=== PATIENT | female | born 1950 | race Caucasian/White ===

== ENCOUNTER → 2017-09-10 13:01 | Outpatient (CLI) | payer MEDICARE, SELFPAY ==
--- NOTE | 2017-09-10 13:06 | XR_ITS ---
XR knee RT 4V HISTORY: ITS.REASON: Right knee pain ORDERING PHYSICIAN: Manuel Sims MD PATIENT AGE: 67 years COMPARISON: 03/15/2014 FINDINGS: Weightbearing views are performed There are moderate to severe osteoarthritic changes of the medial compartment with mild to moderate osteoarthritic changes of the lateral compartment and patellofemoral joint. Calcific densities once again noted in the popliteal fossa which measures 18 mm not significant change. No fracture or dislocation. IMPRESSION: Moderate to severe osteoarthritis of the right knee not signaling change compared to the previous exam. No change partial calcified loose body in the popliteal fossa
== END ==
PROVIDERS: PCP Family Medicine; Visit Provider Orthopaedic Surgery
DX: M25.561 Pain in right knee (principal)
CPT/HCPCS: 73564

== ENCOUNTER → 2017-09-28 08:39 | Outpatient (CLI) | payer MEDICARE, SELFPAY ==
[2017-09-28 08:57] LABS: Blood Urea Nitrogen 20 mg/dL (7-18); Creatinine,Serum 1.05 mg/dL (0.55-1.02); Estimated Glomerular Filt Rate 53 ml/min (>60); GFR (African American) 64 ML/MIN (>60)
--- NOTE | 2017-09-28 09:03 | CT_ITS ---
CT abdomen wo/w con CLINICAL INDICATION: ITS.REASON: STEATOSIS OF THE LIVER ORDERING PHYSICIAN: Trey Evans MD PATIENT AGE: 67 years COMPARISON: None TECHNIQUE: Axial images obtained with sagittal and coronal reformats. PROCEDURE: Oral Contrast: None IV Contrast: 75 mL's of Isovue-370. FINDINGS: Lung bases are clear aside from a calcified granuloma in the left lower lobe. No focal liver lesion. There is mild diffuse hepatic steatosis. There has been prior cholecystectomy. No ductal dilatation. Spleen, adrenal glands, and pancreas have an unremarkable appearance. There is a 2.8 cm isodensity involving the left kidney anteriorly consistent with a renal cyst. A smaller cyst is present along the lower pole the left kidney at 1.6 cm. No obstructing renal or ureteral calculi. Unremarkable appendix. There are scattered diverticula throughout the colon including the cecum. These are more prominent in the sigmoid colon. There is no evidence of diverticulitis. No pelvic mass, abnormal fluid collection, or focal inflammatory changes evident. No evidence of intestinal obstruction or free air. No acute bony anomalies. IMPRESSION: 1. Mild hepatic steatosis. 2. An colonic diverticulosis without diverticulitis. 3. Left renal cysts
== END ==
PROVIDERS: Family Provider Nurse Practitioner Family; PCP Family Medicine; Visit Provider Family Medicine
DX: K76.0 Fatty (change of) liver, not elsewhere classified (principal)
CPT/HCPCS: 36415; 74170; 82565; 84520; Q9967

== ENCOUNTER → 2018-03-15 09:41 | Outpatient (CLI) | payer MEDICARE, SELFPAY ==
--- NOTE | 2018-03-15 09:43 | MM_ITS ---
MM Dig screening mamm BI w/CAD ORDERING PHYSICIAN : Lam Magallon MD PATIENT AGE: 67 years GENDER: Female COMPARISON: INDICATION: ITS.REASON: Routine Mammogram Screening 67-year-old previous lumpectomy with radiation on right no new complaints. No hormones. Family history. Patient's daughter with breast cancer age 40. Premenopausal as well TECHNIQUE: Standard CC and MLO images were obtained. R2 CAD reviewed. FINDINGS: LEFT BREAST: STABLE. No new findings. Stable asymmetric areas of density in the left breast appear similar to previous studies dated back to at least 2014 RIGHT BREAST: Right breast is smaller than the left due to previous lumpectomy & radiation. A long-standing scar transversely breast inferior to nipple at left breast again evident from previous lumpectomy & radiation. On today's study note interval development of new calcifications likely related to fat necrosis:.... ..First of all Interval development thin rim-like egg shell type calcification of a density at the left breast, medial inferior to the nipple labeled X. This measures 13 mm length x 8 mm APx 6 mm wide. This most likely reflects an area of fat necrosis with calcification about its margin. ... Second is a small row of dense crush stone like calcification some slight irregular. These extend along structure in the medial retroareolar region generally leading towards the above-mentioned area of calcified fat necrosis. These labeled Y. These calcifications are somewhat nonspecific but most likely reflect fat necrosis... I would recommend a follow-up study in 6 months to further characterize this latter grouping calcifications. More likely related to fat necrosis but nonspecific ovoid fat density area labeled Z at the medial right breast is unchanged since 2015) (compatible with an area of fat necrosis or possibly circumscribed lipoma it measures 20 mm X a 12 mm. At this feature and become apparent since 2014 -------IMPRESSION 1. RIGHT BREAST. -- Recommend follow-up right mammogram 6 months ... Previous lumpectomy & radiation results in decreased volume & scarring. ... New ovoid area of fat necrosis. The rim-like,calcification measuring 13 mm x 8 mm at the inferior medial breast near the transverse incision. This area labeled X ... New Row of dense calcifications labeled Y. These calcifications are fairly dense but variable slight irregular more nonspecific, but at this point I would favor that necrosis with overall findings. But would recommend a follow-up right mammogram 6 months to further evaluate 6 month follow-up mammogram on right Follow-up would be important & should be emphasized 2. LEFT BREAST- stable. Follow-up left mammogram 1 year BI-RADS Category: 3 Probably Benign Finding Short Term Follow-up RECOMMENDED FOLLOW-UP: 6M 6 MONTH FOLLOW-UP Right mammogram 6 months (A letter has been sent to the patient regarding results of the study.)
== END ==
PROVIDERS: Family Provider Nurse Practitioner Family; PCP Family Medicine; Visit Provider Nurse Practitioner Obstetrics & Gynecology
DX: Z12.31 Encounter for screening mammogram for malignant neoplasm of breast (principal)
CPT/HCPCS: 77067

== ENCOUNTER → 2018-04-21 08:47 | Outpatient (CLI) | payer MEDICARE, SELFPAY ==
--- NOTE | 2018-04-21 08:50 | XR_ITS ---
XR knee RT 4V HISTORY: ITS.REASON: RIGHT KNEE PAIN/ WEIGHTBEARING VIEWS ORDERING PHYSICIAN: James Anderson MD PATIENT AGE: 67 years COMPARISON: 09/10/2017 FINDINGS: Severe osteoarthritic changes are present involving the medial compartment with loss of joint space also sclerosis and osteophyte formation. There are mild osteoarthritic changes of the patellofemoral joint. Small suprapatellar effusion suspected. A coarse 19 mm calcific density is once again noted in the popliteal fossa and may be due to a synovial osteochondroma. There is a lucent defect involving the proximal tibia at the lateral tibial spine area which could be due to a subarticular cyst not significant change. No fracture or dislocation. There is some subcortical lucency of the medial femoral condyle millimeters small subarticular cyst. IMPRESSION: Severe osteoarthritis synovial osteochondroma and possible small subarticular cyst of the proximal tibia and of the medial femoral condyle. Osteoarthritis may be slightly worse compared to the previous exam. The synovial osteochondromas appears slightly larger however, this could be due to magnification
== END ==
PROVIDERS: PCP Family Medicine; Visit Provider Orthopaedic Surgery
DX: M25.561 Pain in right knee (principal)
CPT/HCPCS: 73564

== ENCOUNTER → 2018-05-20 11:51 | Outpatient (CLI) | payer MEDICARE, SELFPAY ==
[2018-05-20 12:04] LABS: Microscopic, Urine URINE MICROSCOPIC (MICROSCOPIC)
--- NOTE | 2018-05-20 12:26 | XR_ITS ---
XR chest 2V HISTORY: Smoker. Hypertension. Cough. ITS.REASON: HTN, SMOKER ORDERING PHYSICIAN: James Anderson MD PATIENT AGE: 67 years Technique: Tian lateral chest COMPARISON: CT chest June 25, 2017. 2 view CXR: PA & lateral chest Jun 22, 2017 FINDINGS: No significant new or acute findings. I would note minimal linear scarring & atelectasis at the bases bilaterally. This is most evident with posterior sulcus on the lateral view but there is also some minimal linear scarring towards the projected over the right hemidiaphragm and towards left CP angle. With atelectasis cancer minimal linear densities in these regions.. No discrete focal infiltrate. No definitive new nodules identified. Apices the lungs are clear. Heart is normal in siz. With Normal pulmonary vascularity. . Yancy and mediastinal structures satisfactory. Minimal Calcified aortic knob again observed. Stable calcified granuloma at the left midlung IMPRESSION: , 1 Bibasilar atelectasis Linear,/ discoid atelectasis toward both lung bases. . 2. Nothing definitely acute otherwise evident. Mild hyperexpansion mild chronic changes.
[2018-05-20 12:38] LABS: Basophils # 0.1 K/mm3 (0-0.2); Basophils % 0.8 % (0.1-2.0); Eosinophils # 0.5 K/mm3 (0.0-0.4); Eosinophils % 6.8 % (0.1-12.0); Hematocrit 40.3 % (37.0-47.0); Hemoglobin 12.7 g/dL (12.2-16.2); Lymphocytes # 1.7 K/mm3 (0.7-4.5); Lymphocytes % 22.8 K/mm3 (10-50); Mean Corpuscular HGB Conc 31.5 g/dL (31.8-35.4); Mean Corpuscular Hemoglobin 28.2 pg (27.0-31.2); Mean Corpuscular Volume 89.6 fl (81-99); Mean Platelet Volume 6.8 fl (7.4-10.4); Monocytes # 0.5 K/mm3 (0.1-1.0); Neutrophils # 4.8 K/mm3 (1.8-7.8); Neutrophils % 63.6 % (37.0-80.0); Platelet Count 408 K/mm3 (142-424); Red Blood Count 4.49 M/mm3 (4.20-5.40); Red Cell Distribution Width 13.5 % (11.5-17.5); White Blood Count 7.6 K/mm3 (4.8-10.8)
[2018-05-20 13:21] LABS: Appearance,Urine CLEAR (Clear); Bilirubin,Urine Negative (Negative); Blood, Urine Negative (Negative); Color,Urine YELLOW (Yellow); Glucose,Urine (UA) Negative (Negative); Ketones,Urine Negative (Negative); Leukocyte Esterase,Urine 1+ (Negative); Nitrate,Urine Negative (Negative); PH,Urine 6.5 (5.0-8.5); Protein,Urine Negative (Negative); Specific Gravity, Urine 1.025 (1.005-1.030)
[2018-05-20 13:28] LABS: Bacteria,Urine Trace /lpf
[2018-05-20 14:21] LABS: Alanine Aminotransferase 21 U/L (12-78); Albumin/Globulin Ratio 1.4 (1.1-1.8); Alkaline Phosphatase 65 U/L (46-116); Anion Gap 12.3 mEq/L (5-15); Aspartate Amino Transferase 17 U/L (15-37); Bilirubin,Total 0.3 mg/dL (0.2-1.0); Blood Urea Nitrogen 20 mg/dL (7-18); Carbon Dioxide 26 mmol/L (21.0-32.0); Chloride 101 mmol/L (98-107); Creatinine,Serum 0.95 mg/dL (0.55-1.02); Estimated Glomerular Filt Rate 59 ml/min (>60); GFR (African American) 71 ML/MIN (>60); Globulin 2.9 gm/dl (1.3-3.2); Glucose 98 mg/dL (74-106); Potassium 4.3 mmoL/L (3.5-5.1); Sodium 135 mmol/L (136-145); Total Protein,Serum 6.9 gm/dL (6.4-8.2)
== END ==
PROVIDERS: PCP Family Medicine; Visit Provider Orthopaedic Surgery
DX: Z01.818 Encounter for other preprocedural examination (principal); M25.561 Pain in right knee; R82.90 Unspecified abnormal findings in urine
CPT/HCPCS: 36415; 71046; 80053; 81001; 85025; 86850; 87086; 87088; 93005

== ENCOUNTER → 2018-06-05 11:42 | Outpatient (CLI) | payer MEDICARE, SELFPAY ==
[2018-06-05 11:46] LABS: Microscopic, Urine URINE MICROSCOPIC (MICROSCOPIC)
[2018-06-05 11:53] LABS: Appearance,Urine CLEAR (Clear); Bilirubin,Urine Negative (Negative); Blood, Urine Negative (Negative); Color,Urine YELLOW (Yellow); Glucose,Urine (UA) Negative (Negative); Ketones,Urine Negative (Negative); Leukocyte Esterase,Urine 1+ (Negative); Nitrate,Urine Negative (Negative); Protein,Urine Negative (Negative); Urobilinogen,Urine 0.2 EU/dl (0.2)
[2018-06-05 13:24] LABS: Hyaline Casts,Urine Occasional #/lpf (0)
[2018-06-05 13:25] LABS: Bacteria,Urine 1+ /lpf
== END ==
PROVIDERS: Visit Provider Orthopaedic Surgery
DX: Z01.818 Encounter for other preprocedural examination (principal)
CPT/HCPCS: 81001; 87086

== ENCOUNTER 2018-06-07 06:03 | Inpatient (IN) ==
--- NOTE | 2018-06-07 08:26 | Progress Note ---
[facility] Anesthesia Checklist - Structural Data Admitted From: Home Planned Operative Procedure/s: r total knee Consent for Planned Operative Procedure(s) Verified: Yes Verified Documents: Surgical Consent - Airway Assessment C-Spine Mobility Assessed: Yes TMJ Mobility Assessed: Yes Dentition: Dentures-good fit - Neurological Assessment Level of Consciousness: Awake, Alert, Appropriate - Anesthesia Plan Anesthesia Risk discussed: Yes Anesthesia Plan: Verified ASA Class: II Anesthesia Type: General - Preoperative Comments Pre-Operative Comments: exp mfem sciatic block to pt incl risks, pt agrees to proceed w block [facility] History I have reviewed the patient's past medical history: Yes Medical History: Reports:: Cancer (breast), Hypertension Denies:: Diabetes Mellitus Type 1, Diabetes Mellitus Type 2, Internal Pacemaker, MRSA, Seizures Other Medical History: Denies: Blood Transfusion Reaction Laterality Cases: Right: Breast Biopsy, Lumpectomy Other Surgeries: Yes: Cholecystectomy, Other. No: Pacemaker Amputation: No Fractures: No - *Social History Educational Level: Completed College Smoking Status: Current every day smoker Tobacco Type: cigarettes # Packs/Day (cigarettes): 1 Alcohol Intake: never Occupational Status: retired Household Members: none - Psychiatric History Expresses thoughts of harming self/others: None Suicide Plan Description: No Plan *Family Hx:: Hypertension, Coronary Artery Disease
--- NOTE | 2018-06-07 11:11 | Progress Note ---
[facility] Anesthesia Record Part II Discharge Time: 11:35 Destination: floor PACU nurse assessment reviewed?: Yes Patient Condition:: Good Anesthesia Complications:: None
--- NOTE | 2018-06-07 11:11 | Progress Note ---
[facility] Anesthesia Record Part I Intake, IV Amount: 2,500 Estimated blood loss (mL): 50 Urine output (mL): 150 Blood Pressure: 114/65 SaO2: 92 Pulse Rate: 92 Respiratory Rate: 12 Temperature: 98.1 F Patient is:: Drowsy, Stable Stable to PACU at:: 11:05
--- NOTE | 2018-06-07 12:11 | Operative Note ---
Date of procedure: 06/07/18 Pre-op Diagnosis:: Advanced degenerative arthritis, right knee Post-op Diagnosis:: Same Procedure performed:: Cemented primary total knee arthroplasty, right knee Surgeon:: James Anderson MD Spare Hand(s):: Natalie Fenton CUT OFF MACHINE UNLOADER:: Ignacio Graham Anesthesia: GETA, regional Estimated blood loss (mL): 50 Clinical Note:: Patient is a 67-year-old female with end-stage osteoarthritis and [id number] osteoarthritis of the medial compartment with a progressive varus deformity and flexion contracture of her right knee presented with unremitting severe pain not relieved by conservative management. The pain is advanced to the point that it is becoming a hazard for the patient with risk of falling and injuring herself. Total knee arthroplasty is indicated to relieve the pain, improve function, reduce the risk of falls and improve quality of life. Please refer to my office note for full details. Operative findings:: As noted on the preoperative evaluation, the knee joint had a fixed flexion of 5 and fixed varus deformity. As seen on the x-rays, the medial and patellofe moral compartments showed advanced degenerative changes with [id number] appearance. The menisci and cruciate ligaments were significantly degenerated. There was extensive osteophyte formation over all 3 compartments. There were a couple of loose bodies at the back of the knee. Bone quality was satisfactory. Operative note:: On the day of the surgery the patient and her sister were seen in the preoperative area. I reviewed the clinical and x-ray findings with the patient and her sister. I again discussed the diagnosis, natural history and management options in detail including both nonsurgical and surgical. She has end-stage degenerative arthritis of her RIGHT knee and has failed to respond satisfactorily to conservative management so far and has opted for a RIGHT total knee arthroplasty. Her knee joint give out and she is at risk of falls resulting in fractures. We again discussed the details of the procedure, risks and benefits and alternatives in detail. The complications discussed include but are not limited to infection, injury to nerves and blood vessels including injury to popliteal artery, injury to tendons and ligaments, DVT and PE, fat embolism, intraoperative fracture, limb length inequality, patella fracture, patellofemoral instability, patellar clunk syndrome, quadriceps and patellar tendon rupture, implant failure, component loosening, periprosthetic femur and tibia fractures, stiffness(arthrofibrosis), limp, incomplete relief of pain, incomplete functional recovery, likely need for further surgery in future including revision and anesthetic complications including heart attack, stroke and even . We discussed how any of these events can be devastating. We have discussed nonsurgical alternatives as well. Patient understands wishes to proceed with a RIGHT total knee arthroplasty and I believe that she is fully informed as to the risks, benefits, and alternatives including nonsurgical alternatives. We also discussed the postoperative course including the rehab and physical therapy required. She lives with her family and is planning to go back home with home health after surgery. A physical examination was performed and documented. Patient understood the risks, agreed to proceed with surgery, [signed the consent form] and no guarantees or assurances were given or implied. The patient was then brought to the operating room and a general anesthesia was administered by the tire setter. Prior to that patient had femoral and sciatic nerve blocks in the pre-anesthetic area. The patient was then positioned supine on the operating table. All the bony prominences were appropriately padded. A well-padded tourniquet cuff was placed high over the upper thigh. The RIGHT knee was prepped with isopropyl alcohol followed by chlorhexidine and draped in the usual sterile fashion. Prior to this, patient had used Hibiclens for a total of 5 days prior to the surgery and also used topical intranasal Bactroban. The entire operative team wore isolation suits and the Operating Room traffic was controlled. The skin incision was marked for a medial parapatellar approach to the knee joint. The entire operative site was sealed off with Ioban drape. A preprocedure timeout was performed as per hospital protocol. At the start of the procedure administration of 2 g of prophylactic IV Ancef was confirmed with the anesthetic team. Patient also received 1 g of IV tranexamic acid before starting the procedure and one more gram before wound closure to reduce the postoperative blood loss. A preprocedure timeout was performed as per hospital protocol. The limb was exsanguinated with Esmarch bandage, the knee joint flexed beyond 90 and the tourniquet cuff was inflated to 300 mmHg. Please see the nursing records for a total tourniquet time. I then made a midline incision utilizing a #10 scalpel blade. Electrocautery was used to seal off subcutaneous vessels. The extensor mechanism was exposed, marked and a curvilinear incision made for a medial parapatellar approach using the scalpel blade. The patella was everted carefully and the fat pad resected just enough to allow sufficient visualization of the proximal tibia. The anterior cruciate ligament and the anterior aspects of both menisci were resected. An appropriate medial release was performed with the knife and Ania elevator. A step drill was used to open the intramedullary canal and the IM distal femoral cutting jig was placed. The jig was pinned into position and the intramedullary maura removed. The distal cut was made at 5 degrees of valgus and the sizing jig placed. This sized best at a size 4 femur for the [employer] system. We then placed the 4-in-1 cutting block in position in 3 degrees of external rotation. A cross pin was added for stabilizing the block and the bina wing utilized to ensure notching of the femur would not occur. The anterior cut was made followed by the posterior cut then the posterior chamfer and finally the anterior chamfer cuts in that order. Soft tissues were protected throughout this with careful retraction using the Z retractors. We checked for trueness of cuts and then moved on to the tibia. The tibial extra medullary guide was placed and aligned from the central aspect of the plateau between the spines down to the second metatarsal base. We pinned cutting block in position for minimal resection of the tibia from the medial side which was more severely involved with arthritis, checked alignment, protected the soft tissues with appropriate retractors and resected with the Netlist saw. The resected tibial plateau articular surface was removed and sized it at a size 3. We ensured correctness of the cut and correct posterior slope. We then checked the extension and flexion gaps and found them to be equal and well balanced. We trialed the femur and the tibia with trial components and a trial insert and ranged the knee to ensure full flexion and extension and checked for ligamentous stability. We then everted the patella and reamed for a 29 mm central pegged button. We had lateralized the femur and medialized the patella intentionally. We placed trial components and noted that a 11 mm thick polyethylene to fit best. This gave us a ligamentously stable knee and allowed full extension. We allowed this to be free-floating and then checked it and made sure it was in appropriate position in relation to the tibial tubercle. We also used tibial alignment maura to check for satisfactory position of the base plate and markings were made with electrocautery on the proximal tibia. We then elected to proceed with the box cut for a posterior stabilized femoral component. We placed the cutting jig for the box cut in the femur, drilled and then used the box osteotome to create the channel. We then trialed with the posterior stabilized polyethylene and found a size 11 to fit best. This gave us appropriate range of motion with proper ligamentous stability. We then removed the trial components and positioned and pinned the base plate to the top of the tibia and punched the groove for the V shaped stem. We used a small trocar tipped pin drill holes into the subchondral sclerotic bone of the medial tibia to augment cement fixation. We then copiously irrigated with the normal saline pulse lavage, injected the bone with 2 g of Ancef, and then dried the cut surfaces. We then cemented the tibial tray, the femoral component, and placed a 11 mm trial insert and brought the knee into extension. We then cemented the patella button. We allowed the cement to set and then inspected the knee joint and removed excess cement with an osteotome. We then placed the size 11 definitive polyethylene tibial insert ensuring that the dovetails fit appropriately and that the polyethylene was down and seated into the tibial tray properly. The knee joint was put through range of motion and noted the patella to be tracking appropriately with no thumb technique. The knee joint was then soaked with dilute Betadine (0.35 percent) solution for 3 minutes followed by suctioning of the solution and pulsatile lavage with the 1 L of normal saline. The tourniquet was deflated and hemostasis obtained with diathermy cautery. Another 1 gram of tranexamic acid was given intravenously by the tire setter at the time of deflating the tourniquet. The knee joint was again thoroughly irrigated with pulse lavage and good hemostasis was confirmed before proceeding with wound closure. The capsule/extensor mechanism was closed with #1 Vicryl [id number] sutures ensuring a watertight closure. Next, the subcutaneous tissue was closed with 2-0 Vicryl interrupted sutures. The skin was closed with subcuticular 4-0 Monocryl sutures, Dermabond and Steri-Strips. Sterile dressings were applied consisting of Silverlon dressing, ABDs, soft roll and secured in place with Addi wrap. No drains were placed. The patient was then transferred from the operating table onto the bed. The tibialis posterior and dorsalis pedis pulses were noted 2+ with good capillary refill in the foot. The patient was then reversed from the anesthetic and transported to the postoperative recovery area in a stable condition. Patient tolerated the procedure well and there were no immediate complications. The swab, needle and instrument counts were correct according to the scrub team at the end of the procedure. Portable x-rays of the RIGHT knee AP view and lateral view were obtained in the recovery area which showed the components to be well fixed in a satisfactory alignment and position without any complications. The knee was placed in a knee immobilizer which should be continued when standing and walking, until patient regains full quadriceps control. Postoperatively, institute and continue standard precautions and physical therapy and edema management for a standard primary total knee arthroplasty starting on postoperative day 1. Patient can be mobilized full weightbearing as tolerated. Implants: [employer] Katelin II nonporous RIGHT tibial base plate-size 3 [employer] Katelin II Biconvex patellar component-29 mm [employer] posterior stabilized Legion Oxinium femoral component, size 4 RIGHT [employer] Legion PS XLPE high flexion articular insert- size 3-4 x 11 mm [employer] Versabond bone cement with gentamicin. Industry paper sales representative: Franck Tadeo ([employer]ern[employer]hew) Tourniquet time (min): 120 Condition: stable Disposition: floor Specimens:: None Complications:: None
--- NOTE | 2018-06-07 12:14 | Pharmacy Consult Notes ---
[facility] Pharmacy VTE Monitoring - Patient Demographics Admission date: 06/07/18 Report Date: 06/07/18 Time: 12:13 Allergies/Adverse Reactions: Patient Allergies No Known Allergies Allergy (Unverified 09/10/17 13:46) Height: 1.65 m Weight: 89.811 kg - VTE Risk VTE Score: 4 VTE Risk Level: Low Risk - Prophylaxis VTE Prophylaxis Ordered?: Yes Types of VTE Prophylaxis: IPCS Thigh High Location of Applied Device: Bilateral Lower Extremeties - VTE Diagnosis Confirmed Treatment or plan recommended: Continue Current Treatment
--- NOTE | 2018-06-07 18:24 | Consult Report ---
*Admission Date: 06/07/18 *Chief complaint: Status post right knee replacement *History of present illness: FAMILY MEDICINE CONSULT This 67-year-old white female patient is well-known to me. I have been asked to see her in consultation. She underwent right knee replacement this morning by Dr. Anderson. She states She is feeling "great". The patient has a significant past smoking history but discontinued cigarettes 2 weeks ago in preparation for her surgery. She has been on Chantix and it has done very well for her. She has a long-standing history of hypertension and is treated for that. I see that her medications have been ordered and I have reviewed them accordingly. [facility] History Medical History: Reports:: Hyperlipidemia, Hypertension Denies:: Cancer, Diabetes Mellitus Type 1, Diabetes Mellitus Type 2, Internal Pacemaker, MRSA, Seizures Other Medical History: Denies: Blood Transfusion Reaction Laterality Cases: Right: Breast Biopsy, Lumpectomy Other Surgeries: Yes: Cholecystectomy, Other. No: Pacemaker Amputation: No Fractures: No - *Social History Educational Level: Completed College Smoking Status: Former smoker Tobacco Type: cigarettes # Packs/Day (cigarettes): 1 Alcohol Intake: never Occupational Status: retired Housing: house Household Members: none - Psychiatric History Expresses thoughts of harming self/others: None Suicide Plan Description: No Plan *Family Hx:: Hypertension, Coronary Artery Disease Review of Systems - Review of Systems Review of systems:: pertinent systems reviewed and negative unless documented below - *Cardiovascular Denies chest pain - *Respiratory Comments: Her respiratory status has improved since discontinuing cigarettes. Meds Home Medications Medication Instructions Recorded Confirmed Type fenofibrate 160 mg tablet 160 mg PO DAILY 09/10/17 06/07/18 History potassium chloride ER 10 mEq 10 meq PO DAILY 09/10/17 06/07/18 History tablet,extended release bupropion HCl SR 150 mg tablet,12 150 mg PO BID 04/21/18 06/07/18 History hr sustained-release spironolactone 25 mg tablet 25 mg PO DAILY 04/21/18 06/07/18 History umeclidinium 62.5 mcg-vilanterol 1 puff INHALATION DAILY 04/21/18 06/07/18 History 25 mcg/actuation powdr for inhalation varenicline 1 mg tablet 1 mg PO BID 04/21/18 06/07/18 History Acetaminophen [Tylenol] 325 mg PO HS 06/07/18 06/07/18 History Amlodipine/Valsartan [Exforge 1 each PO DAILY 06/07/18 06/07/18 History 5-160 mg Tablet] Levothyroxine Sodium 100 mg PO DAILY 06/07/18 06/07/18 History [Levothyroxine 100mcg (0.1MG) Tab] Pramipexole Di-HCl [Mirapex] 0.125 mg PO HS 06/07/18 06/07/18 History Triamterene/Hydrochlorothiazid 1 each PO DAILY 06/07/18 06/07/18 History [Maxzide 37.5 mg-25 mg Tablet] Allergies Allergy/AdvReac Type Severity Reaction Status Date / Time No Known Allergies Allergy Unverified 09/10/17 13:46 Exam Vital signs and Labs for Last 24 Hours: Temp Pulse Resp BP Pulse Ox 97.8 F 84 20 102/63 L 94 L 06/07/18 17:30 06/07/18 17:30 06/07/18 17:30 06/07/18 17:30 06/07/18 17:30 Laboratory Results - last 24 hr 06/07/18 06:40: Blood Type O Negative, Antibody Screen Negative 06/07/18 08:00: Urine Color Yellow, Urine Appearance Clear, Urine pH 6.0, Ur Specific [place] >= 1.030, Urine Protein Negative, Urine Glucose (UA) Negative, Urine Ketones Negative, Urine Blood Negative, Urine Nitrate Negative, Urine Bilirubin Negative, Urine Urobilinogen 0.2, Ur Leukocyte Esterase Negative, Urine RBC None, Urine WBC None, Ur Squamous Epith Cells 3-5, Urine Bacteria 1+ I & O for Last 24 hours: Intake & Output 06/05/18 06/06/18 06/07/18 06/08/18 11:59 11:59 11:59 11:59 Intake Total 2550 / 2550 600 / 600 Output Total 50 / 50 Balance 2500 / 2500 600 / 600 Weight 198 lb 198 lb - Constitutional no acute distress - *Routine HEENT Exam Head: Present: normocephalic Eye: Present: PERRL ENT: Present: mucous membranes moist - *Routine Neck Exam Present: supple. Absent: lymphadenopathy - *Routine Respiratory Exam Present: CTA bilaterally. Absent: wheezes - *Routine Cardiovascular Exam Present: RRR. Absent: murmur - *Routine Abdominal Exam Present: soft. Absent: tenderness - *Routine Extremities Exam Absent: cyanosis, clubbing, edema Comments: Flowtron device present on the left lower extremity. The right leg is in a brace and with the dressing in place postoperatively. Peripheral pulses are intact bilaterally. - *Routine Neurological Exam Present: alert, oriented X3 Internal Medicine - CN: Reslt - Labs Labs: Urine 06/07/18 Range/Units 08:00 Urine Color Yellow (Yellow) Urine Appearance Clear (Clear) Urine pH 6.0 (5.0-8.5) Ur Specific [place] >= 1.030 (1.005-1.030) Urine Protein Negative (Negative) Urine Glucose (UA) Negative (Negative) Assessment and Plan (1) Arthropathy of knee Current visit: Yes Status: Acute Category: Medical Code(s): M17.10 - Unilateral primary osteoarthritis, unspecified knee (2) Total knee replacement status Current visit: Yes Status: Acute Category: Surgical Code(s): Z96.659 - Presence of unspecified artificial knee joint (3) COPD (chronic obstructive pulmonary disease) Current visit: Yes Status: Acute Category: Medical Code(s): J44.9 - Chronic obstructive pulmonary disease, unspecified (4) Hypertension Current visit: Yes Status: Acute Category: Medical Code(s): I10 - Essential (primary) hypertension (5) Hypothyroidism (acquired) Current visit: Yes Status: Acute Category: Medical Code(s): E03.9 - Hypothyroidism, unspecified - Assessment and plan all Dx Assessment and Plan for all problems:: Medications have been reviewed. Adjustment has been made in the thyroid prescription. I will continue to follow the patient with you. Thank you for this consult.
[2018-06-08 06:23] LABS: Basophils % 0.2 % (0.1-2.0); Eosinophils % 0.3 % (0.1-12.0); Hematocrit 33.1 % (37.0-47.0); Hemoglobin 10.4 g/dL (12.2-16.2); Lymphocytes # 1.3 K/mm3 (0.7-4.5); Lymphocytes % 10.7 K/mm3 (10-50); Mean Corpuscular HGB Conc 31.3 g/dL (31.8-35.4); Mean Corpuscular Hemoglobin 27.9 pg (27.0-31.2); Mean Corpuscular Volume 89.1 fl (81-99); Mean Platelet Volume 7.8 fl (7.4-10.4); Monocytes # 0.8 K/mm3 (0.1-1.0); Monocytes % 6.5 % (1.7-9.3); Neutrophils # 10.1 K/mm3 (1.8-7.8); Neutrophils % 82.4 % (37.0-80.0); Platelet Count 401 K/mm3 (142-424); Red Blood Count 3.72 M/mm3 (4.20-5.40); Red Cell Distribution Width 13.5 % (11.5-17.5); White Blood Count 12.3 K/mm3 (4.8-10.8)
[2018-06-08 06:28] LABS: Anion Gap 12.9 mEq/L (5-15); Calcium 8.1 mg/dL (8.5-10.1); Potassium 3.9 mmoL/L (3.5-5.1)
--- NOTE | 2018-06-08 09:14 | Progress Note ---
Internal Medicine - PN: Subj *Date: 06/08/18 *Time: 09:11 Interval history: FAMILY MEDICINE CONSULT The patient feels well this morning. She is having difficulty with pain and did not sleep well last night. Her vital signs are stable her blood pressure is running low. I tried her to chlorothiazide 12.5 but she has received her combination triamterene Hydrocort thiazide this morning. We need to watch her blood pressure and adjust medications accordingly. Exam Vital signs and Labs for Last 24 Hours: Temp Pulse Resp BP Pulse Ox 98.5 F 80 18 135/66 92 L 06/08/18 08:00 06/08/18 08:00 06/08/18 08:00 06/08/18 08:00 06/08/18 08:00 Laboratory Results - last 24 hr 06/07/18 08:00: Urine Color Yellow, Urine Appearance Clear, Urine pH 6.0, Ur Specific [place] >= 1.030, Urine Protein Negative, Urine Glucose (UA) Negative, Urine Ketones Negative, Urine Blood Negative, Urine Nitrate Negative, Urine Bilirubin Negative, Urine Urobilinogen 0.2, Ur Leukocyte Esterase Negative, Urine RBC None, Urine WBC None, Ur Squamous Epith Cells 3-5, Urine Bacteria 1+ 06/08/18 06:10: WBC 12.3 H, RBC 3.72 L, Hgb 10.4 L, Hct 33.1 L, MCV 89.1, MCH 27.9, MCHC 31.3 L, RDW 13.5, Plt Count 401, MPV 7.8, Neut % (Auto) 82.4 H, Lymph % (Auto) 10.7, [place] % (Auto) 6.5, Eos % (Auto) 0.3, Baso % (Auto) 0.2, Neut # (Auto) 10.1 H, Lymph # (Auto) 1.3, [place] # (Auto) 0.8, Eos # (Auto) 0.0, Baso # (Auto) 0.0 06/08/18 06:10: Sodium 135 L, Potassium 3.9, Chloride 101, Carbon Dioxide 25, Anion Gap 12.9, BUN 19 H, Creatinine 0.90, Estimated Creat Clear 80, Estimated GFR 63, Est GFR ( Amer) 76, Glucose 118 H, Calcium 8.1 L I & O for Last 24 hours: Intake & Output 06/05/18 06/06/18 06/07/18 06/08/18 11:59 11:59 11:59 11:59 Intake Total 2550 / 2550 600 / 600 Output Total 50 / 50 1500 / 1500 Balance 2500 / 2500 -900 / -900 Weight 198 lb 198 lb - Constitutional no acute distress - *Routine HEENT Exam Head: Present: normocephalic Eye: Present: PERRL ENT: Present: mucous membranes moist - *Routine Respiratory Exam Present: CTA bilaterally - *Routine Cardiovascular Exam Present: RRR - *Routine Extremities Exam Comments: Range of motion of the toes and feet and circulation are intact. Assessment and Plan (1) Arthropathy of knee Current visit: Yes Status: Acute Category: Medical Code(s): M17.10 - Unilateral primary osteoarthritis, unspecified knee (2) Total knee replacement status Current visit: Yes Status: Acute Category: Surgical Code(s): Z96.659 - Presence of unspecified artificial knee joint (3) COPD (chronic obstructive pulmonary disease) Current visit: Yes Status: Acute Category: Medical Code(s): J44.9 - Chronic obstructive pulmonary disease, unspecified (4) Hypertension Current visit: Yes Status: Acute Category: Medical Code(s): I10 - Essential (primary) hypertension (5) Hypothyroidism (acquired) Current visit: Yes Status: Acute Category: Medical Code(s): E03.9 - Hypothyroidism, unspecified - Assessment and plan all Dx Assessment and Plan for all problems:: Monitor blood pressure as noted. I will continue to follow the patient with you.
--- NOTE | 2018-06-08 10:45 | Progress Note ---
Subjective Date: 06/08/18 Time: 09:45 Principal diagnosis: Status post total knee arthroplasty, right Interval history: Patient is status post right knee arthroplasty post op day #1. Patient is sitting out in the chair. Patient says she is doing well now but had a rough night because of pain. She says the pain medication is helping control the pain but it only lasts for couple of hours or so. She also says that her foot and ankle are still numb. No history of any nausea or vomiting. No history of any cough, chest pain, shortness of breath or palpitations. Patient says she is eating and drinking well. The indwelling catheter was removed this morning. PN: Obj Ex Vital signs: Temp Pulse Resp BP Pulse Ox 98.5 F 80 16 135/66 92 L 06/08/18 08:00 06/08/18 09:28 06/08/18 09:28 06/08/18 08:00 06/08/18 09:28 Narrative: Laboratory Results - last 24 hr 06/08/18 06:10: WBC 12.3 H, RBC 3.72 L, Hgb 10.4 L, Hct 33.1 L, MCV 89.1, MCH 27.9, MCHC 31.3 L, RDW 13.5, Plt Count 401, MPV 7.8, Neut % (Auto) 82.4 H, Lymph % (Auto) 10.7, [place] % (Auto) 6.5, Eos % (Auto) 0.3, Baso % (Auto) 0.2, Neut # (Auto) 10.1 H, Lymph # (Auto) 1.3, [place] # (Auto) 0.8, Eos # (Auto) 0.0, Baso # (Auto) 0.0 06/08/18 06:10: Sodium 135 L, Potassium 3.9, Chloride 101, Carbon Dioxide 25, Anion Gap 12.9, BUN 19 H, Creatinine 0.90, Estimated Creat Clear 80, Estimated GFR 63, Est GFR ( Amer) 76, Glucose 118 H, Calcium 8.1 L Intake & Output 06/05/18 06/06/18 06/07/18 06/08/18 11:59 11:59 11:59 11:59 Intake Total 2550 / 2550 600 / 600 Output Total 50 / 50 1800 / 1800 Balance 2500 / 2500 -1200 / -1200 Weight 198 lb 198 lb Exam General appearance: alert, active, awake, no acute distress Cardiovascular: regular rate & rhythm, normal peripheral pulses Respiratory: No respiratory distress noted, speaks in full sentences ABD: soft and non tender Neuro: alert,, awake, oriented x 3 Psych: normal mood and affect On examination of the lower extremities the limb lengths are equal. On examination of the right knee the dressings are clean, dry and intact. Soft tissue compartments are soft. Distal pulses are 2+. Capillary refill is brisk. She has numbness over her right foot and ankle. She is actively moving the ankle, foot and the toes. - Urinary Catheter Management Sams Cath placed during this visit: yes Urethral indwelling: Yes Reason for continuing: Surgical procedure Insertion date: 06/07/18 Insertion time: 07:45 Progress Note: A&P (1) Arthropathy of knee Status: Acute Current Visit: Yes (2) Total knee replacement status Status: Acute Current Visit: Yes (3) COPD (chronic obstructive pulmonary disease) Status: Acute Current Visit: Yes (4) Hypertension Status: Acute Current Visit: Yes (5) Hypothyroidism (acquired) Status: Acute Current Visit: Yes Assessment and Plan for All Diagnoses:: I reviewed the clinical and operative findings and procedure performed progress with the patient. I have given her a paper copy of the postoperative x-ray. Patient is seen by physical therapy and recommend continuation of standard postoperative rehab for the total knee replacement. Use knee immobilizer when weightbearing and walking until she regains full quadriceps control and is able to actively straight leg raise. Continue DVT prophylaxis. Discontinue IV fluids. Add Toradol 30 mg p.o. as needed every 6 hourly for pain. Case management consult regarding discharge planning. Medical management as per Dr. Evans.
--- NOTE | 2018-06-09 09:32 | Progress Note ---
Internal Medicine - PN: Subj *Date: 06/09/18 *Time: 09:29 Interval history: FAMILY MEDICINE CONSULT The patient is doing well. I made a subtle change in her blood pressure medicine due to her pressures running a bit low. She has some rhonchi on the right this morning. She is encouraged to use her incentive spirometry Exam Vital signs and Labs for Last 24 Hours: Temp Pulse Resp BP Pulse Ox 98.5 F 95 H 20 116/61 93 L 06/09/18 07:49 06/09/18 07:49 06/09/18 07:49 06/09/18 07:49 06/09/18 07:49 I & O for Last 24 hours: Intake & Output 06/06/18 06/07/18 06/08/18 06/09/18 11:59 11:59 11:59 11:59 Intake Total 2550 / 2550 600 / 600 250 / 250 Output Total 50 / 50 1800 / 1800 300 / 300 Balance 2500 / 2500 -1200 / -1200 -50 / -50 Weight 198 lb 198 lb - Constitutional no acute distress - *Routine HEENT Exam Head: Present: normocephalic Eye: Present: PERRL ENT: Present: mucous membranes moist - *Routine Respiratory Exam Comments: Some rhonchi on the right. The improved with deep inspirations. - *Routine Extremities Exam Comments: 1-2+ edema of the right leg. Trace on the left leg. Color is good. Range of motion of the feet and toes is normal. Circulation seems intact. Assessment and Plan (1) Arthropathy of knee Current visit: Yes Status: Acute Category: Medical Code(s): M17.10 - Unilateral primary osteoarthritis, unspecified knee (2) Total knee replacement status Current visit: Yes Status: Acute Category: Surgical Code(s): Z96.659 - Presence of unspecified artificial knee joint (3) COPD (chronic obstructive pulmonary disease) Current visit: Yes Status: Acute Category: Medical Code(s): J44.9 - Chronic obstructive pulmonary disease, unspecified (4) Hypertension Current visit: Yes Status: Acute Category: Medical Code(s): I10 - Essential (primary) hypertension (5) Hypothyroidism (acquired) Current visit: Yes Status: Acute Category: Medical Code(s): E03.9 - Hypothyroidism, unspecified - Assessment and plan all Dx Assessment and Plan for all problems:: Continue present treatment. Encourage incentive spirometry.
--- NOTE | 2018-06-09 13:38 | Progress Note ---
Subjective Date: 06/09/18 Time: 11:45 Principal diagnosis: Status post total knee arthroplasty, right Interval history: Patient is status post right total knee arthroplasty post op day # 2. Patient is sitting out in the chair. Patient says she is doing well and her pain is well controlled with medication. She reports that the sensation has come back into her right foot and ankle. No history of any nausea or vomiting. No history of any cough, chest pain, shortness of breath or palpitations. Patient says she is eating and drinking well. She says she is having physical therapy and progressing well. PN: Obj Ex Vital signs: Temp Pulse Resp BP Pulse Ox 98.5 F 95 H 18 116/61 93 L 06/09/18 07:49 06/09/18 07:49 06/09/18 11:25 06/09/18 07:49 06/09/18 07:49 Narrative: Intake & Output 06/07/18 06/08/18 06/09/18 06/10/18 11:59 11:59 11:59 11:59 Intake Total 2550 / 2550 600 / 600 250 / 250 360 / 360 Output Total 50 / 50 1800 / 1800 650 / 650 Balance 2500 / 2500 -1200 / -1200 -400 / -400 360 / 360 Weight 198 lb 198 lb Exam General appearance: alert, active, awake, no acute distress Cardiovascular: regular rate & rhythm, normal peripheral pulses Respiratory: No respiratory distress noted, speaks in full sentences ABD: soft and non tender Neuro: alert, awake, oriented x 3 Psych: normal mood and affect On examination of the lower extremities the limb lengths are equal. On examination of the right knee the dressings are clean, dry and intact. I have removed the pressure bandages and left the [place] dressing only. The dressing is dry and intact. No signs of any bleeding, discharge or erythema noted. Soft tissue compartments are soft. Distal pulses are 2+. Capillary refill is brisk. Sensation is intact light touch throughout. She is actively moving the ankle, foot and the the toes. She not able to actively straight leg raise. - Urinary Catheter Management Sams Cath placed during this visit: yes Urethral indwelling: Yes Reason for continuing: Surgical procedure (Removed on first postop day) Insertion date: 06/07/18 Insertion time: 07:45 Progress Note: A&P (1) Arthropathy of knee Status: Acute Current Visit: Yes (2) Total knee replacement status Status: Acute Current Visit: Yes (3) COPD (chronic obstructive pulmonary disease) Status: Acute Current Visit: Yes (4) Hypertension Status: Acute Current Visit: Yes (5) Hypothyroidism (acquired) Status: Acute Current Visit: Yes Assessment and Plan for All Diagnoses:: I reviewed the clinical findings and progress with the patient. Continue mobilization as tolerated and continue standard physical therapy for a total knee arthroplasty. Use knee immobilizer when weightbearing and walking until she regains full quadriceps control and is able to actively straight leg raise. Continue DVT prophylaxis. Case management consult regarding discharge planning. Medical management as per Dr. Evans.
--- NOTE | 2018-06-10 08:41 | Progress Note ---
Internal Medicine - PN: Subj *Date: 06/10/18 *Time: 08:38 Interval history: FAMILY MEDICINE She is feeling well this morning. She anticipates discharge to home. She will have [facility] for physical therapy. Her blood pressure is good this morning. Her lungs are clear this morning. She did use the incentive spirometry faithfully yesterday. I have told her to maintain her regular blood pressure medicines and follow-up with me in the office next week. She is able to check her blood pressures at home. Exam Vital signs and Labs for Last 24 Hours: Temp Pulse Resp BP Pulse Ox 98.4 F 92 H 18 130/71 95 06/10/18 07:59 06/10/18 07:59 06/10/18 07:59 06/10/18 07:59 06/10/18 07:59 I & O for Last 24 hours: Intake & Output 06/07/18 06/08/18 06/09/18 06/10/18 11:59 11:59 11:59 11:59 Intake Total 2550 / 2550 600 / 600 250 / 250 1080 / 1080 Output Total 50 / 50 1800 / 1800 650 / 650 700 / 700 Balance 2500 / 2500 -1200 / -1200 -400 / -400 380 / 380 Weight 198 lb 198 lb - Constitutional no acute distress - *Routine HEENT Exam Head: Present: normocephalic Eye: Present: PERRL ENT: Present: mucous membranes moist - *Routine Respiratory Exam Present: CTA bilaterally - *Routine Cardiovascular Exam Present: RRR - *Routine Abdominal Exam Present: soft - *Routine Extremities Exam Comments: Circulation is good. There is a little more edema in the right leg than the left but no increase total. Assessment and Plan (1) Arthropathy of knee Current visit: Yes Status: Acute Category: Medical Code(s): M17.10 - Unilateral primary osteoarthritis, unspecified knee (2) Total knee replacement status Current visit: Yes Status: Acute Category: Surgical Code(s): Z96.659 - Pre sence of unspecified artificial knee joint (3) COPD (chronic obstructive pulmonary disease) Current visit: Yes Status: Acute Category: Medical Code(s): J44.9 - Chronic obstructive pulmonary disease, unspecified (4) Hypertension Current visit: Yes Status: Acute Category: Medical Code(s): I10 - Essential (primary) hypertension (5) Hypothyroidism (acquired) Current visit: Yes Status: Acute Category: Medical Code(s): E03.9 - Hypoth yroidism, unspecified - Assessment and plan all Dx Assessment and Plan for all problems:: Continue blood pressure medicines. Follow-up in the office of [facility].
[2018-06-10 10:04] LABS: Basophils % 0.3 % (0.1-2.0); Eosinophils # 0.3 K/mm3 (0.0-0.4); Eosinophils % 3.1 % (0.1-12.0); Lymphocytes # 1.1 K/mm3 (0.7-4.5); Mean Corpuscular HGB Conc 32.3 g/dL (31.8-35.4); Mean Corpuscular Hemoglobin 28.4 pg (27.0-31.2); Monocytes # 0.5 K/mm3 (0.1-1.0); Monocytes % 5.4 % (1.7-9.3); Neutrophils # 7.3 K/mm3 (1.8-7.8); Neutrophils % 79.1 % (37.0-80.0); Platelet Count 430 K/mm3 (142-424); Red Blood Count 3.86 M/mm3 (4.20-5.40); Red Cell Distribution Width 13.3 % (11.5-17.5); White Blood Count 9.3 K/mm3 (4.8-10.8)
[2018-06-10 10:10] LABS: Anion Gap 10.7 mEq/L (5-15); Calcium 8.6 mg/dL (8.5-10.1); Potassium 3.7 mmoL/L (3.5-5.1)
--- NOTE | 2018-06-10 12:42 | Discharge Summary ---
General - General Admission date:: 06/07/18 Discharge date: 06/10/18 HPI HPI: Patient is a 67-year-old female with advanced degenerative joint disease of the right knee who is admitted to the hospital electively following an uncomplicated primary total knee arthroplasty on 06/21/2018. She has not responded well to conservative management including NSAID, Tylenol, and intra-articular injections and arthroscopic surgery in the past. She is using assistive walking devices. Total knee arthroplasty is indicated to reduce the risk of falls, improve her pain and mobility and quality of life. The surgical and nonsurgical alternatives were discussed in detail with the patient as well as the risks and benefits of the surgery. The patient has a significant past smoking history but discontinued cigarettes 2 weeks ago in preparation for her surgery. She has been on Chantix and it has done very well for her. She has a long-standing history of hypertension and is treated for that. Hospital Course Hospital Course: Patient underwent an uncomplicated straightforward primary right total knee arthroplasty on 06/07/2018. Following surgery patient progressed well without any complications. Her postoperative check x-ray was satisfactory with good alignment and fixation of the components. She progressed rapidly with physical therapy and was able to mobilize using a walker. At the time of discharge she still has not regained good quadriceps control and was advised to mobilize with the knee immobilizer until she fully regains quadriceps control and is able to actively straight leg raise. Her pain is well controlled with as needed oral Percocet. The dressings were reduced on the second postoperative day and the wound is healthy and healing well. No signs of any erythema, induration or discharge. Patient was started on Xarelto 10 mg daily for DVT prophylaxis after surgery. Her neurovascular status in both lower extremities is intact. Pedal pulses 2+ bilaterally and fully sensate distally. No clinical evidence of DVT noted. Patient was cleared for discharge by physical therapy. On the day of discharge, the patient has been stable. Patient's vital signs have been stable throughout and she is afebrile at the time of discharge. She is being discharged home with home health. During her admission to the hospital she was also seen by Dr. Evans for management of medical problems. On the day of discharge Dr. Evans cleared her for discharge from a medical standpoint. Condition at discharge: improved and stable. Treatments and Procedures: Total knee arthroplasty, RIGHT knee; date of surgery 06/07/2018. Objective Vital signs: Temp Pulse Resp BP Pulse Ox 98.4 F 92 H 18 130/71 95 06/10/18 07:59 06/10/18 07:59 06/10/18 07:59 06/10/18 07:59 06/10/18 07:59 - *Routine Extremities Exam Comments: On examination of the right knee, Silverlon dressing is in place and is clean, dry and intact. There is no erythema or discharge. There is diffuse swelling and some tenderness over the knee as to be expected. Knee range of motion is 5- 70 of flexion. Distal pulses are 2+. Capillary refill is brisk. Sensation is intact to light touch throughout. Thigh and calf are soft and there is mild tenderness over the distal thigh. There is also 1+ edema of the left leg, ankle and foot. She demonstrates good range of foot and ankle movements. The quadriceps tendon is actively shraddha. She is not able to actively straight leg raise. Results Labs on day of discharge: Labs from last 24 hours 06/10/18 06/10/18 09:55 09:55 WBC 9.3 RBC 3.86 L Hgb 11.0 L Hct 34.0 L MCV 88.0 MCH 28.4 MCHC 32.3 RDW 13.3 Plt Count 430 H MPV 8.0 Neut % (Auto) 79.1 Lymph % (Auto) 12.0 Gilmer % (Auto) 5.4 Eos % (Auto) 3.1 Baso % (Auto) 0.3 Neut # (Auto) 7.3 Lymph # (Auto) 1.1 Gilmer # (Auto) 0.5 Eos # (Auto) 0.3 Baso # (Auto) 0.0 Sodium 129 L Potassium 3.7 Chloride 96 L Carbon Dioxide 26 Anion Gap 10.7 BUN 16 Creatinine 0.83 Estimated Creat Clear 80 Estimated GFR 69 Est GFR ( Amer) 83 Glucose 119 H Calcium 8.6 DS: Diagnosis - Discharge Diagnosis (1) Arthropathy of knee Status: Acute (2) Total knee replacement status Status: Acute (3) COPD (chronic obstructive pulmonary disease) Status: Acute (4) Hypertension Status: Acute (5) Hypothyroidism (acquired) Status: Acute Discharge Plan - Patient Discharge Instructions ACTIVITY: Continue current activity, Ambulate as tolerated DIET: regular diet Additional Instructions: Total knee arthroplasty total knee arthroplasty Patient Instructions: Knee Replacement, Surgical Site Infection - Follow up Plan Follow up with: James Anderson MD [Staff Physician] - Disposition: Home Health Service Home Medications: Home Medications Medication Instructions Recorded Confirmed Type fenofibrate 160 mg tablet 160 mg PO DAILY 09/10/17 06/07/18 History potassium chloride ER 10 mEq 10 meq PO DAILY 09/10/17 06/07/18 History tablet,extended release bupropion HCl SR 150 mg tablet,12 150 mg PO BID 04/21/18 06/07/18 History hr sustained-release spironolactone 25 mg tablet 25 mg PO DAILY 04/21/18 06/07/18 History umeclidinium 62.5 mcg-vilanterol 1 puff INHALATION DAILY 04/21/18 06/07/18 History 25 mcg/actuation powdr for inhalation varenicline 1 mg tablet 1 mg PO BID 04/21/18 06/07/18 History Amlodipine/Valsartan [Exforge 1 each PO DAILY 06/07/18 06/07/18 History 5-160 mg Tablet] Levothyroxine Sodium 0.1 mg PO DAILY 06/07/18 06/08/18 History [Levothyroxine 100mcg (0.1MG) Tab] Pramipexole Di-HCl [Mirapex] 0.125 mg PO HS 06/07/18 06/07/18 History Triamterene/Hydrochlorothiazid 1 each PO DAILY 06/07/18 06/07/18 History [Maxzide 37.5 mg-25 mg Tablet] Prescriptions/Medication Reconciliation: New Hydrocod/Acet 5/325 mg [Norton 5/325mg tablet] 1 - 2 tab PO Q4HP PRN #60 tab PRN Reason: Moderate To Severe Pain Continue fenofibrate 160 mg tablet 160 mg PO DAILY potassium chloride ER 10 mEq tablet,extended release 10 meq PO DAILY varenicline 1 mg tablet 1 mg PO BID umeclidinium 62.5 mcg-vilanterol 25 mcg/actuation powdr for inhalation 1 puff INHALATION DAILY spironolactone 25 mg tablet 25 mg PO DAILY bupropion HCl SR 150 mg tablet,12 hr sustained-release 150 mg PO BID Pramipexole Di-HCl [Mirapex] 0.125 mg PO HS Triamterene/Hydrochlorothiazid [Maxzide 37.5 mg-25 mg Tablet] 1 each PO DAILY Levothyroxine Sodium [Levothyroxine 100mcg (0.1MG) Tab] 0.1 mg PO DAILY Amlodipine/Valsartan [Exforge 5-160 mg Tablet] 1 each PO DAILY Discontinued Acetaminophen [Tylenol] 325 mg PO HS - Additional Information Additional Information: Our recommendations on discharge include physical therapy with weightbearing as tolerated and range of motion exercises of the right knee with emphasis on full extension and regaining flexion gradually. Patient will have home health and physical therapy at home. Note is made that the patient easily extends the knee to 0 degrees and flexes to 120 degrees while she was under anesthesia for the total knee arthroplasty with the wound closed. I have strongly advised her not to place any pillow behind the knee. But she can place a pillow under the ankle thus allowing gravity/weight of the leg help the knee into full extension. Patient was also advised to keep the leg elevated and ice the knee/use Polar pack on a regular basis. At this stage it is permissible to take a shower and allow the incision to get wet with shower water. After padding the area dry, the wound can be left open. The Silverlon dressing does not need changing for up to 7 days after surgery unless clinically indicated. Patient will follow up with me in the office in approximately 12-14 days for wound check and to cut the suture ends. Recommend 10 mg of Xarelto p.o. daily for 10 days for DVT prophylaxis. Please feel free to call our office at [phone] or via the hospital ion exchange operator [phone] for any orthopaedic questions or concerns.
== END 2018-06-10 14:00 | disposition home health service (06) ==
LOC: OR 06:03 → 2ND 11:37
PROVIDERS: ADMIT Orthopaedic Surgery; ATTEND Orthopaedic Surgery
CPT/HCPCS: 36415; 73560; 80048; 81001; 85025; 86850; 87086; 94761; 96374; 97110; 97116; 97161; C1765; C1776; J2405

== ENCOUNTER → 2018-07-22 09:03 | Outpatient (CLI) | payer MEDICARE, SELFPAY ==
--- NOTE | 2018-07-22 09:05 | XR_ITS ---
XR knee RT 2V HISTORY: ITS.REASON: sp RT total knee arthroplasty dos 06/07 ORDERING PHYSICIAN: James Anderson MD PATIENT AGE: 68 years COMPARISON: 06/07/2018 FINDINGS: Status post total knee arthroplasty with good alignment. There is a faint longitudinal lucency along the medial aspect of the proximal tibia which may be related to a nondisplaced fracture not significantly changed. IMPRESSION: 1. Status post total arthroplasty with good alignment. 2. Possible nondisplaced longitudinal fracture of the proximal tibia
== END ==
PROVIDERS: PCP Family Medicine; Visit Provider Orthopaedic Surgery
DX: Z96.659 Presence of unspecified artificial knee joint (principal); M25.562 Pain in left knee
CPT/HCPCS: 73560

== ENCOUNTER → 2018-10-18 14:23 | Outpatient (CLI) | payer MEDICARE, SELFPAY ==
--- NOTE | 2018-10-18 14:28 | CT_ITS ---
CT lung screening EXAM: CT LUNG LOW DOSE WO CONTRAST HISTORY: 46 pack year smoking history, asymptomatic for lung cancer ITS.REASON: H/O NICOTINE DEPENDENCE ORDERING PHYSICIAN: Trey Evans MD PATIENT AGE: 68 years COMPARISON: 06/25/2017 TECHNIQUE: The exam was performed on a GE Light Speed [address] scanner using 2.90 mGy CTDI. A low dose helical CT CHEST was performed on a multi-detector scanner. All CT scans at the facility use one or more dose reduction, viz: automated exposure control, ma/kV adjustment per patient size (including targeted exams where dose is matched to indication, i.e. head), or iterative reconstruction technique. The LDCT was performed in a facility that meets the criteria for the screening program. Data regarding this exam was submitted to ACR which is an approved registry. The order for this exam indicates that it came as a result of a lung cancer screening counseling shard decision-making visit that included all the elements required of such a visit including smoking cessation. The radiologist interpreting this exam meets the CMS criteria for the LDCT lung cancer screening program. The exam is reported using the Lung-RADS classification scale and reported to the ACR registry. NOTE: This study was performed for the specific purposes of lung cancer screening and is not an alternative to diagnostic chest CT. RADIATION DOSE: CTDI vol(CT dose Index-volume) = 2.90mG DLP (Dose Length Product) = 104.99 mGcm FINDINGS: Centrilobular is in the with COPD. 4 mm noncalcified nodule right upper lobe centrally unchanged series 4 #39. A 6 mm nodular opacity is present within the lingula. This is not readily apparent on the previous study but could be due to pulmonary fibrotic change. Six-month follow-up suggested. There are scattered pulmonary fibrotic changes and evidence of old granulomatous disease. Coronary artery calcifications are present and there are scattered small nodes in the axilla and mediastinum IMPRESSION: 1. Lung RADS Category: 3, probably benign, new 6 mm nodule within the lingula possibly due to fibrotic change. Recommend 6 month follow-up 2. Other findings: Centrilobular emphysema/COPD, coronary artery calcifications RECOMMENDATIONS: [address] follow-up with contrast
== END ==
PROVIDERS: PCP Family Medicine; Visit Provider Family Medicine
DX: Z12.2 Encounter for screening for malignant neoplasm of respiratory organs (principal); Z87.891 Personal history of nicotine dependence

== ENCOUNTER → 2018-12-13 09:36 | Outpatient (CLI) | payer MEDICARE, SELFPAY ==
--- NOTE | 2018-12-13 09:42 | CI_ITS ---
Cerebrovascular Exam Indications: 785.9 Bruit. 780.4 Vertigo. IMPRESSIONS 1. The bilateral vertebral arteries are patent with normal antegrade flow. 2. Study suggests less than 20% stenosis involving the right internal carotid artery and the left internal carotid artery. 3. Tortuous carotid arteries seen bilaterally. Carotid duplex study. Complete study and Doppler flow study including spectral analysis, color and tam scale imaging. Height: Height: 165.1cm. Height: 65in. Weight: Weight: 90.7kg. Weight: 199.6lb. Body mass index: BMI: 33.3kg/m^2. Body surface area: BSA: 2.07m^2. Location: Vascular laboratory. Patient status: Outpatient. Tables: Arterial flow: + +--------+--------+ Location V sys V ed + +--------+--------+ Right CCA - proximal 91.9cm/s 17.3cm/s + +--------+--------+ Right CCA - distal 58.9cm/s 20.4cm/s + +--------+--------+ Right ECA 67.7cm/s -------- + +--------+--------+ Right ICA - proximal 68.8cm/s 21.1cm/s + +--------+--------+ Right ICA - mid 56cm/s 20.1cm/s + +--------+--------+ Right ICA - distal 62.6cm/s 19.8cm/s + +--------+--------+ Right vertebral 31.4cm/s -------- + +--------+--------+ Left CCA - proximal 79.1cm/s 18.7cm/s + +--------+--------+ Left CCA - distal 61.4cm/s 16.2cm/s + +--------+--------+ Left ECA 70.2cm/s -------- + +--------+--------+ Left ICA - proximal 63.3cm/s 20.1cm/s + +--------+--------+ Left ICA - mid 58.7cm/s 22.3cm/s + +--------+--------+ Left ICA - distal 50.5cm/s 20.1cm/s + +--------+--------+ Left vertebral 29cm/s -------- + +--------+--------+ Velocity ratios: + + + + + + Right, V sys Right, V ed Left, V sys Left, V ed + + + + + + Max ICA/dist CCA 1.17 1.03 1.03 1.38 + + + + + + (Report amended ) Electronically signed by: Terell Rodgers [id number]
== END ==
PROVIDERS: PCP Family Medicine; Visit Provider Nurse Practitioner Family
DX: R42 Dizziness and giddiness (principal)
CPT/HCPCS: 93880

== ENCOUNTER → 2018-12-16 09:26 | Outpatient (CLI) | payer MEDICARE, SELFPAY ==
--- NOTE | 2018-12-16 09:30 | XR_ITS ---
XR DEXA axial skeleton HISTORY: ITS.REASON: OSTEOPENIA ORDERING PHYSICIAN: Trey Evans MD PATIENT AGE: 68 years COMPARISON: None FINDINGS: The BMD measured at the AP Spine L1-L4 is 0.929 g/cm squared with a T score of -2.1. This is considered Osteopenic according to the World Health Organization criteria. Fracture risk is Moderate. Treatment is advised. Left femoral neck density also has a T score -2.1 IMPRESSION: Osteopenia with moderate fracture risk. Treatment is advised. Suggest follow-up exam December 2020
== END ==
PROVIDERS: PCP Family Medicine; Visit Provider Family Medicine
DX: M85.89 Other specified disorders of bone density and structure, multiple sites (principal)
CPT/HCPCS: 77080

== ENCOUNTER → 2019-02-18 09:32 | Outpatient (CLI) | payer MEDICARE, SELFPAY | PROVIDERS: PCP Family Medicine; Visit Provider Family Medicine | DX: R06.02 Shortness of breath (principal) | CPT/HCPCS: 94060; 94726; 94729 ==

== ENCOUNTER → 2019-02-23 13:52 | Outpatient (CLI) | payer MEDICARE, SELFPAY | PROVIDERS: PCP Family Medicine; Visit Provider Family Medicine | DX: G47.30 Sleep apnea, unspecified (principal); I10 Essential (primary) hypertension; J44.9 Chronic obstructive pulmonary disease, unspecified; R06.02 Shortness of breath | CPT/HCPCS: 95806 ==

== ENCOUNTER → 2019-05-04 11:58 | Outpatient (CLI) | payer MEDICARE, SELFPAY ==
--- NOTE | 2019-05-04 12:05 | XR_ITS ---
PROCEDURE: XR KNEE LT 4V CLINICAL INDICATION: 4 views weightbearing Knee pain COMPARISON: [id number] KNEE-4 OR 5 VIEWS-LT from 03/15/2014 FINDINGS: Severe osteoarthritic changes are present involving the medial compartment with loss of joint space osteosclerosis and osteophyte formation. There are mild osteoarthritic changes of the lateral compartment and moderate osteoarthritic change of the patellofemoral joint. The osteoarthritis has progressed compared to the previous exam. Vascular calcifications are also noted. There are some mild dysplastic changes of the medial femoral condyle and medial tibial plateau. IMPRESSION: Severe osteoarthritis of the left knee which has progressed compared to the previous exam Dictated by: Terell Rodgers MD 05/04/2019 12:49 Electronically signed by Terell Rodgers MD in [place] 05/04/2019 12:50
== END ==
PROVIDERS: PCP Family Medicine; Visit Provider Orthopaedic Surgery
DX: M25.562 Pain in left knee (principal)
CPT/HCPCS: 73564

== ENCOUNTER → 2019-05-24 10:11 | Outpatient (CLI) | payer MEDICARE, SELFPAY ==
--- NOTE | 2019-05-24 10:21 | XR_ITS ---
PROCEDURE: XR KNEE RT 2V CLINICAL INDICATION: one year follow up right total knee arthroplasty COMPARISON: [id number] XR knee RT 4V from 04/21/2018 KNEELMRT XR knee RT 2V from 06/07/2018 KNEELMRT XR knee RT 2V from 07/22/2018 XR KNEE LT 4V from 05/04/2019 FINDINGS: No fracture or dislocation. No lytic or blastic change. There is normal mineralization. Status post total knee replacement. Good alignment. No evidence of orthopedic complications Other findings:Previously noted nondisplaced fracture proximal tibia no longer apparent IMPRESSION: Good alignment status post total knee replacement Dictated by: Terell Rodgers MD 05/24/2019 12:20 Electronically signed by Terell Rodgers MD in [place] 05/24/2019 12:20
--- NOTE | 2019-05-24 10:22 | XR_ITS ---
PROCEDURE: XR CHEST 2V CLINICAL HISTORY: HTN,COPD COPD COMPARISON: CXR1 CHEST-PORTABLE from 12/29/2014 CXR CHEST(2 VIEWS-NOT PORTABLE) from 06/22/[address] CHEST W/ CONTRAST from 06/25/2017 CXR2V XR chest 2V from 05/20/2018 FINDINGS: The cardiomediastinal silhouette and pulmonary vascularity are within normal limits. Hyperinflation with attenuation of the peripheral pulmonary vessels consistent with COPD. Increased markings are present in both lung bases and may represent pericardial fat pads but are more prominent than when compared to the previous exam. There is evidence of old granulomatous disease No acute bony abnormalities. IMPRESSION: COPD with old granulomatous disease and probable pericardial fat pads with no acute finding Dictated by: Terell Rodgers MD 05/24/2019 12:22 Electronically signed by Terell Rodgers MD in [place] 05/24/2019 12:22
[2019-05-24 10:57] LABS: Microscopic, Urine URINE MICROSCOPIC (MICROSCOPIC)
[2019-05-24 11:14] LABS: Appearance,Urine CLEAR (Clear); Bilirubin,Urine Negative (Negative); Blood, Urine Negative (Negative); Color,Urine YELLOW (Yellow); Glucose,Urine (UA) Negative (Negative); Ketones,Urine Negative (Negative); Leukocyte Esterase,Urine Negative (Negative); Nitrate,Urine Negative (Negative); PH,Urine 5.5 (5.0-8.5); Protein,Urine Negative (Negative); Urobilinogen,Urine 0.2 EU/dl (0.2)
[2019-05-24 11:15] LABS: Basophils # 0.1 K/mm3 (0-0.2); Basophils % 0.7 % (0.1-2.0); Eosinophils # 0.6 K/mm3 (0.0-0.4); Eosinophils % 6.1 % (0.1-12.0); Hematocrit 39.9 % (37.0-47.0); Hemoglobin 11.9 g/dL (12.2-16.2); Lymphocytes # 1.9 K/mm3 (0.7-4.5); Lymphocytes % 21.4 % (10-50); Mean Corpuscular HGB Conc 29.9 g/dL (31.8-35.4); Mean Corpuscular Hemoglobin 26.7 pg (27.0-31.2); Mean Corpuscular Volume 89.2 fl (81-99); Mean Platelet Volume 7.7 fl (7.4-10.4); Monocytes # 0.5 K/mm3 (0.1-1.0); Monocytes % 5.8 % (1.7-9.3); Platelet Count 452 K/mm3 (142-424); Red Blood Count 4.47 M/mm3 (4.20-5.40); Red Cell Distribution Width 14.7 % (11.5-17.5); White Blood Count 9.1 K/mm3 (4.8-10.8)
[2019-05-24 11:56] LABS: Bacteria,Urine Trace /lpf
[2019-05-24 12:09] LABS: Alanine Aminotransferase 17 U/L (12-78); Albumin Level 3.8 gm/dL (3.4-5.0); Albumin/Globulin Ratio 1.2 (1.1-1.8); Alkaline Phosphatase 90 U/L (46-116); Anion Gap 12.3 mEq/L (5-15); Aspartate Amino Transferase 16 U/L (15-37); Bilirubin,Total 0.2 mg/dL (0.2-1.0); Blood Urea Nitrogen 17 mg/dL (7-18); Calcium 8.9 mg/dL (8.5-10.1); Carbon Dioxide 28 mmol/L (21.0-32.0); Chloride 102 mmol/L (98-107); Creatinine,Serum 1.11 mg/dL (0.55-1.02); Estimated Glomerular Filt Rate 49 ml/min (>60); GFR (African American) 60 ML/MIN (>60); Globulin 3.2 gm/dl (1.3-3.2); Glucose 87 mg/dL (74-106); Potassium 4.3 mmoL/L (3.5-5.1); Sodium 138 mmol/L (136-145)
--- NOTE | 2019-05-24 15:56 | SW/DCPLANNER ---
I received referral for Carie in Dr Anderson office regarding upcoming total knee surgery for this patient. I spoke with patient this afternoon via phone. Patient had a total knee in June of 2018 and discharged home with DME and home health through [facility]. Patient stated that she was very pleased with [facility] services. Patients plan is to discharge home after total knee surgery with [facility] again and she has all DME at home. I will follow up with patient on day of surgery 06/06/19.
== END ==
PROVIDERS: PCP Family Medicine; Visit Provider Orthopaedic Surgery
DX: Z01.818 Encounter for other preprocedural examination; Z96.651 Presence of right artificial knee joint
CPT/HCPCS: 36415; 71046; 73560; 80053; 81001; 85025

== ENCOUNTER → 2019-06-04 09:00 | Outpatient (CLI) | payer MEDICARE, SELFPAY | PROVIDERS: Visit Provider Orthopaedic Surgery | DX: Z01.818 Encounter for other preprocedural examination (principal) | CPT/HCPCS: 36415; 86850 ==

== ENCOUNTER 2019-06-06 08:09 | Observation (INO) ==
--- NOTE | 2019-06-06 13:53 | Progress Note ---
[facility] Anesthesia Checklist - Structural Data Admitted From: Home Planned Operative Procedure/s: l total knee Consent for Planned Operative Procedure(s) Verified: Yes - Additional verifications Anesthesia Reactions: No Hx Blood Transfusions: No Blood Transfusion Reaction: No - Airway Assessment C-Spine Mobility Assessed: Yes TMJ Mobility Assessed: Yes Dentition: Dentures-good fit - Neurological Assessment Level of Consciousness: Awake, Alert, Appropriate - Anesthesia Plan Anesthesia Risk discussed: Yes Anesthesia Plan: Verified ASA Class: II Anesthesia Type: General [facility] History I have reviewed the patient's past medical history: Yes Medical History: Reports:: Chronic Obstructive Pulmonary Disease (COPD), Hyperlipidemia, Hypertension Denies:: Cancer, Diabetes Mellitus Type 1, Diabetes Mellitus Type 2, Internal Pacemaker, MRSA, Seizures *Have you ever received a pneumonia vaccine?: Yes *Have you received a flu vaccine this season?: No Other Medical History: Denies: Blood Transfusion Reaction Anesthesia experience/problems:: none Laterality Cases: Right: Breast Biopsy, Lumpectomy, Total Knee Replacement Other Surgeries: Yes: Cholecystectomy, Other. No: Pacemaker Amputation: No Fractures: No - *Social History Educational Level: Attended College Smoking Status: Former smoker Tobacco Type: cigarettes # Packs/Day (cigarettes): 1 Alcohol Intake: never Substance Use Type: denies use *Occupational Status:: retired Housing: house Household Members: none *Travel in the last 8 weeks: None Family Hx:: Hypertension, Coronary Artery Disease
--- NOTE | 2019-06-06 13:55 | Progress Note ---
[facility] Anesthesia Record Part I Intake, IV Amount: 1,800 Estimated blood loss (mL): 50 Urine output (mL): 100 Blood Pressure: 136/76 SaO2: 90 Pulse Rate: 82 Respiratory Rate: 12 Temperature: 97 F Patient is:: Awake, Stable Stable to PACU at:: 13:50
--- NOTE | 2019-06-06 13:56 | Progress Note ---
[facility] Anesthesia Record Part II Discharge Time: 14:20 Destination: floor PACU nurse assessment reviewed?: Yes Patient Condition:: Good Anesthesia Complications:: None Swallowing reflex intact?: Yes Cyanosis?: No
--- NOTE | 2019-06-06 14:18 | Operative Note ---
Date of procedure: 06/06/19 Pre-op Diagnosis:: Advanced degenerative arthritis, left knee Post-op Diagnosis:: Same Procedure performed:: Cemented primary total knee arthroplasty, left knee Surgeon:: James Anderson MD Pilot Manager(s):: Natalie Fenton PNEUMATIC SYSTEM CONVEYOR OPERATOR:: Ignacio Graham Anesthesia: GETA, regional (Femoral and sciatic nerve blocks) Estimated blood loss (mL): 50 Clinical Note:: Patient is a 68-year-old female with end-stage tricompartmental osteoarthritis and [id number] changes over the medial compartment with a progressive varus deformity and flexion contracture of her left knee presented with unremitting severe pain not relieved by conservative management. The pain is advanced to the point that it is becoming a hazard for the patient with risk of falling and injuring herself. Total knee arthroplasty is indicated to relieve the pain, improve function, reduce the risk of falls and improve quality of life. Patient previously had a successful right total knee arthroplasty about a year ago. Please refer to my office note for full details. Operative findings:: As noted on the preoperative evaluation, the knee joint had a fixed flexion of 15 and 10 degrees of fixed varus deformity. As seen on the x-rays, the medial and patellofemoral compartments showed advanced degenerative changes with [id number] appearance. The menisci and cruciate ligaments were significantly degenerate. There was extensive osteophyte formation over all 3 compartments. Bone quality is satisfactory. Operative note:: On the day of the surgery the patient and her sister were seen in the preoperative area. I have reviewed the clinical and x-ray findings with the patient. I have again discussed the diagnosis, natural history and management options in detail including both nonsurgical and surgical. She has end-stage degenerative arthritis of her LEFT knee and has failed to respond satisfactorily to conservative management so far and has opted for a LEFT total knee arthroplasty. Her knee joint give out and she is at risk of falls resulting in fractures. We again discussed the details of the procedure, risks and benefits and alternatives in detail. The complications discussed include but are not limited to infection, injury to nerves and blood vessels including injury to popliteal artery, injury to tendons and ligaments, DVT and PE, fat embolism, intraoperative fracture, limb length inequality, patella fracture, patellofemoral instability, patellar clunk syndrome, quadriceps and patellar tendon rupture, implant failure, component loosening, periprosthetic femur and tibia fractures, stiffness (arthrofibrosis), limp, incomplete relief of pain, incomplete functional recovery, likely need for further surgery in future including revision and anesthetic complications including heart attack, stroke and even . We discussed how any of these events can be devastating. We have discussed nonsurgical alternatives as well. Patient understands wishes to proceed with a LEFT total knee arthroplasty and I believe that she is fully informed as to the risks, benefits, and alternatives including nonsurgical alternatives. We also discussed the postoperative course including the rehab and physical therapy required. She lives with her family and is planning to go back home with home health after surgery. A physical examination was performed and documented. Patient understood the risks, agreed to proceed with surgery, signed the consent form and no guarantees or assurances were given or implied. The patient was then brought to the operating room and a general anesthesia was administered by the towboat captain. Prior to that patient had femoral and sciatic nerve blocks in the pre-anesthetic area. The patient was then positioned supine on the operating table. All the bony prominences were appropriately padded. A well-padded tourniquet cuff was placed high over the upper thigh. The LEFT knee was prepped with isopropyl alcohol followed by chlorhexidine and draped in the usual sterile fashion. Prior to this, patient had used Hibiclens for a total of 5 days prior to the surgery and also used topical intranasal Bactroban. The entire operative team wore isolation suits and the Operating Room traffic was controlled. The skin incision was marked for a medial parapatellar approach to the knee joint. The entire operative site was sealed off with Ioban drape. A preprocedure timeout was performed as per hospital protocol. At the start of the procedure administration of prophylactic antibiotics (IV Ancef and vancomycin) was confirmed with the towboat captain. Patient also received 1 g of IV tranexamic acid before starting the procedure and one more gram after the procedure to reduce the postoperative blood loss. A preprocedure timeout was performed as per hospital protocol. The limb was exsanguinated with Esmarch bandage, the knee joint flexed beyond 90 and the tourniquet cuff was inflated to 300 mmHg. Please see the nursing records for total tourniquet time. I then made a midline incision utilizing a #10 scalpel blade. Electrocautery was used to seal off subcutaneous vessels. The extensor mechanism was exposed, marked and a curvilinear incision made for a medial parapatellar approach using the scalpel blade. The patella was everted carefully and the fat pad resected just enough to allow sufficient visualization of the proximal tibia. The anterior cruciate ligament and the anterior aspects of both menisci were resected. An appropriate medial release was performed with the knife and Ania elevator. A step drill was used to open the intramedullary canal and the IM distal femoral cutting jig was placed. The jig was pinned into position and the intramedullary maura removed. The distal cut was made at 5 degrees of valgus and the sizing jig placed. This sized best at a size 4 femur for the [employer] system. We then placed the 4-in-1 cutting block in position in 3 degrees of external rotation. A cross pin was added for stabilizing the block and the bina wing utilized to ensure notching of the femur would not occur. The anterior cut was made followed by the posterior cut then the posterior chamfer and finally the anterior chamfer cuts in that order. Soft tissues were protected throughout this with careful retraction using the Z retractors. We checked for trueness of cuts and then moved on to the tibia. The tibial extra medullary guide was placed and aligned from the central aspect of the plateau between the spines down to the second metatarsal base. We pinned cutting block in position for minimal resection of the tibia from the medial side which was more severely involved with arthritis, checked alignment, protected the soft tissues with appropriate retractors and resected with the Willie saw. The resected tibial plateau articular surface was removed and sized it at a size 3. We ensured correctness of the cut and correct posterior slope. We then checked the extension and flexion gaps and found them to be equal and well balanced. We trialed the femur and the tibia with trial components and a trial insert and ranged the knee to ensure full flexion and extension and checked for ligamentous stability. We then everted the patella and reamed for a 29 mm central pegged button. We had lateralized the femur and medialized the patella intentionally. We placed trial components and noted that a 11 mm thick polyethylene to fit best. This gave us a ligamentously stable knee and allowed full extension. We allowed this to be free-floating and then checked it and made sure it was in appropriate position in relation to the tibial tubercle. We also used tibial alignment maura to check for satisfactory position of the base plate and markings were made with electrocautery on the proximal tibia. We then elected to proceed with the box cut for a posterior stabilized femoral component. We placed the cutting jig for the box cut in the femur, drilled and then used the box osteotome to create the channel. We then trialed with the posterior stabilized polyethylene and found a size 11 to fit best. This gave us appropriate range of motion with proper ligamentous stability. We then removed the trial components and positioned and pinned the base plate to the top of the tibia and punched the groove for the V shaped stem. We used a small trocar tipped pin drill holes into the subchondral sclerotic bone of the medial tibia to augment cement fixation. We then copiously irrigated with the normal saline pulse lavage, and dried the cut surfaces. We then cemented the tibial tray, the femoral component, and placed a 11 mm trial insert and brought the knee into extension. We then cemented the patella button. We allowed the cement to set and then inspected the knee joint and removed excess cement with an osteotome. We then placed the size 11 definitive polyethylene tibial insert ensuring that the dovetails fit appropriately and that the polyethylene was down and seated into the tibial tray properly. The knee joint was put through range of motion and noted the patella to be tracking appropriately with no thumb technique. The knee joint was then soaked with dilute Betadine (0.35 percent) solution for 3 minutes followed by suctioning of the solution and pulsatile lavage with the 1 L of normal saline. The tourniquet was deflated and hemostasis obtained with diathermy cautery. The knee joint was again thoroughly irrigated with pulse lavage and good hemostasis was confirmed before proceeding with wound closure. The capsule/extensor mechanism was closed with #1 Stratafix PDS running suture ensuring a watertight closure. Next the subcutaneous tissue was closed with 2-0 Stratafix PDS running suture. The skin was closed with subcuticular 3-0 Monocryl Stratafix suture and Dermabond Prineo Skin Closure System. Sterile dressings were applied consisting of 4 x 4 gauze, ABDs, soft roll and secured in place with Addi wrap. No drains were placed. The patient was then transferred from the operating table onto the bed. The tibialis posterior and dorsalis pedis pulses were noted 2+ with good capillary refill in the foot. The patient was then reversed from the anesthetic and transported to the postoperative recovery area in a stable condition. Patient tolerated the procedure well and there were no immediate complications. The swab, needle and instrument counts were correct according to the scrub team at the end of the procedure. Portable x-rays of the knee were obtained in the recovery area and showed the components to be well fixed in a satisfactory alignment and position without any complications. The knee was placed in a knee immobilizer which should be continued when standing and walking, until patient regains full quadriceps control. Postoperatively, institute and continue standard precautions and physical therapy and edema management for a standard primary total knee arthroplasty starting on postoperative day 1. Patient can be mobilized full weightbearing as tolerated. Implants: [employer] Katelin II nonporous LEFT tibial base plate-size 3 [employer] Katelin II Biconvex patellar component-29 mm [employer] posterior stabilized Legion Oxinium femoral component, size 4 LEFT [employer] Legion PS XLPE high flexion articular insert- size 3-4 x 11 mm Palacos bone cement with gentamicin was used. Industry inside sales account representative: Moshe Sánchez ([employer] [facility]) Condition: stable Disposition: PACU Specimens:: None Complications:: None
--- NOTE | 2019-06-06 14:28 | Pharmacy Consult Notes ---
[facility] Pharmacy VTE Monitoring - Patient Demographics Admission date: 06/06/19 Report Date: 06/06/19 Time: 14:28 Allergies/Adverse Reactions: Patient Allergies No Known Allergies Allergy (Verified 06/06/19 08:30) Height: 1.65 m Weight: 90.718 kg - Prophylaxis VTE Prophylaxis Ordered?: Yes Types of VTE Prophylaxis: IPCS Thigh High, Pharmacological Pharmacologic Type: Other (XARELTO) - VTE Diagnosis Confirmed Treatment or plan recommended: Continue Current Treatment
[2019-06-07 06:20] LABS: Basophils % 0.1 % (0.1-2.0); Eosinophils % 0.1 % (0.1-12.0); Hematocrit 32.4 % (37.0-47.0); Lymphocytes % 5.7 % (10-50); Mean Corpuscular HGB Conc 30.9 g/dL (31.8-35.4); Mean Corpuscular Volume 90.4 fl (81-99); Mean Platelet Volume 7.6 fl (7.4-10.4); Monocytes # 0.7 K/mm3 (0.1-1.0); Monocytes % 4.2 % (1.7-9.3); Neutrophils % 89.8 % (37.0-80.0); Platelet Count 347 K/mm3 (142-424); Red Blood Count 3.58 M/mm3 (4.20-5.40); Red Cell Distribution Width 14.1 % (11.5-17.5); White Blood Count 16.7 K/mm3 (4.8-10.8)
[2019-06-07 06:31] LABS: Anion Gap 11.8 mEq/L (5-15); Calcium 8.1 mg/dL (8.5-10.1)
[2019-06-07 08:00] LABS: Lymphocytes % 4 % (10-50); Monocytes % 5 % (2-9); Neutrophils % 91 % (42-76); Total Cells Counted 100
--- NOTE | 2019-06-07 16:45 | Discharge Summary ---
General - General Admission date:: 06/06/19 Discharge date: 06/07/19 HPI HPI: Patient is a 68-year-old female with advanced degenerative joint disease of the left knee who is admitted to the hospital electively following an uncomplicated primary total knee arthroplasty on 06/06/2019. Prior to surgery patient had long-standing pain, stiffness and disability secondary to advanced degenerative arthritis in her left knee. She has not responded well to conservative management including NSAID, Tylenol, and intra-articular injections in the past. She is using assistive walking devices. Total knee arthroplasty is indicated to reduce the risk of falls, improve her pain and mobility and quality of life. The surgical and nonsurgical alternatives were discussed in detail with the patient as well as the risks and benefits of the surgery. She previously had a successful right total knee arthroplasty about a year ago. She is fairly healthy and has a history of hypertension, COPD, hypothyroidism and osteoarthritis. Hospital Course Hospital Course: Patient underwent an uncomplicated straightforward primary left total knee arthroplasty on 06/06/2019. Following surgery patient was admitted to hospital for observation and progressed well without any complications. Her postoperative check x-ray was satisfactory with good alignment and fixation of the components. She progressed rapidly with physical therapy and was able to mobilize using a walker. After 24 hours of hospital stay for observation, patient was cleared by physical therapy for discharge and she was duly discharged to home with home health on 06/07/19. At the time of discharge she has not yet regained good quadriceps control but is just about able to actively straight leg raise. She has minimal pain and her pain is well controlled with as needed oral medication. The dressings were changed and the the incision is healthy and healing well. No signs of any erythema, induration or discharge noted. Patient was started on Xarelto 10 mg daily for DVT prophylaxis after surgery. Her neurovascular status in both lower extremities is intact. Pedal pulses 2+ bilaterally and fully sensate distally. No clinical evidence of DVT noted. Patient was cleared for discharge by physical therapy. On the day of discharge, the patient has been stable. Patient's vital signs have been stable throughout and she is afebrile at the time of discharge. She is being discharged home with family/home health. Condition at discharge: improved and stable. Treatments and Procedures: Total knee arthroplasty, left knee; date of surgery 06/06/2019. Objective Vital signs: Temp Pulse Resp BP Pulse Ox 97.9 F 82 17 111/65 95 06/07/19 12:00 06/07/19 13:56 06/07/19 12:00 06/07/19 12:00 06/07/19 12:00 no acute distress, obese - *Routine HEENT Exam Head: Present: normocephalic, atraumatic Eye: Present: EOMI ENT: Present: mucous membranes moist - *Routine Neck Exam Present: supple, full ROM, trachea midline. Absent: lymphadenopathy - *Routine Respiratory Exam Present: CTA bilaterally - *Routine Cardiovascular Exam Present: RRR, Normal S1, Normal S2 - *Routine Abdominal Exam Present: soft, normoactive bowel sounds. Absent: tenderness - *Routine Extremities Exam Comments: On examination of the lower extremities the limb lengths are equal. On examination of the left knee the incision is clean, dry and healthy. No signs of infection or other complications are noted. There is minimal swelling and ecchymosis around the knee as to be expected at this stage. Knee range of movements is 5 to 80 degrees of flexion. She has not yet regained full quadriceps activation but is just about able to actively straight leg raise. Calf is soft and nontender. Distal pulses are 2+. Capillary refill is brisk. Sensation is intact to light touch throughout. She is actively moving the ankle, foot and the toes. No signs of DVT noted. - Routine Back/Spine/Pelvis Exam Back/Spine: Absent: paraspinal tenderness, vertebral tenderness - *Routine Skin Exam Present: intact, warm - *Routine Neurological Exam Present: alert, oriented X3, CN II-XII intact, normal tone - Routine Psychiatric Exam Present: normal affect, cooperative Results Labs on day of discharge: Labs from last 24 hours 06/07/19 06/07/19 05:43 05:43 WBC 16.7 H RBC 3.58 L Hgb 10.0 L Hct 32.4 L MCV 90.4 MCH 27.9 MCHC 30.9 L RDW 14.1 Plt Count 347 MPV 7.6 Neut % (Auto) 89.8 H Lymph % (Auto) 5.7 L Wallace % (Auto) 4.2 Eos % (Auto) 0.1 Baso % (Auto) 0.1 Neut # (Auto) 15.0 H Lymph # (Auto) 1.0 Wallace # (Auto) 0.7 Eos # (Auto) 0.0 Baso # (Auto) 0.0 Total Counted 100 Neutrophils % (Manual) 91 H Lymphocytes % (Manual) 4 L Monocytes % (Manual) 5 Platelet Estimate Normal Sodium 135 L Potassium 4.8 Chloride 102 Carbon Dioxide 26 Anion Gap 11.8 BUN 19 H Creatinine 1.16 H Estimated Creat Clear 71 Estimated GFR 47 L Est GFR ( Amer) 57 L Glucose 136 H Calcium 8.1 L DS: Diagnosis - Discharge Diagnosis (1) Arthropathy of knee Status: Acute (2) Total knee replacement status Status: Acute (3) COPD (chronic obstructive pulmonary disease) Status: Acute (4) Hypertension Status: Acute (5) Hypothyroidism (acquired) Status: Acute Discharge Plan - Patient Discharge Instructions ACTIVITY: Continue current activity, Ambulate as tolerated Patient Instructions: DI for Knee Replacement, DI for Surgical Site Infection - Follow up Plan Follow up with: James Anderson MD [Staff Physician] - 06/21/19 10:45 am Disposition: Home Health Service Home Medications: Home Medications Medication Instructions Recorded Confirmed Type fenofibrate 160 mg tablet 160 mg PO DAILY 09/10/17 06/06/19 History potassium chloride ER 10 mEq 10 meq PO DAILY 09/10/17 06/06/19 History tablet,extended release bupropion HCl SR 150 mg tablet,12 150 mg PO BID 04/21/18 06/06/19 History hr sustained-release spironolactone 25 mg tablet 25 mg PO DAILY 04/21/18 06/06/19 History umeclidinium 62.5 mcg-vilanterol 1 puff IH DAILY 04/21/18 06/06/19 History 25 mcg/actuation powdr for inhalation Amlodipine/Valsartan [Exforge 1 each PO DAILY 06/07/18 06/06/19 History 5-160 mg Tablet] Pramipexole Di-HCl [Mirapex] 0.125 mg PO HS 06/07/18 06/06/19 History Triamterene/Hydrochlorothiazid 1 each PO DAILY 06/07/18 06/06/19 History [Maxzide 37.5 mg-25 mg Tablet] Ferrous Sulfate 325 mg PO BID 06/06/19 06/06/19 History Levothyroxine Sodium 112 mcg PO DAILY 06/06/19 06/06/19 History [Levothyroxine 112mcg (0.112mg) Tab] Temazepam [Restoril 15mg capsule] 15 mg PO HSP PRN 06/06/19 06/06/19 History Hydrocod/Acet 5/325 mg [Mineral 1 - 2 tab PO Q4HP PRN #60 tab 06/07/19 Rx 5/325mg tablet] Rivaroxaban [Xarelto 10mg tablet] 10 mg PO QPMWM #14 tab 06/07/19 Rx Sennosides [Senokot 8.6mg tablet] 8.6 mg PO BIDP PRN #20 tab 06/07/19 Rx Prescriptions/Medication Reconciliation: New Sennosides [Senokot 8.6mg tablet] 8.6 mg PO BIDP PRN #20 tab PRN Reason: Constipation Rivaroxaban [Xarelto 10mg tablet] 10 mg PO QPMWM #14 tab Hydrocod/Acet 5/325 mg [Mineral 5/325mg tablet] 1 - 2 tab PO Q4HP PRN #60 tab PRN Reason: Moderate To Severe Pain Continued fenofibrate 160 mg tablet 160 mg PO DAILY potassium chloride ER 10 mEq tablet,extended release 10 meq PO DAILY umeclidinium 62.5 mcg-vilanterol 25 mcg/actuation powdr for inhalation 1 puff IH DAILY spironolactone 25 mg tablet 25 mg PO DAILY bupropion HCl SR 150 mg tablet,12 hr sustained-release 150 mg PO BID Pramipexole Di-HCl [Mirapex] 0.125 mg PO HS Triamterene/Hydrochlorothiazid [Maxzide 37.5 mg-25 mg Tablet] 1 each PO DAILY Amlodipine/Valsartan [Exforge 5-160 mg Tablet] 1 each PO DAILY Ferrous Sulfate 325 mg PO BID Temazepam [Restoril 15mg capsule] 15 mg PO HSP PRN PRN Reason: Sleep Levothyroxine Sodium [Levothyroxine 112mcg (0.112mg) Tab] 112 mcg PO DAILY Discontinued Mupirocin Calcium [Mupirocin 2% Cream 15gm] 1 applic TOPICAL BID Chlorhexidine Gluconate 1 applic TOPICAL Q5M - Problem Reconciliation Problems Reviewed?: Yes - Additional Information Additional Information: Our recommendations on discharge include physical therapy with weightbearing as tolerated and range of motion exercises of the left knee with emphasis on full extension and regaining flexion gradually. Patient will have home health/physical therapy and has appropriate arrangements in place for this. Note is made that the patient easily extends the knee to 0 degrees and flexes to 140 degrees while she was under anesthesia for the total knee arthroplasty with the wound closed. I have strongly advised her not to place any pillow behind the knee. But she can place a pillow under the ankle thus allowing gravity/weight of the leg help the knee into full extension. Patient was also advised to keep the leg elevated and ice the knee/use Polar pack on a regular basis. At this stage it is permissible to take a shower and allow the incision to get wet with shower water. After padding the area dry, the wound can be left open. Routine application of occlusive dressings is not needed unless clinically indicated. Patient has Dermabond Prineo dressing in place. Patient will follow up with me in the office in approximately 2 weeks for wound check and removal of the Dermabond Prineo dressing. Recommend 10 mg of Xarelto p.o. daily for 2 weeks for DVT prophylaxis. Please feel free to call our office at [phone] or via the hospital dielectric embossing machine operator [phone] for any orthopaedic questions or concerns.
--- OUTSIDE RECORDS SUMMARY | 2019-06-08 14:30 | External Medical Summary | Continuity of Care Document ---
:1950 Author Organization [facility] Address [address] [facility] [address] JANET Langston Phone Care Team Providers Name Role Phone Rob Evans Primary Care Provider Luis E Anderson Attending Provider Allergies, Adverse Reactions, Alerts No known allergies. Medications Medication Status Dose Units Route Sig Qty Days Start End Instruct ions Date Date Fenofibrate Active 160 MG Oral Daily September 10, 2017 1:50pm Potassium Active 10 MEQ Oral Daily September 1:51pm Spironolactone Active 25 MG Oral Daily April 21, 2018 9:21am Bupropion Hcl Active 150 MG Oral Twice a April 9:22am Umeclidinium Active 1 PUFF INHALATIO Daily April Brm/Vilanterol N 2017 9:22am Amlodipine/Vals Active 1 EACH Oral Daily May danika 2017 2:42pm Pramipexole Active 0.125 MG Oral At May Di-Hcl bedtime , nightly 2017 2:42pm Triamterene/Hyd Active 1 EACH Oral Daily May rochlorothiazid 2017 2:42pm Ferrous Sulfate Active 325 MG Oral Twice a May 8:32am Levothyroxine Active 112 MCG Oral Daily May Sodium 2018 10:49am Temazepam Active 15 MG Oral At May bedtime , nightly 2018 as 10:49am needed Hydrocod/Acet Active 1 - 2 TAB Oral Every 4 60 May 5/325 Mg hours , 2018 needed 4:26pm Rivaroxaban Active 10 MG Oral Every 14 May evening , 2018 meal 4:26pm Sennosides Active 8.6 MG Oral Twice a May as 2018 4:26pm Problems Active Problems Medical Problem Onset Date Status Hypothyroidism (acquired) Active Total knee replacement status Active Arthropathy of knee Active COPD (chronic obstructive pulmonary disease) Active Knee pain Active Hypertension Active Procedures Procedure Date Performed Status XR knee LT 2V June 06, 2019 completed Total Knee Arthroplasty (Left) June 06, 2019 10:51am co mpleted June 06, 2019 9:30am completed June 06, 2019 9:30am completed XR knee LT 4V May 04, 2019 completed XR knee RT 2V May 24, 2019 completed XR chest 2V May 24, 2019 completed Relevant Diagnostic Tests and/or Laboratory Data Laboratory Results Test Date/Time Result Interpretation Reference Result Perfo rming Range Comment Site White Blood Count May 9.1 K/mm3 4.8-10.[address] 2018 10:55am [place] [address] White Blood Count May 16.7 K/mm3 4.8-10.[address] 2018 5:43am [place] [address] Red Blood Count May 4.47 M/mm3 4.20-5.[address] 2018 10:55am [place] [address] Red Blood Count May 3.58 M/mm3 4.20-5.[address] 2018 5:43am [place] [address] Hemoglobin May 11.9 g/dL 12.2-16.[address] 2018 10:55am [place] [address] Hemoglobin May 10.0 g/dL 12.2-16.[address] 2018 5:43am [place] [address] Hematocrit May 39.9 % 37.0-47.[address] 2018 10:55am [place] [address] Hematocrit May 32.4 % 37.0-47.0 [facility], [address] [place] [address] E 2018 5:43am [place] [address] Mean Corpuscular October 89.2 fl 81-99 [facility], [address] [place] [address] E Volume 2018 10:55am [place] [address] Mean Corpuscular October 90.4 fl 81-99 [facility], [address] [place] [address] E Volume 2018 5:43am [place] [address] Mean Corpuscular October 26.7 pg 27.0-31.2 [facility], [address] [place] [address] E Hemoglobin 2018 10:55am [place] [address] Mean Corpuscular October 27.9 pg 27.0-31.2 [facility], [address] [place] [address] E Hemoglobin 2018 5:43am [place] [address] Mean Corpuscular October 29.9 g/dL 31.8-35.4 [facility], [address] [place] [address] E Hemoglobin Concent 2018 10:55am [place] [address] Mean Corpuscular October 30.9 g/dL 31.8-35.4 [facility], [address] [place] [address] E Hemoglobin Concent 2018 5:43am [place] [address] Red Cell October 14.7 % 11.5-17.5 [facility], [address] [place] [address] E Distribution Width 2018 10:55am [place] [address] Red Cell October 14.1 % 11.5-17.5 [facility], [address] [place] [address] E Distribution Width 2018 5:43am [place] [address] Platelet Count May 452 K/mm3 142-424 [facility], [address] [place] [address] E 2018 10:55am [place] [address] Platelet Count May 347 K/mm3 142-424 [facility], [address] [place] [address] E 2018 5:43am [place] [address] Mean Platelet October 7.7 fl 7.4-10.4 [facility], [address] [place] [address] E Volume 2018 10:55am [place] [address] Mean Platelet May 7.6 fl 7.4-10.4 [facility], [address] [place] [address] E Volume 2018 5:43am [place] [address] Neutrophils (%) May 66.0 % 37.0-80.0 [facility], [address] [place] [address] E (Auto) 2018 10:55am [place] [address] Neutrophils (%) May 89.8 % 37.0-80.0 [facility], [address] [place] [address] E (Auto) 2018 5:43am [place] [address] Lymphocytes (%) May 21.4 % 50 [facility], [address] [place] [address] E (Auto) 2018 10:55am [place] [address] Lymphocytes (%) May 5.7 % 50 [facility], [address] [place] [address] E (Auto) 2018 5:43am [place] [address] Monocytes (%) May 5.8 % 1.7-9.3 [facility], [address] [place] [address] E (Auto) 2018 10:55am [place] [address] Monocytes (%) May 4.2 % 1.7-9.3 [facility], [address] [place] [address] E (Auto) 2018 5:43am [place] [address] Eosinophils (%) May 6.1 % 0.1-12.0 [facility], [address] [place] [address] E (Auto) 2018 10:55am [place] [address] Eosinophils (%) May 0.1 % 0.1-12.0 [facility], [address] [place] [address] E (Auto) 2018 5:43am [place] [address] Basophils (%) May 0.7 % 0.1-2.0 [facility], [address] [place] [address] E (Auto) 2018 10:55am [place] [address] Basophils (%) May 0.1 % 0.1-2.0 [facility], [address] [place] [address] E (Auto) 2018 5:43am [place] [address] Neutrophils # October 6.0 K/mm3 1.8-7.8 [facility], [address] [place] [address] E (Auto) 2018 10:55am [place] [address] Neutrophils # May 15.0 K/mm3 1.8-7.8 [facility], [address] [place] [address] E (Auto) 2018 5:43am [place] [address] Lymphocytes # May 1.9 K/mm3 0.7-4.5 [facility], [address] [place] [address] E (Auto) 2018 10:55am [place] [address] Lymphocytes # May 1.0 K/mm3 0.7-4.5 [facility], [address] [place] [address] E (Auto) 2018 5:43am [place] [address] Monocytes # (Auto) October 0.5 K/mm3 0.1-1.0 [facility], [address] [place] [address] E 2018 10:55am [place] [address] Monocytes # (Auto) October 0.7 K/mm3 0.1-1.0 [facility], [address] [place] [address] E 2018 5:43am [place] [address] Eosinophils # May 0.6 K/mm3 0.0-0.4 [facility], [address] [place] [address] E (Auto) 2018 10:55am [place] [address] Eosinophils # May 0.0 K/mm3 0.0-0.4 [facility], [address] [place] [address] E (Auto) 2018 5:43am [place] [address] Basophils # (Auto) October 0.1 K/mm3 0-0.2 [facility], [address] [place] [address] E 2018 10:55am [place] [address] Basophils # (Auto) October 0.0 K/mm3 0-0.2 [facility], [address] [place] [address] E 2018 5:43am [place] [address] Differential Total May 100 H [facility], [address] [place] [address] Cells Counted 2018 5:43am [place] [address] Neutrophils % May 91 % 42-76 [facility], [address] [place] [address] (Manual) 2018 5:43am [place] [address] Lymphocytes % October 4 % 10-50 [facility], [address] [place] [address] E (Manual) 2018 5:43am [place]ET [address] Monocytes % October 5 % 2-9 [facility], [address] [place] [address] E (Manual) 2018 5:43am [place]ET [address] Platelet Estimate October Normal Blood [facility], [address] [place] [address] 36 E 2018 5:43am [place] [address] Urine Color October Yellow Yellow [facility], [address] [place] [address] 36 E 2018 10:55am [place] [address] Urine Color October Yellow Yellow [facility], [address] [place] [address] E 2018 10:15am [place]ET [address] Urine Appearance October Clear Clear [facility], [address] [place] [address] 36 E 2018 10:55am [place]ET [address] Urine Appearance October Clear Clear [facility], [address] [place] [address] 36 E 2018 10:15am [place] [address] Urine pH October 5.5 5.0-8.5 [facility], [address] [place] [address] 36 E 2018 10:55am [place] J[place]ET [address] Urine pH October 5.5 5.0-8.5 [facility], [address] [place] [address] 36 E 2018 10:15am [place] JANET [address] Urine Specific October 1.020 1.005-1.03 [facility], [address] [place] [address] E [place] 2018 0 10:55am [place] [address] Urine Specific October 1.015 1.005-1.03 [facility], [address] [place] [address] E [place] 2018 0 10:15am [place]ET [address] Urine Protein October Negative Negative [facility], [address] [place] [address] 36 E 2018 10:55am [place] JANET [address] Urine Protein October Negative Negative [facility], [address] [place] [address] 36 E 2018 10:15am [place]ET [address] Urine Glucose (UA) October Negative Negative [facility], [address] [place] [address] 2018 10:55am [place]ET [address] Urine Glucose (UA) October Negative Negative H [facility], [address] [place] [address] 2018 10:15am [place] JANET [address] Urine Ketones October Negative Negative [facility], [address] [place] [address] E 2018 10:55am [place] J[place]ET [address] Urine Ketones October Negative Negative [facility], [address] [place] [address] 2018 10:15am [place]ET [address] Urine Blood October Negative Negative [facility], [address] [place] [address] E 2018 10:55am [place] JANET [address] Urine Blood October Negative Negative [facility], [address] [place] [address] 2018 10:15am [place] J[place]ET [address] Urine Nitrate October Negative Negative [facility], [address] [place] [address] E 2018 10:55am [place] JANET [address]673 Urine Nitrate October Negative Negative [facility], [address] [place] [address] E 2018 10:15am [place] JANET [address] Urine Bilirubin October Negative Negative [facility], [address] [place] [address] 2018 10:55am [place]ET [address] Urine Bilirubin October Negative Negative [facility], [address] [place] [address] 2018 10:15am [place] JANET [address] Urine Urobilinogen October 0.2 EU/dl H [facility], [address] [place] [address] 2018 10:55am [place] J[place]ET [address] Urine Urobilinogen October 0.2 EU/dl H [facility], [address] [place] [address] E 2018 10:15am [place] JANET [address] Urine Leukocyte October Negative Negative [facility], [address] [place] [address] 36 E Esterase 2018 10:55am [place] JANET [address] Urine Leukocyte October Negative Negative [facility], [address] [place] [address] 36 E Esterase 2018 10:15am [place] JANTE [address] Urine RBC October 3-5 #/hpf [facility], [address] [place] [address] E 2018 10:55am [place] JANET [address] Urine RBC October Occasional # [facility], [address] [place] [address] 36 E 2018 /hpf 10:15am [place] [address] Urine WBC October 5-10 #/hpf [facility], [address] [place] [address] E 2018 10:55am [place] [address] Urine WBC October None #/hpf [facility], [address] [place] [address] E 2018 10:15am [place] [address] Urine Squamous October 5-10 #/hpf [facility], [address] [place] [address] E Epithelial Cells 2018 10:55am [place] JANET [address] Urine Squamous October Occasional [facility], [address] [place] [address] E Epithelial Cells 2018 #/hpf 10:15am [place] JANET [address] Urine Bacteria October Trace /lpf NONE [facility], [address] [place] [address] E 2018 10:55am [place] JANET [address] Urine Bacteria October None /lpf None [facility], [address] [place] [address] 36 E 2018 10:15am [place] [address] Sodium Level October 138 mmol/L 136-145 [facility], [address] [place] [address] 36 E 2018 10:55am [place] JANET [address] Sodium Level October 135 mmol/L 136-145 [facility], [address] [place] [address] 36 E 2018 5:43am [place] [address] Potassium Level October 4.3 mmoL/L 3.5-5.1 [facility], [address] [place] [address] 36 E 2018 10:55am [place] JANET [address] Potassium Level May 4.8 mmoL/L 3.5-5.1 [facility], [address] [place] [address] 36 E 2018 5:43am [place] [address] Chloride Level October 102 mmol/L 98-107 [facility], [address] [place] [address] E 2018 10:55am [place] [address] Chloride Level October 102 mmol/L 98-107 [facility], [address] [place] [address] 36 E 2018 5:43am [place] [address] Carbon Dioxide May 28 mmol/L 21.0-32.0 [facility], [address] [place] [address] E Level 2018 10:55am [place] JANET [address] Carbon Dioxide May 26 mmol/L 21.0-32.0 [facility], [address] [place] [address] E Level 2018 5:43am [place] [address] Anion Gap May 12.3 mEq/L 12-22 [facility], [address] [place] [address] E 2018 10:55am [place] [address] Anion Gap May 11.8 mEq/L 12-22 [facility], [address] [place] [address] E 2018 5:43am [place] [address] Blood Urea May 17 mg/dL 02-24 [facility], [address] [place] [address] E Nitrogen 2018 10:55am [place] [address]85[address] Blood Urea May 19 mg/dL 02-24 [facility], [address] [place] [address] E Nitrogen 2018 5:43am [place] [address] Creatinine May 1.11 mg/dL 0.55-1.02 [facility], [address] [place] [address] E 2018 10:55am [place] [address] Creatinine May 1.16 mg/dL 0.55-1.02 [facility], [address] [place] [address] E 2018 5:43am [place] [address] Estimated October 71 mL/min 0-300 [facility], [address] [place] [address] E Creatinine 2018 Clearance 5:43am [place] [address] Estimated GFR May 60 ML/MIN >59 [facility], [address] [place] [address] E () 2018 10:55am [place] [address] Estimated GFR May 57 ML/MIN >59 [facility], [address] [place] [address] E () 2018 5:43am [place] [address] Estimat Glomerular October 49 ml/min >59 H [facility], [address] [place] [address] E Filtration Rate 2018 10:55am [place] JANET [address] Estimat Glomerular May 47 ml/min >59 [facility], [address] [place] [address] E Filtration Rate 2018 5:43am [place] 10510 Glucose Level May 87 mg/dL 74-106 [facility], [address] [place] [address] E 2018 10:55am [place] [address] Glucose Level May 136 mg/dL 74-106 [facility], [address] [place] [address] 36 E 2018 5:43am [place] [address] Calcium Level May 8.9 mg/dL 8.5-10.1 [facility], [address] [place] [address] 36 E 2018 10:55am [place] [address] Calcium Level May 8.1 mg/dL 8.5-10.1 [facility], [address] [place] [address] 36 E 2018 5:43am [place] [address] Total Bilirubin May 0.2 mg/dL 0.2-1.0 [facility], [address] [place] [address] E 2018 10:55am [place] [address] Aspartate Amino October 16 U/L 15-37 [facility], [address] [place] [address] 36 E Transf (AST/SGOT) 2018 10:55am [place] [address] Alanine May 17 U/L 12-78 [facility], [address] [place] [address] E Aminotransferase 2018 (ALT/SGPT) 10:55am [place] [address] Total Protein May 7.0 gm/dL 6.4-8.2 [facility], [address] [place] [address] 36 E 2018 10:55am [place] [address] Albumin May 3.8 gm/dL 3.4-5.0 [facility], [address] [place] [address] 36 E 2018 10:55am [place] [address] Globulin May 3.2 gm/dl 1.3-3.2 [facility], [address] [place] [address] 36 E 2018 10:55am [place] [address] Albumin/Globulin May 1.2 1.1-1.8 [facility], [address] [place] [address] 36 E Ratio 2018 10:55am [place] [address] Alkaline May 90 U/L 46-116 [facility], [address] [place] [address] 36 E Phosphatase 2018 10:55am [place] [address] Diagnostic Imaging Reports Report Dictated Date/Time Dictated By Status Radiology Report May 04, 2019 12:17pm Terell Rodgers MD co mpleted [place] [address] [place] [facility] [address] [place] [address] XRay R eport Sig usha Patient: Gabriella Grider MR#: [id number] : 1950 Acct:[id number] Age/Sex: 68 / F ADM Date: 9 Loc: RAD Attending Dr: James Anderson MD Ordering Physician: James Anderson MD Date of Service: 05/04/19 Procedure(s): XR knee LT 4V Accession Number(s): [id number] cc: Terell Rodgers MD; Trey Evans MD~ PROCEDURE: XR KNEE LT 4V CLINICAL INDICATION: 4 views weightbea ring Knee pain COMPARISON: [id number] KNEE-4 OR 5 VIEWS- LT from 03/15/2014 FINDINGS: Severe osteoarthritic changes are prese nt involving the medial compartment with loss of joint space os teosclerosis and osteophyte formation. There are mild osteoarthrit ic changes of the lateral compartment and moderate osteoarthritic change of the patellofemoral joint. The osteoarthritis has progress ed compared to the previous exam. Vascular calcifications are also noted. There are some mild dysplastic changes of the medial femora l condyle and medial tibial plateau. IMPRESSION: Severe osteoarthritis of the left knee which has progressed compared to the previous exam Dictated by: Terell Rodgers MD 05/04/2019 12:49 Electronically signed by Terell Rodgers in OV 05/04/2019 12:50 Radiology Report May 24, 2019 10:40am Terell Rodgers MD comp leted [place] [address] [place] [facility] [address] [address] XRay R eport Sig usha Patient: Gabriella Grider MR#: [id number] : 1950 Acct:[id number] Age/Sex: 68 / F ADM Date: 9 Loc: RAD Attending Dr: James Anderson MD Ordering Physician: James Anderson MD Date of Service: 05/24/19 Procedure(s): XR knee RT 2V Accession Number(s): [id number] cc: Terell Rodgers MD; Trey Evans MD~ PROCEDURE: XR KNEE RT 2V CLINICAL INDICATION: one year follow u p right total knee arthroplasty COMPARISON: [id number] XR knee RT 4V fro m 04/21/2018 KNEELMRT XR knee RT 2V from 06/07/2018 KNEELMRT XR knee RT 2V from 07/22/2018 XR KNEE LT 4V from 05/04/2019 FINDINGS: No fracture or dislocation. No lytic or blastic change. There is normal mineralization. Status post total knee replacement. Go od alignment. No evidence of orthopedic complications Other findings:Previously noted nondisp laced fracture proximal tibia no longer apparent IMPRESSION: Good alignment status post total knee r eplacement Dictated by: Terell Rodgers MD 05/24/2019 12:20 Electronically signed by Terell Rodgers in OV 05/24/2019 12:20 Radiology Report May 24, 2019 10:40am Terell Rodgers MD comp leted [facility] [address] [place] [facility] [address] [place] [address] XRay R eport Sig usha Patient: Gabriella Grider MR#: [id number] : 1950 Acct:[id number] Age/Sex: 68 / F ADM Date: 9 Loc: RAD Attending Dr: James Anderson MD Ordering Physician: James Anderson MD Date of Service: 05/24/19 Procedure(s): XR chest 2V Accession Number(s): [id number] cc: Terell Rodgers MD; Trey Evans MD~ PROCEDURE: XR CHEST 2V CLINICAL HISTORY: HTN,COPD COPD COMPARISON: CXR1 CHEST-PORTABLE from 12/29/2014 CXR CHEST(2 VIEWS-NOT PORTABLE) from 06/22/[address] CHEST W/ CONTRAST from 7 CXR2V XR chest 2V from 05/20/2018 FINDINGS: The cardiomediastinal silhouette and pu lmonary vascularity are within normal limits. Hyperinflation with attenuation of the peripheral pulmonary vessels consistent with COPD. Increased markin gs are present in both lung bases and may represent pericardial fat pads but are more prominent than when compared to the previous exam . There is evidence of old granulomatous disease No acute bony abnormalities. IMPRESSION: COPD with old granulomatous disease and probable pericardial fat pads with no acute finding Dictated by: Terell Rodgers MD 05/24/2019 12:22 Electronically signed by Terell Rodgers in OV 05/24/2019 12:22 Radiology Report June 06, 2019 1:57pm Terell Rodgers MD compl eted [place] [address] [place] [facility] [address] [place] [address] XRay R eport Sig usha Patient: Gabriella Grider MR#: [id number] : 1950 Acct:[id number] Age/Sex: 68 / F ADM Date: 9 Loc: [address] [place] [address].2A-[address]: James Anderson MD Ordering Physician: James Anderson MD Date of Service: 06/06/19 Procedure(s): XR knee LT 2V Accession Number(s): [id number] cc: Terell Rodgers MD; Trey Evans MD~ PROCEDURE: XR KNEE LT 2V CLINICAL INDICATION: post left total k nee arthroplasty Follow-up knee replacement COMPARISON: KNEELMRT XR knee RT 2V fro m 06/07/2018 KNEELMRT XR knee RT 2V from 07/22/2018 XR KNEE LT 4V from 05/04/2019 XR KNEE RT 2V from 05/24/2019 FINDINGS: Status post total knee replacement with good alignment. No or the peak complications. Postsurgical gas n oted. Other findings:None. IMPRESSION: Good alignment status post total knee r eplacement Dictated by: Terell Rodgers MD 06/06/2019 14:13 Electronically signed by Terell Rodgers in OV 06/06/2019 14:13 Health Concerns Concerns knee repair Advance Directives Advance Directive Response Recorded Date/Time Living Will Yes June 06, 2019 2 :40pm Chief Complaint and Reason for Visit Chief Complaint left knee xray, no accident Lt knee pain XR RIGHT KNEE AND PRE OP CXR ; LAB WORK LAB WORK OR Encounters Encounter Location(s) Arrival/Admit Date Discharge/Depart Date Provider(s) Registered [facility] Physician May 04, [facility] 2018 11:58am MD Departed [facility] Physician May 24, 2019 May 24, 2019 Britton Anderson Physician/[facility]-Surgical 8:58am 10:04am MD abelino Office Suite Visit Registered [facility] Physician May 24, 2019 [facility] 10:11am , Registered [facility] Physician June 04, 2019 James [facility]Laboratory 9:00am , Discharged [facility] Physician June 06, 2019 June 07, 2019 Britton Anderson [facility]patient Group-Second 8:11am 6:19pm , Floor Registered [facility] Physician June 08, 2019 James Anderson Inpatient Group- 2:25pm , Assessments See care plan goals Functional Status Observation Response Date Recorded Oral Care Ability Independent June 06, 2019 2 :40pm Bathing Ability Standby Assistance June 07, 2019 7 :54am Eating (Feeding) Ability Independent June 06 019 2:40pm Toileting Ability Independent June 06, 2019 2 :40pm Ambulation Ability Standby Assistance June 07, 2019 6 :11pm Functional status ambulatory May 27, 2019 2 :49pm Goals Acute Goals Nursing Diagnosis: Knowledge Deficit D isease/Condition Goal(s): Education of di sease process Instruction(s): Follow provider p dez/instructions (See attached discharge education) Follow/up with primary care provider as instructed in discharge packet Immunizations Immunization Event Date Not Given 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 Lot Number Va ccine Reason Number Informatio n Statement (VIS) Deta il Fluzone June VIS not gi sanjay High-Dose 65YR+ 2016 Fluzone July VIS not gi sanjay High-Dose 65YR+ 2017 Hepatitis B January 09 not given Vaccine, adult 1996 dosage Hepatitis B July VIS not given Vaccine, adult 1996 dosage Hep B, February 07 VIS not gi sanjay adolescent/high 1997 risk Pneumococcal September VIS not given Conjugate 2018 Vaccine, 13 valent Tetanus, December 18 VIS not gi sanjay Diphtheria, 2006 Pertussis (Tdap) Tetanus, June VIS not gi sanjay Diphtheria, 2016 Pertussis (Tdap) Mental Status Observation Response Date Recorded Comprehension Ability No Impairment June 07, 2019 5:00pm Able to Read Yes June 06, 2019 2 :40pm Able to Write Yes June 06, 2019 2 :40pm Ability to Follow Directions Excellent May 2:40pm Eye Contact Direct Eye Contact June 06, 2019 2 :40pm Oral Expression Ability No Impairment June 06 2:40pm Medical Equipment Implanted Devices Device Date Implanted BRENDAN Number GNS II BICONVEX PAT 29MM June 07, 2018 GNS II CMT TIB SZ 3 RT June 07, 2018 LEGION PS OXIN FEM SZ 4 RIGHT June 07, 2018 LGN PS HIGH FLEX 3-4 SZ 11MM June 07, 2018 VERSABOND AB 40 GRAMS F2 June 07, 2018 VERSABOND AB 40 GRAMS F2 June 07, 2018 Unicondylar knee prosthesis June 06, 2019 ()[id number] Uncoated knee tibia prosthesis, June 06, 2019 ()[id number] polyethylene [id number] Uncoated knee tibia prosthesis, June 06, 2019 ()[id number] metallic [id number] Polyethylene patella prosthesis June 06, 2019 ()[id number] Insurance Providers Guarantor Gabriella Grider Address [address] [place], [place] [id number] Contact Info. Home Phone: Payer Policy Id Coverage Id Subscriber's Subscriber Id Effective E xpiration Name Date Date [employer] Life [id number] Gabriella Thompson [id number] June Insurance Co Cheo 2016 [facility] Self Pay Self N/A Plan of Treatment Follow up as ordered by primary care provider Future Tests Future scheduled test information is unavailable Pending Tests Pending diagnostic test information is unavailable Future Visits Future appointment information is unavailable Referrals to Other Providers Reason for Referral Start Provider Provider Contact Provider Address Referral Date Information Admission to [facility] June [address] Future Procedures Future procedure information is unavailable Future Medications Future medication information is unavailable Patient Instructions Osteoarthritis DI for Knee Replacement DI for Surgical Site Infection Social History Assigned Sex Female Vital Signs Vital Reading Result Reference Range Collection Date/ Time Height 165.1 cm May 24 9:06am Weight 90.71 kg May 24 9:06am Body Temperature 97 [degF] 97.6-99.6 May 24, 2 019 9:06am Heart Rate 88 /min 60-May 24 9:06am BP Systolic 146 mm[Hg] 110-140 May 24, 9:06am BP Diastolic 82 mm[Hg] 60-90 May 24, 9:06am BMI (Body Mass Index) 33.3 kg/m2 May 242018 9:06am Height 165.1 cm June 07 5:48am Weight 94.03 kg June 07 5:48am Body Temperature 98.2 [degF] 97.6-99.6 June 07, 2 019 4:00pm Heart Rate 78 /min -June 07 4:00pm Respiratory rate 18 /min -June 07, 2 019 4:00pm Oxygen saturation by Pulse 95 % 95-100 Octob er 2018 4:00pm oximetry BP Systolic 112 mm[Hg] 110-140 June 07 4:00pm BP Diastolic 68 mm[Hg] 60-90 June 07 4:00pm BMI (Body Mass Index) 34.4 kg/m2 June 072018 5:48am Inhaled oxygen concentration 28 % Oct tam 2018 11:00pm
== END 2019-06-07 18:19 | disposition home health service (06) ==
LOC: 2ND 08:09 → OR 08:09 → 2ND 14:17
PROVIDERS: ADMIT Orthopaedic Surgery; ATTEND Orthopaedic Surgery
CPT/HCPCS: 36415; 73560; 80048; 81001; 85007; 85025; 94640; 94761; 96374; 97110; 97116; 97161; 97166; C1776; G0378; J2405; J3370

== ENCOUNTER → 2019-08-30 12:58 | Outpatient (CLI) | payer MEDICARE, SELFPAY ==
--- NOTE | 2019-08-30 13:06 | XR_ITS ---
PROCEDURE: XR KNEE LT 2V CLINICAL INDICATION: LEFT TOTAL KNEE, dos 06/06/19 COMPARISON: KNEELMRT XR knee RT 2V from 07/22/2018 XR KNEE LT 4V from 05/04/2019 XR KNEE RT 2V from 05/24/2019 XR KNEE LT 2V from 06/06/2019 FINDINGS: There has been total knee arthroplasty. Prostheses appear appropriately seated. No acute fracture or dislocation is apparent. Other findings:None. IMPRESSION: No acute findings. Dictated by: Sean Gómez 08/30/2019 15:58 Electronically signed by Sean Gómez in [facility] 08/30/2019 15:58
== END ==
PROVIDERS: PCP Family Medicine; Visit Provider Orthopaedic Surgery
DX: M25.562 Pain in left knee (principal); Z96.652 Presence of left artificial knee joint
CPT/HCPCS: 73560

== ENCOUNTER → 2020-03-16 14:54 | Outpatient (CLI) | payer MEDICARE, SELFPAY ==
--- NOTE | 2020-03-16 14:57 | CT_ITS ---
PROCEDURE: CT CHEST W CON CLINCAL INDICATION: LUNG NODULE Cough, shortness of air, follow-up lung nodule, emphysema, COPD COMPARISON: CT CHW CT CHEST W/ CONTRAST from 06/25/[address] lung screening from 10/18/2018 TECHNIQUE: IV Contrast: 75ml Optiray 350 Axial images obtained with sagittal and coronal reformats. All CT scans at the facility use one or more dose reduction, viz: automated exposure control, ma/kV adjustment per patient size (including targeted exams where dose is matched to indication, i.e. head), or iterative reconstruction technique. FINDINGS: No mediastinal or hilar mass or adenopathy. COPD with mild interstitial prominence. There are scattered small nodular opacities once again noted. This includes a 4 mm nodule in the right upper lobe in a 4 mm nodule in the right lower lobe. 6 mm nodules present in the lingula. The size of the nodule is not significantly changed. The nodule is slightly more dense than when compared to the previous exam possibly related to the technique or slice orientation. Continued follow-up is suggested. There is mild diffuse bronchial thickening. No new nodules are identified. There is a low-dense nodule in the right breast medially with an average density of -99 Hounsfield units and may represent a lipoma or oil cyst measuring 1.5 cm IMPRESSION: Overall stable CT appearance of the chest. There is COPD with bronchial thickening and prominence of the interstitium. 6 mm nodule in the lingula once again noted not significantly changed in size but slightly more dense possibly related to the technique. Suggest continued six-month follow-up. Dictated b Terell Rodgers MD 03/17/2020 09:11 Terell Rodgers MD in [facility] 03/17/2020 09:11
--- NOTE | 2020-03-16 14:58 | MM_ITS ---
PROCEDURE: MM DIG SCREENING MAMM BI W/CAD Digital Breast Tomosynthesis Included CLINICAL INDICATION: FIBROCYSTIC BREAST DISEASE There is a history of breast cancer in the patient's daughter diagnosed at age 42. There has been a previous lumpectomy right breast for malignancy with follow-up radiation therapy. COMPARISON: MG DMSB DIG MAMM-SCREEN BE from 01/31/2016 MG DMDXUAVR DIG MAMM-DX UNI ADD VIEWS-RT from 02/14/2016 MG SCBI MM Dig screening mamm BI w/CAD from 03/15/2018 TECHNIQUE: Standard CC and MLO images and 3D Tomosynthesis was obtained. R2 CAD reviewed. FINDINGS: Again noted is the fact that the right breast is smaller than the left secondary to the previous lumpectomy. There is stable large coarse macrocalcifications at the lumpectomy site likely due to fat necrosis from previous surgery. There also is a stable oval-shaped lesion with peripheral calcification at the lumpectomy site and again likely representing fat necrosis. There are few additional microcalcifications at the lumpectomy site. Scattered fibroglandular densities are seen in both breasts primarily in the subareolar region. There is a mole marker left breast. There is a stable tiny benign-appearing nodular density central portion left breast. There is a probable new density upper-outer quadrant left breast with slightly irregular borders. Recommend the patient return for spot compression views and ultrasound for additional evaluation particularly in view of the family and personal history of breast cancer. IMPRESSION: Fibrofatty parenchyma with stable postlumpectomy changes right breast and possible new developing lesion left breast versus asymmetric normal glandular elements BI-RAD Category: 0 Need Additional Imaging Evaluation FOLLOW-UP: IMM Immediate Follow-up Recommended (A letter has been sent to the patient regarding results of the study.) Dictated Dr. Tian Dial MD 03/20/2020 08:42 Dr. Tian Acosta MD in [facility] 03/20/2020 08:42
== END ==
PROVIDERS: PCP Family Medicine; Visit Provider Family Medicine
DX: Z12.31 Encounter for screening mammogram for malignant neoplasm of breast (principal); R91.1 Solitary pulmonary nodule
CPT/HCPCS: 71260; 77063; 77067; Q9967

== ENCOUNTER → 2020-03-30 14:31 | Outpatient (CLI) | payer MEDICARE, SELFPAY ==
--- NOTE | 2020-03-30 14:35 | MM_ITS ---
PROCEDURE: MM DIG MAMM DX UNILAT LT CAD Digital Breast Tomosynthesis Included CLINICAL INDICATION: ABN MAMM COMPARISON: MG DMSB DIG MAMM-SCREEN BE from 01/31/2016 MG DMDXUAVR DIG MAMM-DX UNI ADD VIEWS-RT from 02/14/2016 MG SCBI MM Dig screening mamm BI w/CAD from 03/15/2018 MG MM DIG SCREENING MAMM BI W/CAD from 03/16/2020 US US BREAST LT COMPLETE from 03/30/2020 US US BREAST RT COMPLETE from 03/30/2020 TECHNIQUE: Spot-compression views performed of the left breast along with bilateral breast ultrasound FINDINGS: There is some asymmetry in the superior aspect of the left breast which mostly appears to compress out as fibroglandular tissue. With a small nodule in this region on the spot compression view which measures approximately 3 mm.. There is however a 6 mm somewhat irregular nodular opacity in the outer aspect of the left breast as seen on the spot compression view. This is anterior to the original area of concern on the screening exam. This appears to be in the mid aspect of the breast on the MLO view 6 cm posterior to the nipple. Left breast ultrasound: There is a 4 x 2 mm cyst at 1 o'clock. At 2 o'clock there is an irregular hypoechoic nodule with suggestion of some posterior shadowing. This measures approximately 7 x 5 mm and is suspicious. Behind the nipple there is a 5 mm cyst. There are some small nodes in the axilla on the left. Right breast ultrasound: At 3 o'clock there is an 18 x 10 mm cystic lesion. There is some posterior acoustical shadowing but may be due to an oil cyst as seen on the mammogram. Additionally at 3 o'clock there is a hypoechoic nodule at 5 by 5 mm also which may represent an oil cyst with posterior acoustical shadowing and some hyperechoic merino which are thin. IMPRESSION: There is a suspicious 5 mm nodule in the 2-3 o'clock region of the left breast seen on mammogram and ultrasound. Ultrasound-guided mammotome biopsy is suggested. BI-RAD Category: 4 Suspicious Abnormality - Biopsy Considered FOLLOW-UP: BIO Biopsy Recommended (A letter has been sent to the patient regarding results of the study.) Dictated by: Terell Rodgers MD 04/09/2020 10:00 Terell Rodgers MD in [facility] 04/09/2020 10:00
== END ==
PROVIDERS: PCP Family Medicine; Visit Provider Family Medicine
DX: R92.8 Other abnormal and inconclusive findings on diagnostic imaging of breast (principal)
CPT/HCPCS: 76641; 77061; 77065; G0279

== ENCOUNTER → 2020-04-24 12:32 | Outpatient (CLI) | payer MEDICARE, SELFPAY ==
--- NOTE | 2020-04-24 12:40 | US_ITS ---
PROCEDURE: US MAMMOTOME BX LT CLINICAL INDICATION: ABN MAMM Abnormal mammogram and ultrasound. COMPARISON: MG MM DIG SCREENING MAMM BI W/CAD from 03/16/2020 US US BREAST LT COMPLETE from 03/30/2020 MG MM CLIP PLACEMENT LT from 04/24/2020 FINDINGS: Following obtaining informed consent and time-out procedure and using sonographic guidance under aseptic conditions and local anesthesia with 1 percent buffered lidocaine and deeper anesthesia with lidocaine mixed with epinephrine, mammotome needle was inserted using sonographic guidance and multiple mammotome biopsies were obtained. A non ferromagnetic clip was then placed. The patient tolerated the procedure well without evidence of immediate complication. An FNA was performed with sonographic guidance before the mammotome biopsy. The patient tolerated the procedure well without evidence of immediate complication Post biopsy mammogram: Post biopsy changes are present in the outer aspect of the left breast near 3 o'clock at the junction of the anterior and mid 3rd of the breast. A clip is present at this region. Pathology: Invasive ductal carcinoma, triple negative FNA also demonstrated atypical cells. IMPRESSION: 1. Uneventful and successful ultrasound-guided mammotome biopsy of the left breast demonstrated invasive ductal carcinoma 2. Surgical consult suggested. Dictated by: Terell Rodgers MD 05/02/2020 09:02 Terell Rodgers MD in [facility] 05/02/2020 09:02
== END ==
PROVIDERS: PCP Family Medicine; Visit Provider Physician Assistant
DX: R92.8 Other abnormal and inconclusive findings on diagnostic imaging of breast (principal); C50.812 Malignant neoplasm of overlapping sites of left female breast; Z17.1 Estrogen receptor negative status [ER-]
CPT/HCPCS: 19083; 76942; 77065; 88173; 88305; 88342; 88360; C2618

== ENCOUNTER → 2020-06-18 10:32 | Outpatient (CLI) | payer MEDICARE, SELFPAY ==
[2020-06-18 10:50] LABS: Basophils # 0.1 K/mm3 (0-0.2); Basophils % 0.5 % (0.1-2.0); Eosinophils # 0.4 K/mm3 (0.0-0.4); Eosinophils % 3.3 % (0.1-12.0); Hematocrit 47.7 % (37.0-47.0); Hemoglobin 14.7 g/dL (12.2-16.2); Lymphocytes # 1.9 K/mm3 (0.7-4.5); Lymphocytes % 16.6 % (10-50); Mean Corpuscular HGB Conc 30.9 g/dL (31.8-35.4); Mean Corpuscular Hemoglobin 26.4 pg (27.0-31.2); Mean Corpuscular Volume 85.6 fl (81-99); Mean Platelet Volume 8.3 fl (7.4-10.4); Monocytes # 0.6 K/mm3 (0.1-1.0); Monocytes % 5.2 % (1.7-9.3); Neutrophils # 8.6 K/mm3 (1.8-7.8); Neutrophils % 74.4 % (37.0-80.0); Platelet Count 398 K/mm3 (142-424); Red Blood Count 5.58 M/mm3 (4.20-5.40); White Blood Count 11.6 K/mm3 (4.8-10.8)
[2020-06-18 11:20] LABS: Chloride 94 mmol/L (98-107)
[2020-06-18 11:21] LABS: Potassium 4.1 mmoL/L (3.5-5.1); Sodium 138 mmol/L (136-145)
[2020-06-18 11:23] LABS: Blood Urea Nitrogen 19 mg/dl (7-17); Estimated Glomerular Filt Rate 55 ml/min (>60); GFR (African American) 67 ML/MIN (>60)
[2020-06-18 11:24] LABS: Anion Gap 13.1 mEq/L (5-15); Calcium 9.6 mg/dl (8.4-10.2); Carbon Dioxide 35 mmol/L (22.0-30.0); Glucose 119 mg/dl (74-100)
[2020-06-18 12:08] LABS: Coronavirus 19 IgG Antibody Negative (Negative); Coronavirus 19 IgM Antibody Negative (Negative)
== END ==
PROVIDERS: Visit Provider Surgery
DX: C50.912 Malignant neoplasm of unspecified site of left female breast (principal); Z01.818 Encounter for other preprocedural examination
CPT/HCPCS: 36415; 80048; 85025; 86328

== ENCOUNTER 2020-06-20 07:41 | Day surgery (SDC) | payer MEDICARE, SELFPAY ==
[2020-06-18 09:57] VITALS: BMI 33.3
[2020-06-20] VITALS (10 sets, daily range): BP systolic 103–140; BP diastolic 67–81; PULSE 70–102; RESP 12–18; TEMP 36.3–36.8; O2SAT 90–96
--- NOTE | 2020-06-20 08:37 | P.PN_ITS ---
[facility] Anesthesia Checklist - Patient Identification Patient Identification: Arm Band - Structural Data Admitted From: Home Planned Operative Procedure/s: Left Breast Lumpectomy with Sentinal Node Biopsy Consent for Planned Operative Procedure(s) Verified: Yes Verified Documents: Surgical Consent, History and Physical - NPO Status Verified Time NPO: 00:00 - Additional verifications Anesthesia Reactions: No Hx Blood Transfusions: No Blood Transfusion Reaction: No - Airway Assessment C-Spine Mobility Assessed: Yes (mp2) TMJ Mobility Assessed: Yes Dentition: Edentulous - Neurological Assessment Level of Consciousness: Awake, Alert - Anesthesia Plan Anesthesia Risk discussed: Yes Anesthesia Plan: Verified ASA Class: III Anesthesia Type: General [facility] History I have reviewed the patient's past medical history: Yes Medical History: Reports:: Cancer (breast), Chronic Obstructive Pulmonary Disease (COPD), Hyperlipidemia, Hypertension Denies:: Diabetes Mellitus Type 1, Diabetes Mellitus Type 2, Internal Pacemaker, MRSA, Seizures *Have you ever received a pneumonia vaccine?: Yes *Have you received a flu vaccine this season?: No Other Medical History: Reports: Arthritis, Thyroid Disease. Denies: Blood Transfusion Reaction Anesthesia experience/problems:: nac Laterality Cases: Right: Breast Biopsy, Lumpectomy, Bilateral: Total Knee Replacement Other Surgeries: Yes: Cholecystectomy, Other. No: Pacemaker Amputation: No Fractures: No - *Social History Last grade of school completed: Some college Smoking Status: Current every day smoker Tobacco Type: cigarettes # Packs/Day (cigarettes): 1 Alcohol Intake: never Substance Use Type: denies use *Occupational Status:: retired Housing: house Household Members: none *Travel in the last 8 weeks: None Family Hx:: Cancer, Heart Attack, Hyperlipidemia, Hypertension
--- NOTE | 2020-06-20 09:14 | NM_ITS ---
PROCEDURE: NM SENTINEL NODE INJECT ONLY CLINICAL INDICATION: breast cancer COMPARISON: No exams were available for comparison FINDINGS: Dose: 1.5 mCi technetium sulfur colloid Following obtaining informed consent and time-out under aseptic conditions and local anesthesia with 1 percent buffered lidocaine, 6 intradermal injections were performed in the periareolar region at 12, 2, 4, 6, 8, and 10 o'clock the position for total of 1.5 mCi technetium sulfur colloid. The patient tolerated the procedure well without evidence of immediate complication and was taken to surgery after the procedure IMPRESSION: [place] node injection as described Dictated by: Terell Rodgers MD 06/20/2020 19:13 Terell Rodgers MD in [facility] 06/20/2020 19:13
--- NOTE | 2020-06-20 11:16 | MM_ITS ---
PROCEDURE: MM NEEDLE LOC LT Digital Breast Tomosynthesis Included CLINICAL INDICATION: RT BX COMPARISON: MG MM CLIP PLACEMENT LT from 04/24/2020 TECHNIQUE: Following obtaining informed consent under aseptic conditions and local anesthesia with 1 percent buffered lidocaine, a 7 cm Kopan's needle was inserted into the left breast and placed adjacent to the previously placed mammotome clip within the outer aspect of the left breast. The hookwire was then deployed and deemed to be in satisfactory position. The patient tolerated the procedure well without evidence of immediate complication. FINDINGS: Specimen radiograph demonstrates the hookwire in place in satisfactory position with the mammotome E clip noted. IMPRESSION: Uneventful hookwire localization performed of the left breast as described above. Dictated by: Terell Rodgers MD 06/29/2020 14:14 Terell Rodgers MD in [facility] 06/29/2020 14:14
--- NOTE | 2020-06-20 15:14 | HMH.OPNOTE ---
Date of procedure: 06/20/20 Pre-op Diagnosis:: Left breast cancer Post-op Diagnosis:: Same Procedure performed:: Left breast lumpectomy/partial mastectomy after wire localization Left axillary sentinel lymph node biopsies after mapping Surgeon:: Sukhdev Riley MD FINISH MENDER:: Ignacio Graham Anesthesia: GETA Estimated blood loss (mL): 50 Clinical Note:: 69-year-old female originally referred by Dr. Evans for left breast cancer. She has a history of right breast cancer diagnosed and treated by Dr. Monique surgically in 2008 with right lumpectomy and radiation. Exact details of this are unknown. Of note, patient has a daughter who had been diagnosed with breast cancer the age of 42. She does not recall any genetic testing. She recently had been undergoing routine screening mammogram and there was a focal asymmetry in the left upper outer quadrant. She underwent additional views and ultrasound was found to have a 5 x 7 mm area which she underwent ultrasound-guided mammotome. Pathology returned as invasive triple negative ductal breast adenocarcinoma. After my initial consultation I felt that seeing oncology and radiation oncology would be warranted prior to proceeding with surgery. She has seen Dr. Mckeon. She has seen radiation oncology in [place]. Dr. Mckeon and radiation oncology recommended surgery followed by radiation. Initially patient was somewhat hesitant to proceed with this but ultimately was very comfortable and ready to proceed with surgery. Operative findings:: She has significant fatty infiltration of the breast tissue. No obvious axillary adenopathy. Operative note:: Patient was initially taken to radiology where she underwent wire localization of the lesion in question where there was a clip placed and injection of tracer for sentinel lymph node mapping. She was then taken to the operating room. She was given preoperative intravenous antibiotics. In the operating room she was placed in a supine position. General anesthesia was induced. She was given preoperative intravenous antibiotics. Attention was first turned to the left axilla. Gamma neoprobe detection system was brought onto the field. There is diffuse signal within the axilla. Skin was marked with a skin marker. Curvilinear incision was made. Dissection was carried down through subcutaneous tissues and superficial fascia using electrocautery. Axillary fascia was entered. With repeated use of the neoprobe ultimately with some prolonged dissection the first sentinel lymph node was encountered. It was dissected free using blunt dissection with limited Metzenbaum dissection with clips placed on the lymphatic vessels. [place] lymph node #1 had a count of greater than 50,000. There is seem to be significant residual signal in the axilla. Therefore additional prolonged dissection was carried out ultimately identifying additional sentinel lymph nodes with proportionally minimal tracer uptake. Ultimately background count was performed and was found to be 80. Next attention was turned to the partial mastectomy. Based on the imaging this area appeared to be in the left upper outer quadrant but somewhat posterior to the areola. Curvilinear incision was made in the left upper quadrant. Dissection was carried down through superficial subcutaneous tissues. The wire was delivered into the wound. Dissection was carried out around the wire. The breast tissue was rather fatty and very friable. Centrally there was some thickened ductal tissue consistent with fibrocystic type change. The tip of the wire was exposed. This appeared to be in the inferior medial region of the lumpectomy bed. Nonetheless, wide excision was made around the wire at the site of the specimen. Specimen radiograph was performed which revealed lesion centrally within the specimen with good radiographic margins. Wound was thoroughly irrigated. There was good hemostasis. At the mastectomy site subder
--- NOTE | 2020-06-20 15:19 | HMH.ANESI ---
[facility] Anesthesia Record Part I Intake, IV Amount: 2,500 Estimated blood loss (mL): 100 Urine output (mL): 0 Blood Pressure: 139/74 SaO2: 95 Pulse Rate: 94 Respiratory Rate: 12 Temperature: 97.3 F Patient is:: Awake, Stable Stable to PACU at:: 15:15
[2020-06-22 09:20] VITALS: BP 121/69; PULSE 84; TEMP 36.8
--- NOTE | 2020-06-22 09:20 | HMH.ANESII ---
[facility] Anesthesia Record Part II Discharge Time: 15:45 [facility] nurse assessment reviewed?: Yes Patient Condition:: Good Anesthesia Complications:: None Swallowing reflex intact?: Yes Cyanosis?: No Blood Pressure: 121/69 Pulse Rate: 84 Temperature: 98.3 F Mental Status: Alert & Oriented Pain level:: 0 Nausea and/or vomitting:: None Intake, IV Amount: 1,500
== END 2020-06-20 16:31 | disposition home or self-care (01) ==
LOC: OR 07:42
PROVIDERS: PCP Family Medicine; Visit Provider Surgery
PROC: (CPT 19301; principal; 2020-06-20 10:00)
DX: C50.912 Malignant neoplasm of unspecified site of left female breast (principal); Z85.3 Personal history of malignant neoplasm of breast; Z80.3 Family history of malignant neoplasm of breast; J44.9 Chronic obstructive pulmonary disease, unspecified; E78.5 Hyperlipidemia, unspecified; I10 Essential (primary) hypertension; M19.90 Unspecified osteoarthritis, unspecified site; E07.9 Disorder of thyroid, unspecified; Z96.659 Presence of unspecified artificial knee joint
CPT/HCPCS: 19301; 38525; 19281; 38792; 96374; A9541; J2405

== ENCOUNTER → 2020-12-17 12:35 | Outpatient (CLI) | payer MEDICARE, SELFPAY ==
--- NOTE | 2020-12-17 12:39 | XR_ITS ---
PROCEDURE: XR CHEST 2V CLINICAL HISTORY: LUNG NODULE COMPARISON: CR CXR CHEST(2 VIEWS-NOT PORTABLE) from 06/22/2017 CR CXR2V XR chest 2V from 05/20/2018 CR XR CHEST 2V from 05/24/[address] CHEST W CON from 03/16/2020 FINDINGS: Background of minor chronic interstitial changes are noted. No lobar consolidation, pleural effusions or pneumothorax. Calcified granuloma in the left mid zone. The heart size and central pulmonary vasculature within normal limits. Vascular calcification is noted. Postsurgical changes in the left axilla are noted. Degenerative changes of the visualized thoracic spine. IMPRESSION: Minor chronic interstitial changes. No lobar consolidation or pleural effusions. The lung nodules noted on the prior CT scan are not visualized on the current radiograph. Noncontrast CT scan of the thorax is recommended to evaluate for lung nodules. Dictated by: Jenny Anderson 12/17/2020 13:17 Jenny Anderson in [facility] 12/17/2020 13:17
== END ==
PROVIDERS: PCP Family Medicine; Visit Provider Family Medicine
DX: R91.1 Solitary pulmonary nodule (principal)
CPT/HCPCS: 71046

== ENCOUNTER → 2020-12-25 14:46 | Outpatient (CLI) | payer MEDICARE, SELFPAY ==
--- NOTE | 2020-12-25 14:48 | CT_ITS ---
PROCEDURE: CT CHEST WO CON CLINICAL INDICATION: PULMONARY NODULE Hx of breast cancer in 1998 and in June 2020. Follow up to chest x-ray COMPARISON: CT CT CHEST W CON from 03/16/2020 TECHNIQUE: Axial images obtained with sagittal and coronal reformats. All CT scans at the facility use one or more dose reduction, viz: automated exposure control, ma/kV adjustment per patient size (including targeted exams where dose is matched to indication, i.e. head), or iterative reconstruction technique. FINDINGS: There is diffuse subcutaneous edema along the left chest wall and left breast. The patient has had recent left-sided breast surgery. No mediastinal or hilar mass. There are coronary artery calcifications. Centrilobular emphysematous changes are noted. There is a new right upper lobe nodule image 19 series 3. This measures 6 mm. There is a stable right upper lobe nodule medially at 4 mm image 36 calcified granulomas present in the left lower lobe. There are mild atelectatic or fibrotic changes in the lingula. Previously noted 5 mm lingular nodule is somewhat less apparent the. No effusions or infiltrates. There is a 4 cm left renal cyst. No acute bony finding. IMPRESSION: 1. There is a new 6 mm nodule in the right upper lobe. This could be inflammatory or neoplastic. This is probably too small to be detected by PET CT and too small for tissue sampling. Close surveillance therefore recommended in 3 months. Previously noted right upper lobe nodule is stable and there is a small nodule in the lingula which is somewhat less apparent. 2. Postsurgical changes with diffuse subcutaneous soft tissue swelling along the left anterior and lateral hemithorax. Dictated by: Terell Rodgers MD 12/26/2020 09:57 Terell Rodgers MD in [facility] 12/26/2020 09:57
== END ==
PROVIDERS: PCP Family Medicine; Visit Provider Family Medicine
DX: R91.1 Solitary pulmonary nodule (principal)
CPT/HCPCS: 71250

== ENCOUNTER → 2021-01-03 09:02 | Outpatient (CLI) | payer MEDICARE, SELFPAY ==
[2021-01-03 09:59] LABS: Basophils # 0.1 K/mm3 (0-0.2); Basophils % 0.6 % (0.1-2.0); Eosinophils # 0.4 K/mm3 (0.0-0.4); Eosinophils % 4.1 % (0.1-12.0); Hemoglobin 14.2 g/dL (12.2-16.2); Lymphocytes # 1.8 K/mm3 (0.7-4.5); Lymphocytes % 18.2 % (10-50); Mean Corpuscular HGB Conc 31.6 g/dL (31.8-35.4); Mean Corpuscular Hemoglobin 26.5 pg (27.0-31.2); Mean Corpuscular Volume 83.9 fl (81-99); Mean Platelet Volume 7.2 fl (7.4-10.4); Monocytes # 0.5 K/mm3 (0.1-1.0); Monocytes % 5.1 % (1.7-9.3); Neutrophils # 7.2 K/mm3 (1.8-7.8); Platelet Count 387 K/mm3 (142-424); Red Blood Count 5.36 M/mm3 (4.20-5.40); White Blood Count 9.9 K/mm3 (4.8-10.8)
[2021-01-03 10:03] LABS: Alanine Aminotransferase 18 U/L (12-78); Albumin Level 4.3 g/dl (3.5-5.0); Albumin/Globulin Ratio 1.8 (1.1-1.8); Alkaline Phosphatase 97 U/L (38-126); Anion Gap 9.5 mEq/L (5-15); Aspartate Amino Transferase 29 U/L (14-36); Bilirubin,Total 0.5 mg/dl (0.2-1.3); Blood Urea Nitrogen 14 mg/dl (7-17); Calcium 8.9 mg/dl (8.4-10.2); Carbon Dioxide 30 mmol/L (22.0-30.0); Chloride 102 mmol/L (98-107); Estimated Glomerular Filt Rate 71 ml/min (>60); GFR (African American) 86 ML/MIN (>60); Globulin 2.4 g/dL (1.3-3.2); Glucose 106 mg/dl (74-100); Potassium 4.5 mmoL/L (3.5-5.1); Sodium 137 mmol/L (136-145); Total Protein,Serum 6.7 g/dl (6.3-8.2)
== END ==
PROVIDERS: Visit Provider Internal Medicine Medical Oncology
DX: C50.912 Malignant neoplasm of unspecified site of left female breast (principal)
CPT/HCPCS: 36415; 80053; 85025

== ENCOUNTER → 2021-03-17 18:59 | Outpatient (CLI) | payer MEDICARE, SELFPAY | PROVIDERS: PCP Family Medicine; Visit Provider Family Medicine | DX: Z20.822 Contact with and (suspected) exposure to COVID-19 (principal) | CPT/HCPCS: U0003 ==

== ENCOUNTER → 2021-03-22 10:03 | Outpatient (CLI) | payer MEDICARE, SELFPAY ==
[2021-03-22 11:52] LABS: Blood Urea Nitrogen 21 mg/dl (7-17); Estimated Glomerular Filt Rate 55 ml/min (>60); GFR (African American) 67 ML/MIN (>60)
== END ==
PROVIDERS: Visit Provider Family Medicine
DX: Z01.812 Encounter for preprocedural laboratory examination (principal)
CPT/HCPCS: 36415; 82565; 84520

== ENCOUNTER → 2021-03-28 12:37 | Outpatient (CLI) | payer MEDICARE, SELFPAY ==
--- NOTE | 2021-03-28 12:41 | CT_ITS ---
PROCEDURE: CT CHEST W CON CLINCAL INDICATION: F/U PULMONARY NODULES History of breast cancer, follow-up pulmonary nodule COMPARISON: CT CT CHEST W CON from 03/16/[address] CHEST WO CON from 12/25/2020 TECHNIQUE: IV Contrast: 75ml Isovue 370 Axial images obtained with sagittal and coronal reformats. All CT scans at the facility use one or more dose reduction, viz: automated exposure control, ma/kV adjustment per patient size (including targeted exams where dose is matched to indication, i.e. head), or iterative reconstruction technique. FINDINGS: No mediastinal or hilar mass or adenopathy. Diffuse edematous changes are present in the left breast as before with surgical clips in the upper outer left breast. Previously noted new nodule in the right upper lobe anteriorly is once again noted 10/27 measuring approximately 6 mm not significantly changed. Additional right upper lobe nodule at 4 mm 36 unchanged. There does appear to be a new nodular density at 4 mm in the right middle lobe is 54. Stable 3 mm nodule right lower lobe 58. Calcified granuloma is present in the left lower lobe. No pleural effusions. No acute bony anomalies. IMPRESSION: Persistent right upper lobe pulmonary nodules not significantly changed with a new 4 mm nodule in the right lower lobe. Cannot exclude the possibility of metastatic disease. Continued follow-up suggested. Postsurgical changes with edema of the left breast. Dictated by: Terell Rodgers MD 03/29/2021 11:08 Terell Rodgers MD in [facility] 03/29/2021 11:08
== END ==
PROVIDERS: PCP Family Medicine; Visit Provider Family Medicine
DX: R91.1 Solitary pulmonary nodule (principal)
CPT/HCPCS: 71260; Q9967

== ENCOUNTER → 2021-07-19 10:09 | Outpatient (CLI) | payer MEDICARE, SELFPAY ==
--- NOTE | 2021-07-19 10:13 | MM_ITS ---
PROCEDURE INFORMATION: Exam: MG Bilateral Screening 3D Mammography Exam date and time: 07/19/2021 10:13 AM Age: 71 years old Clinical indication: Encounter for screening mammogram for malignant neoplasm of breast . History of bilateral breast cancer TECHNIQUE: Imaging protocol: Bilateral screening tomosynthesis and 2D mammography including computer-aided detection (CAD) when performed. COMPARISON: 1. MG MM NEEDLE LOC LT 06/20/2020 11:15 AM 2. MG MM CLIP PLACEMENT LT 04/24/2020 2:40 PM FINDINGS: MAMMOGRAPHY: Breast composition: The breast tissue is composed of scattered areas of fibroglandular density. Mass: None. Architectural distortion: Stable post operative architectural distortion in the right lower inner quadrant due to prior lumpectomy for carcinoma. Post operative architectural distortion in the left upper outer quadrant due to interval lumpectomy for carcinoma. Calcifications: No suspicious calcifications. Asymmetric density: None. Skin thickening: Diffuse skin thickening and increased stromal markings on the left are compatible with radiation change Axillary adenopathy: None. IMPRESSION: No mammographic evidence of malignancy. Annual screening is recommended unless otherwise clinically indicated. ASSESSMENT: BI-RADS Category 2: Benign
== END ==
PROVIDERS: PCP Family Medicine; Visit Provider Family Medicine
DX: Z12.31 Encounter for screening mammogram for malignant neoplasm of breast (principal)
CPT/HCPCS: 77063; 77067

== ENCOUNTER → 2022-01-22 13:22 | Outpatient (CLI) | payer MEDICARE, SELFPAY ==
--- NOTE | 2022-01-22 13:22 | CT_ITS ---
FINAL REPORT TECHNIQUE: Axial CT images were performed from the lung apices through the upper abdomen. Coronal reformats were submitted. This study was performed with techniques to keep radiation doses as low as reasonably achievable (ALARA). Individualized dose reduction techniques using automated exposure control or adjustment of mA and/or kV according to the patient's size were employed. CLINICAL HISTORY: Nodule follow-up COMPARISON: 03/28/2021 FINDINGS: There is moderate coronary artery calcification. Postoperative change is seen in the left breast and left axilla. There is left breast skin thickening which appears stable. There is no axillary adenopathy. There is no hilar or mediastinal mass or adenopathy. Heart size is normal. There is no pericardial or pleural effusion. Note is made of mild emphysema. The anterior right upper lobe nodule has resolved. There is a 2nd, 4 mm nodule in the medial right upper lobe which is stable. This is well seen on image number 31 there is a 4 mm nodule in the medial right lower lobe, stable. This is well seen on image 53. There is a calcified granuloma in the left lower lobe. There is left lower lobe atelectasis or scar. The patient is status post cholecystectomy. IMPRESSION: Resolved anterior right upper lobe nodule. Other stable nodules in the right lung. Recommend additional follow-up in 12 months. Postoperative and post treatment changes in left breast. Reviewed, Interpreted and Dictated by Sukhdev Quintana III, MD Transcribed by Stefani Fisher Authenticated and [facility]
== END ==
PROVIDERS: PCP Family Medicine; Visit Provider Internal Medicine Pulmonary Disease
DX: R91.8 Other nonspecific abnormal finding of lung field (principal)
CPT/HCPCS: 71250; 94060; 94618; 94726; 94729

== ENCOUNTER → 2022-07-24 08:31 | Outpatient (CLI) | payer MEDICARE, SELFPAY ==
[2022-07-24 10:11] LABS: Alanine Aminotransferase 15 U/L (12-78); Albumin/Globulin Ratio 1.7 (1.1-1.8); Alkaline Phosphatase 115 U/L (38-126); Anion Gap 11.8 mEq/L (5-15); Aspartate Amino Transferase 22 U/L (14-36); Bilirubin,Total 0.2 mg/dl (0.2-1.3); Blood Urea Nitrogen 18 mg/dl (7-17); Calcium 9.3 mg/dl (8.4-10.2); Carbon Dioxide 25 mmol/L (22.0-30.0); Chloride 105 mmol/L (98-107); Chol/HDL Ratio 3.5 (1-3.5); Cholesterol 147 mg/dl (140-200); Estimated Glomerular Filt Rate 55 ml/min (>60); GFR (African American) 66 ML/MIN (>60); Globulin 2.4 g/dL (1.3-3.2); Glucose 102 mg/dl (74-100); HDL Cholesterol 42 mg/dl (40-60); Potassium 3.8 mmoL/L (3.5-5.1); Sodium 138 mmol/L (136-145); Total Protein,Serum 6.4 g/dl (6.3-8.2); Triglycerides 161 mg/dl (30-150); VLDL Cholesterol 32 mg/dL (0-40)
[2022-07-24 10:22] LABS: Direct LDL Cholesterol 62.41 mg/dL (100-129)
== END ==
PROVIDERS: PCP Family Medicine; Visit Provider Family Medicine
DX: I10 Essential (primary) hypertension (principal); E03.9 Hypothyroidism, unspecified; E78.5 Hyperlipidemia, unspecified
CPT/HCPCS: 36415; 80053; 80061; 84443

== ENCOUNTER → 2022-10-13 09:46 | Outpatient (CLI) | payer MEDICARE, SELFPAY ==
--- NOTE | 2022-10-13 09:55 | MM_ITS ---
PROCEDURE INFORMATION: Exam: MG Bilateral Screening 3D Mammography Exam date and time: 10/13/2022 9:50 AM Age: 72 years old Clinical indication: Screening examination . History of bilateral breast cancer.Positive family history of breast cancer TECHNIQUE: Imaging protocol: Bilateral Screening tomosynthesis and 2D mammography including computer-aided detection (CAD) when performed. COMPARISON: 1. MG MM DIG SCREENING MAMM BI W/CAD 07/19/2021 10:13 AM 2. MG MM NEEDLE LOC LT 06/20/2020 11:15 AM FINDINGS: MAMMOGRAPHY: Breast composition: There are scattered areas of fibroglandular density. Mass: None. Architectural distortion: Stable post operative architectural distortion in the left upper outer quadrant and right lower inner quadrant due to prior bilateral lumpectomies for carcinoma. Calcifications: No suspicious calcifications. Asymmetric density: None. Skin thickening: Diffuse skin thickening and increased stromal markings on the left due to radiation change Axillary adenopathy: None. IMPRESSION: No mammographic evidence of malignancy. Annual screening is recommended unless otherwise clinically indicated. ASSESSMENT: BI-RADS Category 2: Benign
== END ==
PROVIDERS: PCP Family Medicine; Referring Provider Family Medicine; Visit Provider Family Medicine
DX: Z12.31 Encounter for screening mammogram for malignant neoplasm of breast (principal)
CPT/HCPCS: 77063; 77067

== ENCOUNTER → 2023-01-13 14:35 | Outpatient (CLI) | payer MEDICARE, SELFPAY ==
--- NOTE | 2023-01-13 14:35 | CT_ITS ---
FINAL REPORT CLINICAL HISTORY: lung cancer screening CURRENT SMOKER 1PPD X40 YEARS COMPARISON: January 2022 FINDINGS: Low-Dose Chest CT CTDI vol (mGy): 2.90 DLP (mGy-cm): 100.03 Axial images were obtained from the lung apex to the mid abdomen by computed tomography. Low-dose protocol was utilized. FINDINGS: CHEST: There is no axillary adenopathy. There is no hilar or mediastinal adenopathy. The heart is proper size. There is no pericardial or pleural effusion. Limited images of the upper abdomen are unremarkable. Lung window images demonstrate a stable right upper lobe nodule near the minor fissure on image 35. A 3 mm right lower lobe nodule on image 56 medially is unchanged. There is left lower lobe scar. There is no new mass or pulmonary nodule. There is marked skin thickening of the left breast with changes from left axillary nela dissection. IMPRESSION: Stable right lung nodules. Lung RADS category 2. Recommend 12 month follow-up low-dose chest CT. Reviewed, Interpreted and Dictated by Trey Davidson MD Transcribed by Miguel Verdugo Authenticated and . [facility]
== END ==
PROVIDERS: PCP Family Medicine; Visit Provider Internal Medicine Pulmonary Disease
DX: Z87.891 Personal history of nicotine dependence (principal); Z12.2 Encounter for screening for malignant neoplasm of respiratory organs
CPT/HCPCS: 71271

== ENCOUNTER → 2023-03-09 11:19 | Outpatient (CLI) | payer MEDICARE, SELFPAY ==
[2023-03-09 16:02] LABS: Ferritin 90.1 ng/ml (11.1-264)
== END ==
PROVIDERS: PCP Family Medicine; Visit Provider Specialist
DX: G89.29 Other chronic pain (principal); M25.561 Pain in right knee; M25.562 Pain in left knee
CPT/HCPCS: 36415; 82728

== ENCOUNTER → 2023-06-19 08:43 | Outpatient (CLI) | payer MEDICARE, SELFPAY ==
--- NOTE | 2023-06-19 08:48 | XR_ITS ---
FINAL REPORT TECHNIQUE: Bone densitometry calculations of the lumbar spine and left hip were obtained. CLINICAL HISTORY: OSTEOPENIA COMPARISON: None FINDINGS: Using L1-4, the bone mineral density of the spine is 0.856 g/cm2, corresponding to T-score of -1.7 and a Z score of 0.4. This is within the range of osteopenia. Using the left hip, the bone mineral density of the femoral neck is 0.621 g/cm2, corresponding to a T-score of -2.1 and a Z-score of -0.2. This is within the range of osteopenia. FRAX 10 year fracture risk is 3.8% for a hip fracture and 12% for a major osteoporotic fracture. NOTE: T-score: Standard deviation compared with peak bone mass of young adult mean. *Following the recommendations of the International Society of Bone densitometry, classification of hip BMD is based on the lower of two T-scores; total hip or femoral neck. IMPRESSION: 1. Bone mineral density of the lumbar spine within the range of osteopenia. 2. Bone mineral density of the left femoral neck within the range of osteopenia. Reviewed, Interpreted and Dictated by Nuris Fournier MD Transcribed by Candelaria Hodges Authenticated and [facility]
== END ==
PROVIDERS: PCP Family Medicine; Visit Provider Family Medicine
DX: M85.89 Other specified disorders of bone density and structure, multiple sites (principal)
CPT/HCPCS: 77080

== ENCOUNTER 2024-01-13 13:48 | Outpatient (CLI) | payer MEDICARE, SELFPAY ==
--- NOTE | 2024-01-13 13:53 | MM_ITS ---
PROCEDURE INFORMATION: Exam: MG Bilateral Screening 3D Mammography Exam date and time: 01/13/2024 1:46 PM Age: 73 years old Clinical indication: Screening mammogram. Left lumpectomy for breast cancer 06/20/2020. History of radiation therapy TECHNIQUE: Imaging protocol: Bilateral Screening tomosynthesis and 2D mammography including computer-aided detection (CAD) when performed. COMPARISON: 1. MG MM DIG SCREENING MAMM BI W/CAD 10/13/2022 9:50 AM 2. MG MM DIG SCREENING MAMM BI W/CAD 07/19/2021 10:13 AM 3. MG MM NEEDLE LOC LT 06/20/2020 11:15 AM 4. MG MM CLIP PLACEMENT LT 04/24/2020 2:40 PM FINDINGS: MAMMOGRAPHY: Breast composition: There are scattered areas of fibroglandular density. Mass: None. Architectural distortion: No new or suspicious architectural distortion. Calcifications: No new or suspicious calcifications are present Asymmetric density: No new or suspicious asymmetric density is present Skin thickening: Post radiotherapeutic skin thickening is present on the left. Axillary adenopathy: None. Other findings: There are postoperative findings on the left. IMPRESSION: No mammographic evidence of malignancy. Recommend annual screening mammography unless otherwise clinically indicated. ASSESSMENT: BI-RADS category 2: Benign.
== END 2024-01-13 23:59 | disposition home or self-care (01) ==
LOC: RAD 13:49
PROVIDERS: PCP Family Medicine; Visit Provider Family Medicine
DX: Z12.31 Encounter for screening mammogram for malignant neoplasm of breast (principal); Z85.3 Personal history of malignant neoplasm of breast
CPT/HCPCS: 77063; 77067

== ENCOUNTER 2024-01-19 13:44 | Outpatient (CLI) | payer MEDICARE, SELFPAY ==
--- NOTE | 2024-01-19 13:48 | CT_ITS ---
FINAL REPORT TECHNIQUE: Thin section axial images were obtained from the lung apices to the upper abdomen by computed tomography. Reformatted images were obtained and reviewed. This study was performed with techniques to keep radiation doses al low as reasonably achievable (ALARA). Individualized dose reduction techniques using automated exposure control or adjustment of mA and/or kV according to the patient's size were employed. CLINICAL HISTORY: H/O TOBACCO USE smoker, 1 ppd x 40 years COMPARISON: 01/13/2023 FINDINGS: CHEST CT LOW DOSE 74-year-old female, current smoker, [id number] history. CTDI vol (mGy): 2.9 DLP (mGy-cm): 105.77 There is no axillary adenopathy. There is no mediastinal or hilar mass or adenopathy. The heart is normal in size. Moderate coronary artery calcifications are present. There is no pericardial or pleural effusion. There is mild emphysema and mild pulmonary scarring. Lung window images demonstrate there is a 4 mm right upper lobe nodule seen on image #36, stable. There is another 3 mm right lower lobe nodule best seen on image #59, also stable. There are several other less than 5 mm in size nodules seen bilaterally, all of which are stable. Calcified granuloma is present in the left lower lobe. There are postoperative changes present in the left anterior chest wall, with soft tissue thickening identified. Limited images of the upper abdomen reveal surgical resection of the gallbladder. IMPRESSION: Lung-RADS category 1. Recommend 12 month follow up low dose chest CT. Reviewed, Interpreted and Dictated by Sukhdev Quintana III, MD Transcribed by Ana Sequeira Authenticated and [facility]
== END 2024-01-19 23:59 | disposition home or self-care (01) ==
LOC: RAD 13:44
PROVIDERS: PCP Family Medicine; Visit Provider Family Medicine
DX: R91.1 Solitary pulmonary nodule (principal); F17.210 Nicotine dependence, cigarettes, uncomplicated
CPT/HCPCS: 71271

== ENCOUNTER 2024-05-19 09:49 | Outpatient (CLI) | payer MEDICARE, SELFPAY ==
[2024-05-19] MEDS: ALBUTEROL 0.083% 2.5 MG/3 ML NEB IH (10:31)
== END 2024-05-19 23:59 | disposition home or self-care (01) ==
LOC: RT 09:50
PROVIDERS: PCP Family Medicine; Visit Provider Internal Medicine Pulmonary Disease
DX: R06.09 Other forms of dyspnea (principal)
CPT/HCPCS: 94060; 94618; J7613

== ENCOUNTER 2024-06-27 13:39 | Outpatient (CLI) | payer MEDICARE, SELFPAY ==
--- NOTE | 2024-06-27 13:43 | XR_ITS ---
FINAL REPORT CLINICAL HISTORY: cough, smoker, copd FINDINGS: 2 views of the chest were obtained . The heart is normal in size. The mediastinum is within normal limits. There are chronic changes seen bilaterally with hyperinflation. There is no pneumothorax. Osseous structures are unremarkable. Surgical clips are noted in the left axilla. IMPRESSION: Pulmonary hyperinflation consistent with obstructive airways disease. Reviewed, Interpreted and Dictated by Jimi Martinez MD Transcribed by Madisyn Bauer Authenticated and [facility]
== END 2024-06-27 23:59 | disposition home or self-care (01) ==
LOC: RAD 13:41
PROVIDERS: PCP Family Medicine; Visit Provider Internal Medicine Pulmonary Disease
DX: R05.9 Cough, unspecified (principal)
CPT/HCPCS: 71046

== ENCOUNTER 2024-06-27 15:22 | Emergency (ER) | payer MEDICARE, SELFPAY ==
[2024-06-27] VITALS (9 sets, daily range): BP systolic 120–140; BP diastolic 70–95; PULSE 77–95; RESP 16–22; TEMP 36.6; O2SAT 92–97; BMI 30.9
--- NOTE | 2024-06-27 15:32 | ECG_ITS ---
APPROVED REPORT Exam: Resting ECG HR:77 bpm ECG Measurements Heart Rate 77 AXES ID 161 P 70 QRSd 77 QRS 87 QT 377 T 64 QTc 409 Conclusion SINUS RHYTHM LOW QRS VOLTAGE IN PRECORDIAL LEADS [QRS DEFLECTION < 1.0 mV IN CHEST LEADS] BORDERLINE ECG Electronically signed by : DANNI WAGNER, 06/30/2024 07:41:48
--- NOTE | 2024-06-27 15:55 | ED_ITS ---
Discharge Plan Disposition Chief Complaint: PAIN Prescriptions Prescriptions: No Action nicotine (polacrilex) 4 mg mini lozenge 4 mg buccal Q6H PRN (Reason: nicotine cravings) Qty: 72 0RF potassium chloride 10 mEq tablet extended release 10 meq PO DAILY amlodipine-valsartan 5-160 mg tablet 1 tab PO DAILY melatonin 10 mg capsule 10 mg PO HS PRN (Reason: Sleep) albuterol sulfate 90 mcg/actuation HFA aerosol inhaler 2 inh INHALATION QID PRN (Reason: shortness of breath or wheezing) 90 Days Qty: 8.5 3RF doxycycline monohydrate 100 mg capsule 100 mg PO BID Qty: 60 0RF Anoro Ellipta 62.5-25 mcg/actuation blister with device See Rx Instructions .ROUTE .COMPLEX Qty: 180 3RF Dose Instruction: INHALE 1 PUFF BY MOUTH EVERY DAY Rx Instructions: INHALE 1 PUFF BY MOUTH EVERY DAY ipratropium-albuterol 0.5 mg-3 mg(2.5 mg base)/3 mL solution for nebulization 3 ml inhalation QID PRN (Reason: shortness of breath or wheezing) 90 Days Qty: 270 3RF triamterene-hydrochlorothiazid 1 EACH tablet 1 each PO DAILY levothyroxine 112 mcg tablet 112 mcg PO DAILY Patient Comments: TAKE ONE TABLET BY MOUTH EVERY DAY Referrals Follow up/Referrals: Trey Evans MD [Primary Care Provider] - See instructions Activity Restrictions/Add. Instructions Additional Instructions/Restrictions: Call your family doctor to establish care for this visit to the emergency department and schedule follow-up within 48 hours to ensure improvement. If you have any worsening of your condition or any other concerning signs or symptoms, return to the emergency department or your primary care doctor for further evaluation. Talk to pulmonology about left lung mass. Clinical Impressions Clinical Impression: Chest wall pain, Mass of left lung Print Language Print Language: Latvian Discharge ED Provider: Shahab Murillo HPI General Chief Complaint: PAIN Stated Complaint: sent by Yanet PATTON Time Seen by Provider: 06/27/24 15:42 History of Present Illness HPI narrative: Please note that above description of symptoms, in this electronic medical record under categorization of recalled from ER triage doctor by RN are reflective of an initial nursing assessment, however, is not reflective of my full history and physical exam that was personally taken and clarified. Consequentially, this preceding description of symptoms, which may include the patient's categorized chief complaint in the EMR, do not reflect my personal clinical impression, and the ultimate description of history of present illness and patient stated complaints should be deferred to this section of the note. Unless stated otherwise or congruent with this section of the note, additional signs, symptoms, or incongruence should be interpreted as inaccurate with my clinical impression. Related Data Home Medications ?Medication ?Instructions ?Recorded ?Confirmed potassium chloride 10 mEq 10 meq PO DAILY Supplement 09/10/17 06/27/24 tablet,extended release triamterene 37.5 1 each PO DAILY Hypertension 06/07/18 06/27/24 mg-hydrochlorothiazide 25 mg tablet amlodipine 5 mg-valsartan 160 mg 1 tab PO DAILY High blood pressure 05/17/20 06/27/24 tablet melatonin 10 mg capsule 10 mg PO HS PRN Sleep 05/17/20 06/27/24 levothyroxine 112 mcg tablet 112 mcg PO DAILY THYROID 03/05/23 06/27/24 Previous Rx's ?Medication ?Instructions ?Recorded umeclidinium 62.5 mcg-vilanterol See Rx Instructions .Route 08/06/23 25 mcg/actuation powdr for .COMPLEX #180 blisters inhalation (Anoro Ellipta) albuterol sulfate 90 mcg/actuation 2 inh inhalation QID PRN shortness 02/17/24 aerosol inhaler of breath or wheezing 90 days #8.5 grams nicotine (polacrilex) 4 mg buccal 4 mg buccal Q6H PRN nicotine 05/23/24 mini lozenge cravings #72 ea ipratropium 0.5 mg-albuterol 3 mg 3 ml inhalation QID PRN shortness 06/20/24 (2.5 mg base)/3 mL nebulization of breath or wheezing 90 days #270 soln mL doxycycline monohydrate 100 mg 100 mg PO BID #60 caps 06/27/24 capsule Allergies Allergy/AdvReac Type Severity Reaction Status Date / Time No Known Allergies Allergy Verified 06/27/24 15:01 [facility] Disclaimer: The information contained in this section may have been updated after the patient was seen, as this information can be updated by other users. Medical History Tobacco abuse disorder Advised to consider smoking cessation Tobacco abuse counseling Screening for lung cancer Pulmonary emphysema Multiple pulmonary nodules Smoking greater than 30 pack years Dyspnea on exertion History of breast cancer COPD (chronic obstructive pulmonary disease) Surgical History History of lumpectomy History of breast biopsy Family History Other Cancer Heart attack Hyperlipidemia Hypertension Social History Smoking Status: Current every day smoker tobacco type: cigarettes packs per day: 1 second hand exposure: No alcohol intake: never substance use type: denies use current occupational status: retired Travel in the last 8 weeks: None household members: none housing: house marital status: current occupational exposures/hazards: No caffeine: Yes Other Medical History Have you received the Flu Vaccine for this season: No Have you received the Pneumonia Vaccine: Yes ROS Obtained: Yes All systems reviewed & no additional complaints except as documented Physical Exam General General appearance: alert Neck Neck exam: Present trachea midline Chest Chest inspection: Present normal inspection and symmetric chest wall rise Respiratory Respiratory exam: Present wheezes; Absent respiratory distress, stridor, accessory muscle use or prolonged expiratory phase Cardiovascular Cardiovascular exam: Present regular rate, normal rhythm and other (Pulses equal and symmetric in upper and lower extremities) Extremities Exam Extremities exam: Absent edema Neurological Exam Neurological exam: Present alert, oriented X3 and CN II-XII intact Skin Skin exam: Present warm and dry; Absent cyanosis, diaphoresis or pallor HEART Score HEART Score HEART Score assessment performed?: Yes History (anamnesis): Slightly suspicious ECG: Normal Age: >65 years Risk factors: 1-2 risk factors Troponin: </= normal limit HEART Score: 3 Critical Care Critical Care Time Critical Care Time: No Medical Decision Making Medical Records Medical records reviewed: Yes I reviewed the patient's medical records. Simon Inquiry Pt receiving controlled substance: No Simon was queried for this patient: No Vital Signs Vital Signs: 06/27/24 15:37 06/27/24 15:45 06/27/24 16:30 Temperature 97.8 F Temperature Source Oral Pulse Rate 87 89 Pulse Rate [Left] 80 Respiratory Rate 22 Blood Pressure 126/79 140/87 Blood Pressure [Right Arm] 126/79 Blood Pressure Mean [Right Arm] 94 Blood Pressure Source [Right Arm] Automatic Cuff Blood Pressure Position [Right Arm] Sitting 02 Sat by Pulse Oximetry 96 95 95 Oxygen Delivery Method Nasal Cannula Oxygen Flow Rate (LPM) 2.5 06/27/24 17:00 Temperature Temperature Source Pulse Rate 77 Pulse Rate [Left] Respiratory Rate Blood Pressure 120/76 Blood Pressure [Right Arm] Blood Pressure Mean [Right Arm] Blood Pressure Source [Right Arm] Blood Pressure Position [Right Arm] 02 Sat by Pulse Oximetry 97 Oxygen Delivery Method Oxygen Flow Rate (LPM) Lab Data Labs: Lab Results 06/27/24 15:42: WBC 10.4, RBC 5.23, Hgb 14.1, Hct 42.8, MCV 81.8, MCH 27.0, MCHC 33.0, RDW 15.0, Plt Count 362, MPV 7.1 L, Neut % (Auto) 73.7, Lymph % (Auto) 15.9, Bowman % (Auto) 4.4, Eos % (Auto) 5.2, Baso % (Auto) 0.8, Neut # (Auto) 7.7, Lymph # (Auto) 1.7, Bowman # (Auto) 0.5, Eos # (Auto) 0.5 H, Baso # (Auto) 0.1, PT 9.8 L, INR 0.86 L, APTT 29.3, D-Dimer 1.08 H, Sodium 134 L, Potassium 3.8, C hloride 96 L, Carbon Dioxide 30, Anion Gap 11.8, BUN 21 H, Creatinine 1.00, Estimated Creat Clear 66, Estimated GFR 55 L, Est GFR ( Amer) 66, Glucose 109 H, Calcium 9.2, Total Bilirubin 0.5, AST 22, ALT 13, Alkaline Phosphatase 101, Troponin I < 0.01, NT-Pro-B Natriuret Pep 161 H, Total Protein 7.2, Albumin 4.4, Globulin 2.8, Albumin/Globulin Ratio 1.6, Lipase 57 06/27/24 15:53: VBG pH 7.35, VBG pCO2 55.1 H, VBG pO2 54.5 H, VBG HCO3 29.6, VBG Total CO2 31.3 H, VBG O2 Saturation 87.9 H, VBG Base Excess 4.0 H, VBG Lactic Acid 1.1 06/27/24 15:42 06/27/24 15:42 Response Orders (Tests/Meds): ED MEDICATIONS Discontinued Medications Generic Name Dose Route Start Last Admin Trade Name Mekhiq PRN Reason Stop Dose Admin Albuterol/Ipratropium 9 ml 06/27/24 15:57 06/27/24 16:11 Ipratropium/Albuterol 3 Ml Neb IH 06/27/24 15:58 9 ml ONCE ONE Administration Iopamidol 70 ml 06/27/24 17:36 06/27/24 17:43 Iopamidol-370 (76%);100ml Bottle IV 06/27/24 17:37 70 ml ONCE ONE Administration Ketorolac Tromethamine 15 mg 06/27/24 15:51 06/27/24 16:11 Ketorolac 30mg/Ml Vial IV 06/27/24 15:52 15 mg ONCE ONE Administration Methylprednisolone Sodium Succinate 125 mg 06/27/24 15:57 06/27/24 16:11 Methylprednisolone Sod Succ 125mg Vial IV 06/27/24 15:58 125 mg ONCE ONE Administration Sodium Chloride 10 ml 06/27/24 17:36 06/27/24 17:43 Sodium Chloride 0.9% 10ml Syr (Rad Only) IV 06/27/24 17:37 10 ml ONCE ONE Administration Sodium Chloride 50 ml 06/27/24 17:36 06/27/24 17:43 0.9 % Sodium Chloride 50 Ml Vial IV 06/27/24 17:37 50 ml ONCE ONE Administration ORDERS Category Date Time Status CTA Chest [CT angio chest PE protocol] Stat Cat Scan 06/27/24 16:58 Completed Complete Blood Count Auto Diff Stat Lab 06/27/24 15:42 Completed Comprehensive Metabolic Panel Stat Lab 06/27/24 15:42 Completed D-Dimer Stat Lab 06/27/24 15:42 Completed HIV (1&2) Antibody Rapid Stat Lab 06/27/24 15:42 Received Hep C Ab with Reflex to RNA Stat Lab 06/27/24 15:42 Received Lipase Stat Lab 06/27/24 15:42 Completed NT Pro Brain Natriuretic Pep. Stat Lab 06/27/24 15:42 Completed PT INR [Prothrombin Time INR] Stat Lab 06/27/24 15:42 Completed PTT [Activated Partial Thrombo Time] Stat Lab 06/27/24 15:42 Completed Troponin I Q3H Lab 06/27/24 19:00 Ordered Troponin I Q3H Lab 06/27/24 22:00 Ordered Troponin I Stat Lab 06/27/24 15:42 Completed Urinalysis and Microscopic Stat Lab 06/27/24 18:09 Received Venous Blood Gas Stat RT 06/27/24 15:53 Completed MDM Narrative Medical Decision Narrative: 74-year-old tension, hyperlipidemia, COPD 2 1/2 L nasal, CAD presenting with left-sided rib pain. Patient states that she woke up without a couple of days ago. Saw Dr. Sheth today who took an x-ray, was reportedly negative, told to come to the emergency department for further evaluation for blood clot. Patient denies respirophasic chest pain, further shortness of breath, cough, nausea, vomiting, syncope, or any other complaints. Has not taken anything for the pain. She states that it feels better when she lays on it, made worse by nothing in particular other than coughing. History was obtained via conversation with patient. On arrival, patient hemodynamically stable, alert, oriented x4, appropriate, GCS 15, moving all extremities spontaneously, pupils equal and reactive to light. Full physical exam performed and significant for well- appearing female no acute distress. Diffuse bilateral wheezes. Isolated inspiratory wheezes right lower and left lower lung aguilar including over area where patient has having tenderness. Tenderness made worse with deep pressure over ribs. No abdominal tenderness. Abdomen soft, nontender, nondistended. No flank tenderness. Cardiac exam within normal limits. Differential includes intercostal muscle strain, bronchitis, pneumonia, PE, ACS, MD, among others. Patient was given Toradol for symptomatic management and correction of underlying abnormalities. Patient placed on continuous cardiac monitoring and continuous pulse ox with initial blood pressure 126/79, heart rate 80, 96% on 2.50L nasal cannula. Independent interpretation of EKG shows sinus rhythm 77 beats a minute no ST or T wave changes concerning for acute ischemia. AK 161, QRS 77, QTc 4 9. Normal axis. Workup independently interpreted and significant for nonactionable CBC or chemistry. Patient's kidney function normal. BNP within normal limits, troponin negative. Lipase negative.. On independent interpretation of imaging, no acute pulmonary embolus on CT PE. She does have left apical mass. See radiology read for full review of final results. On reevaluation, patient resting comfortably. Given patient presentation, workup, history, this most likely represents pleuritic chest wall pain versus musculoskeletal strain. Because patient at baseline without signs or symptoms of clinical decompensation, deemed appropriate for discharge. Results were relayed to patient who voiced understanding and were agreeable to outpatient management and follow up. I discussed my clinical impression with patient and answered all questions. At this time, the evidence for any other entities in the differential is insufficient to warrant any further testing or ED observation. This was explained as well. Advisory was given that persistent or worsening symptoms require further evaluation. I confirmed the understanding of this discussion. Inventory Control Specialist disclaimer Much of this encounter note is an electronic bead forming machine operator spoken language to printed text. Electronic bead forming machine operator of the spoken language may permit errors. Although I have reviewed the note, some errors may still exist.
--- NOTE | 2024-06-27 15:59 | PC.NURSE ---
I notified resp that there is a VBG in lab for them
[2024-06-27 16:05] LABS: Lactate Venous 1.1 mmol/L (0.4-2.0); VBG HCO3 29.6 mmol/L (23-30); VBG Oxygen Saturation 87.9 % (50-70); VBG PH 7.35 mmol/L (7.31-7.41); VBG PO2 54.5 mmol/L (28-40); VBG Total CO2 31.3 mmol/L (23-27)
[2024-06-27 16:06] LABS: Basophils # 0.1 K/mm3 (0-0.2); Basophils % 0.8 % (0.1-2.0); Eosinophils # 0.5 K/mm3 (0.0-0.4); Eosinophils % 5.2 % (0.1-12.0); Hematocrit 42.8 % (37.0-47.0); Hemoglobin 14.1 g/dL (12.2-16.2); Lymphocytes # 1.7 K/mm3 (0.7-4.5); Lymphocytes % 15.9 % (10-50); Mean Corpuscular Volume 81.8 fl (81-99); Mean Platelet Volume 7.1 fl (7.4-10.4); Monocytes # 0.5 K/mm3 (0.1-1.0); Monocytes % 4.4 % (1.7-9.3); Neutrophils # 7.7 K/mm3 (1.8-7.8); Neutrophils % 73.7 % (37.0-80.0); Platelet Count 362 K/mm3 (142-424); Red Blood Count 5.23 M/mm3 (4.20-5.40); White Blood Count 10.4 K/mm3 (4.8-10.8)
[2024-06-27] MEDS: IPRATROPIUM/ALBUTEROL 3 ML NEB 9 ML IH (16:11)
[2024-06-27] MEDS: METHYLPREDNISOLONE SOD SUCC 125MG VIAL 125 MG IV (16:11)
[2024-06-27] MEDS: KETOROLAC 30MG/ML VIAL 15 MG IV (16:11)
[2024-06-27 16:13] LABS: INR 0.86 (0.9-1.1); Prothrombin Time 9.8 seconds (10.1-12.5)
[2024-06-27 16:15] LABS: Activated Partial Thrombo Time 29.3 seconds (22.8-30.6)
[2024-06-27 16:21] LABS: Albumin Level 4.4 g/dl (3.5-5.0); Chloride 96 mmol/L (98-107); Sodium 134 mmol/L (136-145)
[2024-06-27 16:22] LABS: Potassium 3.8 mmoL/L (3.5-5.1)
[2024-06-27 16:23] LABS: VBG PCO2 55.1 mmol/L (35-51)
[2024-06-27 16:24] LABS: Alanine Aminotransferase 13 U/L (12-78); Alkaline Phosphatase 101 U/L (38-126); Anion Gap 11.8 mEq/L (5-15); Aspartate Amino Transferase 22 U/L (14-36); Bilirubin,Total 0.5 mg/dl (0.2-1.3); Blood Urea Nitrogen 21 mg/dl (7-17); Carbon Dioxide 30 mmol/L (22.0-30.0); Creatinine Clearance Estimated 66 mL/min (50-200); Estimated Glomerular Filt Rate 55 ml/min (>60); GFR (African American) 66 ML/MIN (>60)
--- NOTE | 2024-06-27 16:24 | PC.NURSE ---
VBG RESULTS PH 7.34, CO2 55, PO2 54, BICARB 29 DR RUTLEDGE NOTIFIED
[2024-06-27 16:25] LABS: Albumin/Globulin Ratio 1.6 (1.1-1.8); Calcium 9.2 mg/dl (8.4-10.2); Globulin 2.8 g/dL (1.3-3.2); Glucose 109 mg/dl (74-100); Lipase 57 U/L (23-300); Total Protein,Serum 7.2 g/dl (6.3-8.2)
[2024-06-27 16:33] LABS: NT Pro Brain Natriuretic Pep. 161 pg/mL (0-125)
[2024-06-27 16:38] LABS: D-Dimer 1.08 ug/mL (0.0-0.5)
[2024-06-27 16:42] LABS: Troponin I < 0.01 ng/ml (0.00-0.034)
--- NOTE | 2024-06-27 16:58 | CT_ITS ---
PROCEDURE INFORMATION: Exam: CTA Chest With Contrast Exam date and time: 06/27/2024 5:32 PM Age: 74 years old Clinical indication: Pain; Left-sided; Additional info: L sided lateral wall pain hypoxemia TECHNIQUE: Imaging protocol: Computed tomographic angiography of the chest with contrast. Exam focused on the arteries. 3D rendering (Not supervised by radiologist): MIP and/or 3D reconstructed images were created by the technologist. Radiation optimization: All CT scans at this facility use at least one of these dose optimization techniques: automated exposure control; mA and/or kV adjustment per patient size (includes targeted exams where dose is matched to clinical indication); or iterative reconstruction. Contrast material: ISO 370; Contrast volume: 80 ml; Contrast route: INTRAVENOUS (IV); COMPARISON: CT LUNG SCREENING 01/19/2024 2:01 PM FINDINGS: Pulmonary arteries: Normal. No pulmonary emboli. Aorta: Unremarkable. No aortic aneurysm. No aortic dissection. Lungs: There has been interval increase in size of a lobulated 14 mm noncalcified left apical pulmonary nodule. The appearance is highly suspicious for malignancy. Other scattered subcentimeter nodules in both lungs appear stable and benign. No acute infiltrate. Mild lingular atelectasis/scarring appears stable. Pleural spaces: Unremarkable. No pneumothorax. No pleural effusion. Heart: Unremarkable. No cardiomegaly. No pericardial effusion. Lymph nodes: Unremarkable. No enlarged lymph nodes. Kidneys: Partially visualized simple appearing left renal cyst. Bones/joints: Pgky-zx-cihysjil multilevel degenerative disc changes throughout the thoracic spine. No vertebral body compression. No acute fracture. Soft tissues: Posttherapy changes of the left breast again noted. Soft tissues otherwise unremarkable. IMPRESSION: Highly suspicious 14 mm left apical pulmonary nodule has increased in size from previous. Consider non-emergent PET/CT or tissue sampling.(Reference: Fahad) References: Fahad Hutchison, et al. Guidelines for Management of Incidental Pulmonary Nodules Detected on CT Images: From the Fleischner Society 2017. Radiology. 2017;284(1):228-243. COMMENTS: Consistent with the [place] [employer]'s Incidental Findings Committee white paper (J Am Atiya Radiol 2018): Any incidental renal lesion less than 1 cm or classified as too small to characterize, or any incidental cystic renal lesion characterized as simple-appearing, is likely benign. No follow-up imaging is recommended for these lesions per consensus recommendations based on imaging criteria.
[2024-06-27] MEDS: SODIUM CHLORIDE 0.9% 10ML SYR (RAD ONLY) 10 ML IV (17:43)
[2024-06-27] MEDS: IOPAMIDOL-370 (76%);100ML BOTTLE 70 ML IV (17:43)
[2024-06-27] MEDS: 0.9 % SODIUM CHLORIDE 50 ML VIAL IV (17:43)
[2024-06-27 18:20] LABS: Microscopic, Urine URINE MICROSCOPIC (MICROSCOPIC)
[2024-06-27 19:18] LABS: Appearance,Urine CLEAR (Clear); Bilirubin,Urine Negative (Negative); Blood, Urine Negative (Negative); Color,Urine YELLOW (Yellow); Glucose,Urine (UA) Negative (Negative); Ketones,Urine Negative (Negative); Leukocyte Esterase,Urine Negative (Negative); Nitrate,Urine Negative (Negative); Protein,Urine Negative (Negative); Specific Gravity, Urine 1.015 (1.005-1.030); Urobilinogen,Urine 0.2 EU/dl (0.2)
[2024-06-27 20:14] LABS: Bacteria,Urine 2+ /lpf
[2024-06-27 23:32] LABS: HIV (1&2) Antibody Rapid NONREACTIVE (NONREACTIVE)
[2024-06-28 08:21] LABS: HCV Ab Non Reactive (Non Reactive)
== END 2024-06-27 19:19 | disposition home or self-care (01) ==
PROVIDERS: Emergency Provider Emergency Medicine; PCP Family Medicine
DX: R06.02 Shortness of breath (principal); F17.210 Nicotine dependence, cigarettes, uncomplicated; Z79.899 Other long term (current) drug therapy; J44.9 Chronic obstructive pulmonary disease, unspecified
CPT/HCPCS: 71046; 71275; 80053; 81001; 82803; 83690; 83880; 84484; 85025; 85378; 85610; 85730; 86803; 87086; 87389; 93005; 99284; J1885; J2919; J7620; Q9967

== ENCOUNTER 2024-07-25 09:24 | Outpatient (CLI) | payer MEDICARE, SELFPAY ==
--- NOTE | 2024-07-25 09:26 | CT_ITS ---
FINAL REPORT CLINICAL HISTORY: RADICULAR PAIN WORSE ON RIGHT SIDE COMPARISON: LDCT dated 01/19/2024 FINDINGS: CT THORACIC SPINE TECHNIQUE: Thin section axial CT with sagittal and coronal reconstructions This study was performed with techniques to keep radiation doses as low as reasonably achievable, (ALARA). Individualized dose reduction techniques using automated exposure control or adjustment of mA and/or kV according to the patient's size were employed. FINDINGS: No fracture is present. Mild dextroscoliosis is present. No subluxation is noted. No bony canal stenosis is seen. Mild degenerative joint disease is present. There is a 16 mm left upper lobe nodule noted, also seen on the prior LDCT. IMPRESSION: Negative CT evaluation of the thoracic spine for acute bony injury. 16 mm left upper lobe nodule, please refer to prior CT evaluation of the chest for further evaluation. Reviewed, Interpreted and Dictated by Trey Davidson MD Transcribed by Ana Sequeira Authenticated and [facility]
== END 2024-07-25 23:59 | disposition home or self-care (01) ==
LOC: RAD 09:24
PROVIDERS: PCP Family Medicine; Visit Provider Family Medicine
DX: M54.10 Radiculopathy, site unspecified (principal)
CPT/HCPCS: 72128

== ENCOUNTER 2024-08-26 11:51 | Outpatient (CLI) | payer MEDICARE, SELFPAY | END 2024-08-26 23:59 | disposition home or self-care (01) | LOC: RT 11:53 | PROVIDERS: PCP Family Medicine; Visit Provider Internal Medicine Pulmonary Disease | DX: J44.9 Chronic obstructive pulmonary disease, unspecified (principal) | CPT/HCPCS: 94762 ==

== ENCOUNTER 2024-09-06 15:51 | Outpatient (CLI) | payer MEDICARE, SELFPAY ==
--- NOTE | 2024-09-06 16:04 | MR_ITS ---
PROCEDURE INFORMATION: Exam: MR Head Without and With Contrast Exam date and time: 09/06/2024 4:53 PM Age: 74 years old Clinical indication: Condition or disease; PT has lung cancer , checking for mets TECHNIQUE: Imaging protocol: Magnetic resonance imaging of the head without and with contrast. Contrast material: PROHANCE; Contrast volume: 16 ml; Contrast route: IV; COMPARISON: PT P.E.T./CT SKULL BASE TO MID-THIGH 07/04/2024 12:09 PM FINDINGS: Major vascular flow voids at the skull base are preserved. No extra-axial fluid collection. No obstructive hydrocephalus. Age-related volume loss. Mild nonspecific white matter gliosis, probable chronic microvascular ischemia. No midline shift or significant intracranial mass effect. No cerebral edema. No diffusion restriction. No pathologic intracranial enhancement. Jvkv-hq-bloelcbs paranasal sinus disease. No significant mastoid effusion. IMPRESSION: No acute intracranial abnormality.
[2024-09-06 16:11] LABS: Blood Urea Nitrogen 19 mg/dl (7-17); Estimated Glomerular Filt Rate 55 ml/min (>60); GFR (African American) 66 ML/MIN (>60)
[2024-09-06] MEDS: GADOTERIDOL INJ 20ML SYRINGE 16 ML IV (17:30)
[2024-09-06] MEDS: SODIUM CHLORIDE 0.9% 10ML SYR (RAD ONLY) 10 ML IV (17:30)
== END 2024-09-06 23:59 | disposition home or self-care (01) ==
LOC: RAD 15:52
PROVIDERS: PCP Family Medicine; Visit Provider Internal Medicine Medical Oncology
DX: C34.12 Malignant neoplasm of upper lobe, left bronchus or lung (principal); R91.8 Other nonspecific abnormal finding of lung field
CPT/HCPCS: 36415; 70553; 82565; 84520; A9576

== ENCOUNTER 2024-10-20 14:17 | Outpatient (CLI) | payer MEDICARE, SELFPAY ==
[2024-10-20 14:53] LABS: Basophils # 0.1 K/mm3 (0-0.2); Basophils % 0.6 % (0.1-2.0); Eosinophils # 0.4 K/mm3 (0.0-0.4); Eosinophils % 4.4 % (0.1-12.0); Hematocrit 38.8 % (37.0-47.0); Hemoglobin 12.3 g/dL (12.2-16.2); Lymphocytes % 12.4 % (10-50); Mean Corpuscular HGB Conc 31.7 g/dL (31.8-35.4); Mean Corpuscular Hemoglobin 27.4 pg (27.0-31.2); Mean Corpuscular Volume 86.4 fl (81-99); Mean Platelet Volume 9.2 fl (7.4-10.4); Monocytes # 0.6 K/mm3 (0.1-1.0); Monocytes % 7.6 % (1.7-9.3); Neutrophils # 6.2 K/mm3 (1.8-7.8); Neutrophils % 74.8 % (37.0-80.0); Platelet Count 382 K/mm3 (142-424); Red Blood Count 4.49 M/mm3 (4.20-5.40); Red Cell Distribution Width 13.6 % (11.5-17.5); White Blood Count 8.3 K/mm3 (4.8-10.8)
[2024-10-20 15:22] LABS: Alanine Aminotransferase 16 U/L (12-78); Albumin Level 4.3 g/dl (3.5-5.0); Alkaline Phosphatase 89 U/L (38-126); Anion Gap 10.4 mEq/L (5-15); Aspartate Amino Transferase 22 U/L (14-36); Bilirubin,Total 0.2 mg/dl (0.2-1.3); Blood Urea Nitrogen 22 mg/dl (7-17); Calcium 9.9 mg/dl (8.4-10.2); Carbon Dioxide 35 mmol/L (22.0-30.0); Chloride 91 mmol/L (98-107); Estimated Glomerular Filt Rate 71 ml/min (>60); GFR (African American) 85 ML/MIN (>60); Globulin 2.2 g/dL (1.3-3.2); Glucose 80 mg/dl (74-100); Potassium 4.4 mmoL/L (3.5-5.1); Sodium 132 mmol/L (136-145); Total Protein,Serum 6.5 g/dl (6.3-8.2)
[2024-10-20 15:40] LABS: T4 (Thyroxine) 13.8 ug/dl (5.53-11.0)
[2024-10-20 15:54] LABS: Thyroid Stimulating Hormone 0.16 uIU/mL (0.465-4.68)
== END 2024-10-20 23:59 | disposition home or self-care (01) ==
LOC: LAB 14:17
PROVIDERS: PCP Family Medicine; Visit Provider Internal Medicine Medical Oncology
DX: C34.12 Malignant neoplasm of upper lobe, left bronchus or lung (principal); Z79.890 Hormone replacement therapy
CPT/HCPCS: 36415; 80053; 84436; 84443; 85025

== ENCOUNTER 2024-12-06 14:27 | Outpatient (CLI) | payer MEDICARE, SELFPAY ==
--- NOTE | 2024-12-06 14:29 | CT_ITS ---
FINAL REPORT TECHNIQUE: Routine axial images were obtained from the lung apices to below the diaphragm following IV contrast administration. Individualized dose reduction techniques using automated exposure control or adjustment of the mA and/or kV according to the patient size were employed. CLINICAL HISTORY: SOLITARY PULMONARY NODULE COMPARISON: 06/27/2024 FINDINGS: The mediastinal vasculature is well-opacified. There is no significant mediastinal mass or adenopathy. There are multiple surgical clips in the left axilla. There is marked skin thickening and stranding in the left breast. Findings are all likely related to a combination of prior surgery and radiation. The previously noted lobular mass in the left upper lobe is smaller than previous. Mass now measures 11 mm in greatest dimension best seen on image 17 of series 2. The liver is homogeneous. The gallbladder is surgically absent. There is a benign-appearing cyst in the left kidney measuring up to 5.3 x 4.7 cm. There is an old healed or healing posterior left rib fracture. This is best seen on image 42. IMPRESSION: Interval decrease in size in previously noted lobular mass in the left upper lobe, may be due to interval response of therapy. Postsurgical/postradiation changes in the left breast. Recommend continued follow-up.. Reviewed, Interpreted and Dictated by Jimi Martinez MD Transcribed by Stefani Fisher Authenticated and [facility]
--- OUTSIDE RECORDS SUMMARY | 2024-12-06 14:29 | XMS_ITS | Continuity of Care Document ---
Author Organization [facility] Phone Care Team Providers Care Manager Oracle Database Name Role Phone ELSY KEYS Primary Care FARNAZ CAIN Primary Attending FARNAZ CAIN Admitting SABRINA CALDERON Unavailable MEDICATIONS HOME MEDICATIONS Status RXNORM NDC Medication Dose Route Frequency Dates Comments Reported By Updated By Drug Treatment Unknown DISCHARGE MEDICATIONS Status RXNORM NDC Medication Dose Route Frequency Dates Comments Physician Updated By No Discharge Medication Info rmation Available INPATIENT MEDICATIONS Status RXNORM NDC Medication Dose Route Frequency Rat e Quantity Dates Comments Physician Updated By No Inpatient Medication Info rmation Available SOCIAL HISTORY SOCIAL HISTORY SNOMED-CT Social History Element Description Effective Dates Offered Cessation Comment UpdatedBy [id number] Smoking Status Unknown If Ever Smoked SOCIAL HISTORY - Gender Sex: Female SOCIAL HISTORY - Status : status i nformation is not available Intention in Next Year: intention information is not available SOCIAL HISTORY - Sexual Behavior Sexual Orientation Gender Identity SNOMED-CT Description SNO MED -CT Description Activity Level No of Partners Partner Type UpdatedBy Information is not available HEALTH CONCERNS Problems Concern Status Health Concern problem infor mation not available. Smoking Status Status Years Used Consumed packs p er day Health Concern smoking histo ry information not available. Family History Concern Status Health Concern family histor y information not available. ENCOUNTERS ENCOUNTER INFORMATION Reason for Visit RADIATION Admission September 14, 2024 1:00:00 PM [facility] [address] [facility] [id number] Discharge October 08, 2024 4:59:00 AM [facility] DIS CHARGED TO HOME OR SELF CARE ENCOUNTER DIAGNOSES Notes information is not isaiah ilable. Code System Diagnosis Onset Date Diagnosis information is not available. ABSTRACT DIAGNOSES Code System Diagnosis Updated By Z51.0 ICD10 ENCOUNTER FOR AN TINEOPLASTIC RADIATION THERAPY [id number] on October 10, 2024 3:52:44 PM [facility] C34.12 ICD10 MALIGNANT NEOPLA SM OF UPPER LOBE, LEFT BRONCHUS OR LUNG [id number] on October 10, 2024 3:52:45 PM [facility] Z51.0 ICD10 ENCOUNTER FOR AN TINEOPLASTIC RADIATION THERAPY [id number] on October 10, 2024 3:52:45 PM [facility] C34.12 ICD10 MALIGNANT NEOPLA SM OF UPPER LOBE, LEFT BRONCHUS OR LUNG [id number] on October 10, 2024 3:52:45 PM [facility] CARE TEAM Care Manager Oracle Database Role ELSY KEYS Primary Care FARNAZ CAIN Primary Attending FANRAZ CAIN Admitting SABRINA CALDERON Referring CARE TEAM CARE conservation specialist Role on Team Status Start Date End Date Update d By LUDMILA JONES PCP normal August 29, 2024 1:41:27 PM [facility] October 08, 2024 4:59:00 AM [facility] [id number] on August 29, 2024 1:41:27 PM [facility] KVNG SABRINA Maryana Referring normal August 29 1:41:27 PM [facility] October 08, 2024 4:59:00 AM [facility] [id number] on August 29, 2024 1:41:27 PM [facility] ANT JONES Attending normal August 29, 2024 1:41:27 PM [facility] October 08, 2024 4:59:00 AM [facility] [id number] on August 29, 2024 1:41:27 PM [facility] ANT JONES Admitting normal August 29, 2024 1:41:27 PM [facility] October 08, 2024 4:59:00 AM [facility] [id number] on August 29, 2024 1:41:27 PM [facility]
[2024-12-06 14:56] LABS: Blood Urea Nitrogen 19 mg/dl (7-17); Estimated Glomerular Filt Rate 71 ml/min (>60); GFR (African American) 85 ML/MIN (>60)
[2024-12-06] MEDS: IOPAMIDOL-370 (76%);100ML BOTTLE 75 ML IV (15:31)
[2024-12-06] MEDS: SODIUM CHLORIDE 0.9% 10ML SYR (RAD ONLY) 10 ML IV (15:31)
== END 2024-12-06 23:59 | disposition home or self-care (01) ==
LOC: RAD 14:28
PROVIDERS: PCP Family Medicine; Visit Provider Internal Medicine
DX: R91.1 Solitary pulmonary nodule (principal)
CPT/HCPCS: 36415; 71260; 82565; 84520; Q9967

== ENCOUNTER 2025-01-12 14:11 | Outpatient (CLI) | payer MEDICARE, SELFPAY ==
[2025-01-12 15:35] LABS: Blood Urea Nitrogen 19 mg/dl (7-17); Estimated Glomerular Filt Rate 62 ml/min (>60); GFR (African American) 74 ML/MIN (>60)
== END 2025-01-12 23:59 | disposition home or self-care (01) ==
LOC: RAD 14:11
PROVIDERS: PCP Internal Medicine; Visit Provider Internal Medicine
DX: F40.240 Claustrophobia (principal); R91.1 Solitary pulmonary nodule
CPT/HCPCS: 36415; 82565; 84520

== ENCOUNTER → 2025-03-31 10:31 | Outpatient (CLI) | payer MEDICARE, SELFPAY ==
--- OUTSIDE RECORDS SUMMARY | 2024-09-08 11:45 | XMS_ITS ---
Author Organization [facility] Address [address] [facility] [address] [place] [id number] Care Team Providers Care Martial Arts Instructor Name Role Phone Jasen Evans Primary Care Provider Allergies No Known Allergies Results Component Value Reference Range Notes P-Basic Metabolic Panel (BMP ) Reviewed date:09/14/2024 01:09:49 PM Interpretation:satisfactory Performing Lab: Notes/Report: Test performed by [facility] [address] [place] [address] , [address], [place] [address] Mohsen Puckett MD, Electronic System Engineer CLIA: [id number] Sodium 138 135-145 mmol/L Potassium 4.5 3.5-5.3 mmol/L Chloride 96 97-108 mmol/L CO2 29 22-32 mmol/L Glucose 88 65-99 mg/dL BUN 15 8-23 mg/dL Creatinine 1.00 0.50-1.00 mg/dL Calcium 9.6 8.6-10.4 mg/dL eGFR by Creatinine 60 >59 mL/min/1.73m2 REASON FOR VISIT feet are swollen Medications Medication SIG (Take, Route, Frequency, Duration) Notes Start Date End Date Status Potassium Chloride ER 10 MEQ 1 tablet Orally Once a day; Duration: 90 days Active traMADol HCl 50 MG 1 tablet as needed Orally three times a day as needed 07/11/2024 Not-Taking Pramipexole Dihydrochloride 0.5 MG 1 tablet Orally Once a day; Duration: 30 day(s) 07/11/2024 Active clonazePAM 0.5 MG 1 tablet Orally At Bed Time 07/11/2024 Active Furosemide 20 MG 1 tablet Orally Once a day; Duration: 30 day(s) 09/08/2024 Active Anoro Ellipta 62.5-25 MCG/ACT 1 puff(s) inhaled once a day; Duration: 30 day(s) Active Synthroid 125 MCG TAKE 1 TABLET ONCE DAILY; Duration: 90 Active amLODIPine Besylate-Valsartan 5-160 MG TAKE 1 TABLET ONCE DAILY; Duration: 90 Active Triamterene-HCTZ 75-50 MG TAKE 1 TABLET ONCE DAILY; Duration: 90 Active Problems Problem Type SNOMED Code ICD Code Onset Dates Problem Status W/U Status Risk Notes Problem Localized edema (9023406) Localized edema (R60.0) Active confirmed Problem Malignant neoplasm of upper lobe, bronchus or lung (195181443) 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) Active confirmed Vital Signs Blood pressure systolic 130 mm Hg 09/08/19 25 Blood pressure diastolic 84 mm Hg 025 Heart Rate 111 /min 09/08/2024 Height 65 in 09/08/2024 Weight 171 lbs 09/08/2024 BMI 28.45 kg/m2 09/08/2024 Encounters Encounter Location Date Provider Diagnosis [facility] [address] [facility] [address] [place] [address], [place] [phone] 09/08/2024 Jasen Evans Localized edema R60. 0 ; Pulmonary emphysema, unspecified emphysema type J43.9 ; Essential hypertension I10 and 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 C34.12 Assessments Encounter Date Diagnosis (ICD Code) Assessment Notes Treatment Notes Treatment Clinical Notes Section Notes 09/08/2024 Localized edema (ICD-10 - R60.0) 09/08/2024 Pulmonary emphysema, unspecified emphysema type (ICD-10 - J43.9) 09/08/2024 Essential hypertension (ICD-10 - I10) 09/08/2024 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 (ICD-10 - C34.12) Plan Of Treatment Medication Medication Name Sig Start Date Stop Date Notes Furosemide 20 MG 1 tablet Orally Once a day; Duration: 30 day(s) 09/08/2024 Next Appt Details Follow Up: 1 Week, Reason: Provider Name:Jasen Foster er, 04/21/2025 10:30:00 AM, [address], [address], [place], [id number], Progress Notes * MAILE NOVAOB:1950 (74 yo F)Acc No.[id number]:09/08/2024 Progress Notes Patient: JAMMIE REEDER Provider: Jasen Evans M.D. :1950 A ge:74 Y S ex:Female Date:09/08/2024 Address:[address] [place] [address] [place], [id number] Subjective: * Chief Complaints: * 1 . Feet are swollen. * HPI: C ardiology: 74 year old female presents with c/o Leg Edema P t complains of bilateral feet swelling for about 6 weeks. Pt states she does not have any pain but does find it hard to put her shoes on. * ROS: D ERMATOLOGY: no R tootie. n o H carmelita. G ASTROENTEROLOGY: no N ausea. n o V omiting. U ROLOGY: no D ifficulty urinating. n o B lood in urine. * Medical History: H ypertension, Arthritis, 03/2013 biopsy suggestive of Lupus Erythematosis, 2014 Cardiolyte GXT neg, 62% EF, Shingix #1, 09/15/2018. 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 Riley 06/15/2020. * Hospitalization/Major Diagno stic Procedure: H MH -Pneumonia 12/29-, H ER SOA 2017, see above 06/07-06/10/2018. * Family History: F ather: , heart disease. M other: , CHF. P aternal Grand Father: HTN.?Paternal Grand Mother: HTN. M aternal Grand Father: HTN. M aternal Grand Mother: HTN.?1 brother(s) , 1 sister(s) . 1 daughter(s) - healthy. . brother-[place]. Daughter of recurrent breast Ca 2016. * [...] tablet Orally Once a day , Taking Pramipexole Dihydrochloride 0.5 MG Tablet 1 tablet Orally Once a day , Taking clonazePAM 0.5 MG Tablet 1 tablet Orally At Bed Time , Taking amLODIPine Besylate-Valsartan 5-160 MG Tablet TAKE 1 TABLET ONCE DAILY , Taking Triamterene-HCTZ 75-50 MG Tablet TAKE 1 TABLET ONCE DAILY , Taking Synthroid 125 MCG Tablet TAKE 1 TABLET ONCE DAILY , Not-Taking traMADol HCl 50 MG Tablet 1 tablet as needed Orally three times a day as needed , Discontinued Evista 60 MG Tablet 1 tablet Orally Once a day , Discontinued Spironolactone 25 MG Tablet 1 tab(s) orally once a day , Discontinued Breztri Aerosphere 160-9-4.8 MCG/ACT Aerosol 2 puff(s) inhaled 2 times a day , Discontinued Ventolin HFA 108 (90 Base) MCG/ACT Aerosol Solution 2 puff(s) inhaled tid PRN , Discontinued Fenofibrate 160 MG Tablet 1 tab(s) orally once a day , Discontinued Pramipexole Dihydrochloride 0.125 MG Tablet 1 tab(s) orally bedtime , Discontinued Temazepam 15 MG Capsule 1 cap(s) orally at bedtime as needed , Discontinued Doxepin HCl 10 MG Capsule 1 cap(s) orally once daily at bedtime , Medication List reviewed and reconciled with the patient * Allergies: N .K.D.A. Objective: * Vitals: W t:171, Temp:98.0, BP:130/84, HR:111, O2 Sat:88% on 3L 02, Nurse:caty, Ht: 65, BMI:28.45. * Examination: G eneral Examination: General Appearance: [...] B ack: mild dorsal kyphosis. E xtremities: 1 + leg edema. Assessment: * Assessment: 1. L ocalized edema - R60.0 (Primary) 2 . P ulmonary emphysema, unspecified emphysema type - J43.9 3 . E ssential hypertension - I10 4 .?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 - C34.12 Plan: * Treatment: Value Reference Range B UN 15 8-23 - mg/dL * C alcium 9.6 8.6-10.4 - mg/dL * C hloride 96 L 97-108 - mmol/L * C O2 29 22-32 - mmol/L * C reatinine 1.00 0.50-1.00 - mg/dL * G lucose 88 65-99 - mg/dL * P otassium 4.5 3.5-5.3 - mmol/L * S odium 138 135-145 - mmol/L * e GFR by Creatinine 60 >59 - mL/min/1.73m2 * Kelly Meeks 09/14/2024 1:09 :42 PM > , Patient informed of normal results. * Procedure Codes: G 2211 Complex e/[place], [address] PULSE OX * Follow Up: 1 Week * Images: Billing Information: * Visit Code: 42144 Office Visit, Est Pt., Level 3. * Procedure Codes: G2211 Complex e/[place]. [address] PULSE OX. * Electronic signature of J Gilberto Evans MD on 03/31/2025 at 10:34 AM EDT Sign off status: Pending * Provider: Jasen Evans M.D. Date: 0 09/08/2024 Generated for Malia peters/Ti/Genesisitting on: 0 03/31/2025 10:34 AM EDT History and Physical Notes * HPI (History of Present Illness) Category Sub-Category Detail Notes Category Not es Cardiology Leg Edema Pt complains of bilateral feet swelling for about 6 weeks. Pt states she does not have any pain but does find it hard to put her shoes on Examination Category Sub-Category Detail Notes Category Not es General Examination HEENT: unremarkable Heart: RSR Lungs: decreased breath rosaura nds Abdomen: soft and nontender, no organomegaly or masses, obese Extremities: 1+ leg edema General Appearance: NAD, wearing nasal O 2 Skin: normal, no rash. Neurologic Exam: Intact, gait normal Neck: supple, no lymphaden opathy Oral cavity: no lesions, mucosa m oist and WNL, no erythema Peripheral pulses: normal Back: mild dorsal kyphosis Chest: normal shape and exp ansion
--- OUTSIDE RECORDS SUMMARY | 2024-09-15 12:15 | XMS_ITS ---
Author Organization [facility] Address [address] [place] [phone] Care Team Providers Care Lead Supply Worker Name Role Phone Jasen Evans Primary Care [address] [place] [phone] 09/15/2024 Jasen Evans Small cell carcinoma of [...] 4 Weeks, Reason: Provider Name:Jasen Foster er, 04/21/2025 10:30:00 AM, [address], [address], [place], [phone], Progress Notes * AVTAR MAILEOB:1950 (74 yo F)Acc No.[id number]:09/15/2024 Progress Notes Patient: JAMMIE REEDER Provider: Jasen Evans M.D. :1950 A ge:74 Y S ex:Female Date:09/15/2024 Address:[place], [id number] Subjective: * Chief Complaints: * 1 . [...] sister(s) . 1 daughter(s) - healthy. . brother-[place]. Daughter of recurrent breast Ca 2016. * [...] * Images: Billing Information: * Visit Code: 58064 Office Visit, Est Pt., Level 3. * Procedure Codes: 53784 PULSE OX. * Electronic signature of Jasen Evans MD on 03/31/2025 at 10:33 AM EDT Sign off status: Pending * Provider: Jasen Evans M.D. Date: 0 09/15/2024 Generated for Malia peters/Ti/Luizasmitting on: 0 03/31/2025 10:33 AM EDT History and Physical Notes * [...]
--- OUTSIDE RECORDS SUMMARY | 2025-01-20 05:45 | XMS_ITS ---
Author Organization [facility] Address [address] [place] [id number] Care Team Providers Care Heating Element Builder Name Role Phone Jasen Evans Primary Care Provider [phone] Allergies No Known Allergies Results Component Value [...] 122 Performing Lab: Notes/Report: Test performed by [facility]0 [facility] , [address], [place] [address] Mohsen Puckett MD, Branch Administrator CLIA: [id number] Sodium 134 135-145 mmol/L Potassium 4.2 3.5-5.3 [...] Interpretation:Normal Performing Lab: Notes/Report: Test performed by [employer], [address] , [facility], [place] [address] Mohsen Puckett MD, Branch Administrator CLIA: [id number] TSH 2.54 0.43-5.25 mU/L REASON FOR VISIT [...] [address] [place] [id number] 01/20/2025 Jasen Evans Small cell carcinoma of [...] 3 Months, Reason: Provider Name:Jasen Foster er, 04/21/2025 10:30:00 AM, [address] [facility], [address], [place], [id number], Progress Notes * MAILE NOVAOB:1950 (74 yo F)Acc No.[id number]:01/20/2025 Progress Notes Patient: JAMMIE REEDER Provider: Jasen Evans M.D. :1950 A ge:74 Y S ex:Female Date:01/20/2025 Address:[place], [id number] Subjective: * Chief Complaints: * 1 . [...] Diagno stic Procedure: H MH -Pneumonia 12/29-, [facility] ER SOA 2017, see above 06/07-06/10/2018. * Family History: F ather: , heart disease. M other: , CHF. P aternal Grand Father: HTN.?Paternal Grand Mother: HTN. M aternal Grand Father: HTN. M aternal Grand Mother: HTN.?1 brother(s) , 1 sister(s) . 1 daughter(s) - healthy. . brother-[place]. Daughter of recurrent breast Ca 2016. * [...] Essential hypertension - I10 6 . B [place] 28.0-28.9,adult - Z68.28 ? Plan: * Treatment: [...] G 2211 Complex e/[place], [address] CBC WITH AUTO DIFF, 85761 VENIPUNCT, ROUTINE*, G8420 BMI<30 AND >=22 CALC & DOCU, G8950 PREHTN/HTN BP DOC INDCD F/U DOC, G8752 MOST RECENT SYSTOLIC BP < 140MM HG, G8754 MOST RECENT DIASTOLIC BP < 90MM HG * Follow Up: 3 Months * Images: Billing Information: * Visit Code: 59508 Office Visit, Est Pt., Level 4. * Procedure Codes: G2211 Complex e/[place]. [address] CBC WITH AUTO DIFF. 76393 VENIPUNCT, ROUTINE*. G8420 BMI<30 AND >=22 CALC & DOCU. G8950 PREHTN/HTN BP DOC INDCD F/U DOC. G8752 MOST RECENT SYSTOLIC BP < 140MM HG. G8754 MOST RECENT DIASTOLIC BP < 90MM HG. * Electronic signature of Jasen Evans MD on 03/31/2025 at 10:34 AM EDT Sign off status: Pending * Provider: Jasen Evans M.D. Date: 0 01/20/2025 Generated for Malia lorraine/Ti/eTransmitting on: 0 03/31/2025 10:34 AM EDT History [...]
--- OUTSIDE RECORDS SUMMARY | 2025-03-31 10:34 | XMS_ITS | CCD ---
Author Name Interface, [id number] lity Address [facility] [address] [facility] Address [address] [place], [place] [id number] Reason for Visit Social History
--- OUTSIDE RECORDS SUMMARY | 2025-03-31 10:34 | XMS_ITS | Encounter Summary ---
Author Organization Healthcare Address [address] [place] [address] Care Team Providers Care Hand Stone Polisher Name Role Phone System, Provider Not In MD Primary Care Provider Unavailable Encounter Details Date Type Department Care Team ([facility] st Contact Info) Description 06/27/2024 Orders Only External Location [address] [place] [phone] Provider, External Social History Tobacco Use Types Packs/Day Years Used Date Smoking Tobacco: Never Assessed Comments Unknown Sex and Gender Information Value Date Recorded Sex Assigned at Female 08/12/2024 8:42 AM EST Legal Sex Female 8:01 PM EDT Gender Identity Female 08/12/2024 8:42 AM EST Sexual Orientation Not on file documented as of this encounter Plan of Treatment Not on file documented as of this encounter Procedures Procedure Name Priority Date/Time Associated Diagnosis Comments XR OUTSIDE IMAGES 06/27/2024 2:16 PM EST documented in this encounter Results * XR OUTSIDE IMAGES (06/27/2024 2:16 PM EST) Anatomical Region Laterality Modality Radiographic Estrellita ging 06/27/2024 2:16 PM EST us External Provider IMG XR PROCEDURES Final Result documented in this encounter Visit Diagnoses Not on filedocumented in this encounter Care Teams Hand Stone Polisher Relationship Specialty Start Date End Date System, Provider Not In, [address] [place] [address] PCP - General Family Medicine 07/18/24 documented as of this encounter
--- OUTSIDE RECORDS SUMMARY | 2025-03-31 10:34 | XMS_ITS | Clinical Summary ---
Author Organization Healthcare Address [address] [place] [address] Care Team Providers Care Manager Behavior Name Role Phone System, Provider Not In MD Primary Care Provider Unavailable Allergies No known active allergies Medications triamterene-hyd rochlorothiazid e (Maxzide) 75-50 MG tablet TAKE 1 TABLET ONCE DAILY for 90 Active KLOR-CON 10 MEQ ER tablet 4 Active Exforge 5-160 MG tablet Take 1 tablet by mouth Daily. Active levothyroxine (Synthroid, Levoxyl) 125 MCG tablet 1 (one) time each day at the same time. Active albuterol 108 (90 Base) MCG/ACT inhaler Four times a day as needed for shortness of breath or wheezing 4 Active Anoro Ellipta 62.5-25 MCG/ACT aerosol powder aerosol powder 1 (one) time each day at the same time. Active traMADol (Ultram) 50 MG tablet 1 tablet as needed Orally three times a day as needed 4 Active doxycycline (Monodox) 100 MG capsule 1 capsule (100 mg). 4 Active clonazePAM (KlonoPIN) 0.5 MG tablet 1 tablet Orally At Bed Time 4 Active pramipexole (Mirapex) 0.5 MG tablet Take 1 tablet (0.5 mg) by mouth Daily. 4 Active ipratropium-alb uterol (Duo-Neb) 0.5-2.5 mg/3 mL nebulizer solution USE 3 ML IN NEBULIZER 4 TIMES DAILY NEEDED FOR SHORTNESS OF BREATH FOR WHEEZING Active Active Problems Problem Noted Date Diagnosed Date Tobacco use disorder 07/18/2024 Second hand smoke exposure 07/18/2024 Family History Medical History Relation Name Comments No Known Problems Father No Known Problems Mother Relation Name Status Comments Father Mother Social History Tobacco Use Types Packs/Day Years Used Date Smoking Tobacco: Every Day Cigarettes 1 52.6 Started: 1972 Smokeless Tobacco: Never Tobacco Cessation:Ready to Q uit: Not Asked; Counseling Given: Not Answered Alcohol Use Standard Drinks/Week Comments Never 0 (1 standard drink = 0.6 oz pur e alcohol) Comments Unknown Sex and Gender Information Value Date Recorded Sex Assigned at Female 08/12/2024 8:42 AM EST Legal Sex Female 8:01 PM EDT Gender Identity Female 08/12/2024 8:42 AM EST Sexual Orientation Not on file Last Filed Vital Signs Vital Sign Reading Time Taken Comments Blood Pressure 105/64 08/12/2024 1:20 PM EST Pulse 87 08/12/2024 1:20 PM EST Temperature 37.1 C (98.7 F) 08/12/2024 12:35 PM EST Respiratory Rate 22 08/12/2024 1:20 PM EST Oxygen Saturation 98% 08/12/2024 1:20 PM EST Inhaled Oxygen Concentration - - Weight 78.5 kg (173 lb 1 oz) 08/12/2024 8:37 AM EST Height 165.1 cm (5' 5 ) 08/12/2024 8:37 AM EST Body Mass Index 28.8 08/12/2024 8:37 AM EST Plan of Treatment Health Maintenance Due Date Last Done Comments [facility]-Bone Density Scan 1952 [facility]-Depression Screening 1952 [facility]-Hepatitis C Screening 1950 [facility]-Medicare Annual Wellness (AWV) 1950 [facility]-Infant/Child/Adol SDOH Screenings 1952 [facility]- SDOH Screenings 1970 [facility]-Adult SDOH Screenings 1970 [facility]-Zoster Vaccines (1 of 2) 1971 CT Colonography 1997 Colonoscopy 1997 FIT-DNA 1997 FIT 1997 FOBT 1997 Sigmoidoscopy 1997 [facility]-Colorectal Cancer Screening 1997 [facility]-Breast Cancer Screening 2002 [facility]-RSV Vaccine: 60+ Years or (1 - Risk 60-74 years 1-dose series) 2012 [facility]-Pneumococcal Vaccine: 50+ Years (2 of 2 - PPSV23) 11/10/2018 09/15/2018 [id number] Vaccine (3 - Moderna risk series) 01/02/2021 12/05/2020, 11/07/2020 [facility]-Influenza Vaccine (#1) 04/10/202506/10, 07/01/2021, 07/16/2020, Additional history exists [facility]-DTaP,Tdap,and Td Vaccines (3 - Td or Tdap) 07/09/2027 07/09/2017, 12/18/2006 [facility]-Obesity Intervention Completed 07/18/2024 [facility]-Lung Cancer Screening Discontinued 08/12/2024 HPV Vaccines Aged Out No longer eligi ble based on patient's age to complete this topic [facility]-HIB Vaccines Aged Out No longer e ligible based on patient's age to complete this topic [facility]-Hepatitis A Vaccines Aged Out No longer eligible based on patient's age to complete this topic [facility]-IPV Vaccines Aged Out No longer e ligible based on patient's age to complete this topic [facility]-Rotavirus Vaccines Aged Out No lo nger eligible based on patient's age to complete this topic Procedures Procedure Name Priority Date/Time Associated Diagnosis Comments CT CHEST WO IV CONTRAST Routine 08/12/2024 7:56 AM EST Nodule of upper lobe of left lung from Last 3 Months or Most Recently Relevant to Health Maintenance Results * CT Chest wo IV Contrast (08/12/2024 7:56 AM EST) Anatomical Region Laterality Modality Chest Computed Tomogra phy Impressions 08/12/2024 9:40 AM EST Redemonstrated 13 mm nodule in the left upper lobe, unchanged in size since June 2024 but enlarged from more remote prior. Tissue confirmation should be considered. All other nodules are stable and warrant continued attention on followup. CRITICAL RESULT: No. COMMUNICATION: Per this written report. By electronically signing this report, I, the attending physician, attest that I have personally reviewed the images/data for the above examination(s) and agree with the final edited report. Drafted by Power Negron MD on 08/12/2024 9:03 AM Final report signed by Fredi Melgar MD on 08/12/2024 9:40 AM Narrative 08/12/2024 9:40 AM EST CLINICAL INDICATION: Lung nodule, > 8mm TECHNIQUE: Multiple CT helical images were obtained from thoracic inlet through upper abdomen without administration of IV contrast. Total DLP (Dose-Length Product): 198.11 mGy.cm. Please note: The reported value represents the total of one or more individual components during the CT acquisition on this date and at this time, and as such, the same value may appear in more than one CT report depending on the interpreting/reporting physicians. COMPARISON: CT chest outside imaging 06/27/2024; PET outside imaging since 07/04/2024 FINDINGS: Mediastinum and Pleura: Enlarged lower paratracheal node measuring 14 mm in short axis (series 4, image 169). No hilar adenopathy. Calcified hilar lymph nodes. No pleural or pericardial effusion. Mild coronary artery thoracic aortic calcifications. Lungs: Mild centrilobular and paraseptal emphysema. Redemonstrated 13 mm nodule in the left upper lobe (series 4, image 93), unchanged in size since June 2024 but enlarged from January 19, 2024. Unchanged 4 mm solid nodule in the right upper lobe (series 4, image 180). Tiny subcentimeter nodule in the right medial and left lower lobe (series 4, image 295), which is unchanged in size since June 2024. Calcified granuloma in the left upper and lower lobes. Upper Abdomen: No suspicious lesions in the partially visualized upper abdomen. Prior cholecystectomy with surgical clips present. Large hypoattenuating lesion in the left kidney, likely a cyst. Musculoskeletal: No suspicious lytic or sclerotic lesion. Metallic clips in the left armpit are present, likely postsurgical. Procedure Note Fredi Melgar MD - 08/12/2024 CLINICAL INDICATION: Lung nodule, > 8mm TECHNIQUE: Multiple CT helical images were obtained from thoracic inlet through upperabdomen without administration of IV contrast. Total DLP (Dose-Length Product): 198.11 mGy.cm. Please note: The reportedvalue represents the total of one or more individual components during theCT acquisition on this date and at this time, and as such, the same valuemay appear in more than one CT report depending on theinterpreting/reporting physicians. COMPARISON: CT chest outside imaging 06/27/2024; PET outside imaging since07/04/2024 FINDINGS: Mediastinum and Pleura: Enlarged lower paratracheal node measuring 14 mmin short axis (series 4, image 169). No hilar adenopathy. Calcified hilarlymph nodes. No pleural or pericardial effusion. Mild coronary arterythoracic aortic calcifications. Lungs: Mild centrilobular and paraseptal emphysema. Redemonstrated 13 mmnodule in the left upper lobe (series 4, image 93), unchanged in sizesince June 2024 but enlarged from January 19, 2024. Unchanged 4 mm solidnodule in the right upper lobe (series 4, image 180). Tiny subcentimeternodule in the right medial and left lower lobe (series 4, image 295),which is unchanged in size since June 2024. Calcified granuloma in theleft upper and lower lobes. Upper Abdomen: No suspicious lesions in the partially visualized upperabdomen. Prior cholecystectomy with surgical clips present. Largehypoattenuating lesion in the left kidney, likely a cyst. Musculoskeletal: No suspicious lytic or sclerotic lesion. Metallic clipsin the left armpit are present, likely postsurgical. IMPRESSION: Redemonstrated 13 mm nodule in the left upper lobe, unchanged in sizesince June 2024 but enlarged from more remote prior. Tissueconfirmation should be considered. All other nodules are stable and warrant continued attention onfollowup. CRITICAL RESULT: No. COMMUNICATION: Per this written report. By electronically signing this report, I, the attending physician, attestthat I have personally reviewed the images/data for the aboveexamination(s) and agree with the final edited report. Drafted by Power Negron MD on 08/12/2024 9:03 AM Final report signed by Fredi Melgar MD on 08/12/2024 9:40 AM Higinio Amaya MD IMG CT PROCEDURES Final Resul t from Last 3 Months or Most Recently Relevant to Health Maintenance Insurance [employer] MED[employer]ARE Care Teams Manager Behavior Relationship Specialty Start Date End Date System, Provider Not In, [place] [address] PCP - General Family Medicine 07/18/24
--- OUTSIDE RECORDS SUMMARY | 2025-03-31 10:34 | XMS_ITS | Encounter Summary ---
Author Organization Healthcare Address [address] [place] [address] Care Team Providers Care Haulpak Driver Name Role Phone System, Provider Not In MD Primary Care Provider Unavailable Encounter Details Date Type Department Care Team (Late st Contact Info) Description 01/19/2024 Orders Only External Location [address] [place] [address] Provider, External Social History Tobacco Use Types [...] Name Priority Date/Time Associated Diagnosis Comments CT OUTSIDE IMAGES 01/19/2024 2:01 PM EDT documented in this encounter Results * CT OUTSIDE IMAGES (01/19/2024 2:01 PM EDT) Anatomical Region Laterality Modality Computed Tomogra phy 01/19/2024 2:01 PM EDT us External Provider IMG CT PROCEDURES Final Result documented in this encounter Visit Diagnoses Not on filedocumented in this encounter Care Teams Haulpak Driver Relationship Specialty Start Date End Date System, Provider Not In, [address] [place] [address] PCP - General Family Medicine 07/18/24 documented as of this encounter
--- OUTSIDE RECORDS SUMMARY | 2025-03-31 10:34 | XMS_ITS | Encounter Summary ---
Author Organization Healthcare Address [address] [place] [address] Care Team Providers Care Cut Plug Packer Name Role Phone System, Provider Not In MD Primary Care Provider Unavailable Encounter Details Date Type Department Care Team (Late st Contact Info) Description 06/27/2024 Orders Only External Location [address] [place] [address] Provider, External Social History Tobacco Use Types [...] Date/Time Associated Diagnosis Comments CT OUTSIDE IMAGES 06/27/2024 5:32 PM EST documented in this encounter Results * CT OUTSIDE IMAGES (06/27/2024 5:32 PM EST) Anatomical Region Laterality Modality Computed Tomogra phy 06/27/2024 5:32 PM EST us External Provider IMG CT PROCEDURES Final Result documented in this encounter Visit Diagnoses Not on filedocumented in this encounter Care Teams Cut Plug Packer Relationship Specialty Start Date End Date System, Provider Not In, [address] [place] [address] PCP - General Family Medicine 07/18/24 documented as of this encounter
--- OUTSIDE RECORDS SUMMARY | 2025-03-31 10:34 | XMS_ITS | Patient Health Record ---
Author Organization [facility] Address [address] [facility] [address] [place] [id number] Care Team Providers Care Sign Maintenance Name Role Phone Jasen Evans Primary Care Provider Allergies No Known Allergies Results Component Value Reference Range Notes P-Basic Metabolic Panel (BMP ) Reviewed date:09/14/2024 01:09:49 PM Interpretation:satisfactory Performing Lab: Notes/Report: Test performed by [facility] [address] [place], [place] [address] [place] , [address], [place] [address] Mohsen Puckett MD, Special Education Math Teacher CLIA: [id number] Sodium 138 135-145 mmol/L Potassium 4.5 3.5-5.3 mmol/L Chloride 96 97-108 mmol/L CO2 29 22-32 mmol/L Glucose 88 65-99 mg/dL BUN 15 8-23 mg/dL Creatinine 1.00 0.50-1.00 mg/dL Calcium 9.6 8.6-10.4 mg/dL eGFR by Creatinine 60 >59 mL/min/1.73m2 Glycohemoglobin A1c (in hous e) Reviewed date:07/18/2024 01:07:28 PM Interpretation:5.9 Performing Lab: Notes/Report: 5.9 glycohemoglobin 5.9% 5 - 6.5 % P-Basic Metabolic Panel (BMP ) Reviewed date:07/18/2024 01:07:27 PM Interpretation:Na 133, cl 96, gluc 108 Performing Lab: Notes/Report: Test performed by [facility] [address] [place], [place] [address] [place] , [address], [place] [address] Mohsen Puckett MD, Special Education Math Teacher CLIA: [id number] Sodium 133 135-145 mmol/L Potassium 3.8 3.5-5.3 mmol/L Chloride 96 97-108 mmol/L CO2 26 22-32 mmol/L Glucose 108 65-99 mg/dL BUN 17 8-23 mg/dL Creatinine 0.70 0.50-1.00 mg/dL Calcium 9.5 8.6-10.4 mg/dL eGFR by Creatinine 92 >59 mL/min/1.73m2 P-TSH Reviewed date:07/18/2024 01:07:28 PM Interpretation:0.41 Performing Lab: Notes/Report: Test performed by [facility] [address] [place] [address] , [address], [place] [address] Mohsen Puckett MD, Special Education Math Teacher CLIA: [id number] TSH 0.41 0.43-5.25 mU/L CT Scan : Spine, Thoracic, w ithout contrast Reviewed date:07/26/2024 10:29:09 AM Interpretation:negative t-spine, left upper lobe lung nodule Performing Lab: Notes/Report: negative t-spine, left upper lobe lung nodule CBC Venipuncture (in house) Reviewed date:02/03/2025 03:44:58 [...] 122 Performing Lab: Notes/Report: Test performed by [facility] [address] [place] [address] , [address], [place] [address] Mohsen Puckett MD, Special Education Math Teacher CLIA: [id number] Sodium 134 135-145 mmol/L Potassium 4.2 3.5-5.3 [...] Interpretation:Normal Performing Lab: Notes/Report: Test performed by [facility], [address] , [address], [place] [address] Mohsen Puckett MD, Special Education Math Teacher CLIA: [id number] TSH 2.54 0.43-5.25 mU/L Medications Medication SIG (Take, Route, Frequency, Duration) [...] times a day as needed 07/11/2024 Not-Taking Potassium Chloride ER 10 MEQ 1 tablet Orally Once a day; Duration: 90 days Active Anoro Ellipta 62.5-25 MCG/ACT 1 puff(s) inhaled once a day; Duration: 30 day(s) Active Magnesium 250 MG 1 tablet Orally Once a day at bedtime; Duration: 30 days 01/27/2025 Active Synthroid 100 MCG 1 tablet in the morning on an empty stomach Orally Once a day; Duration: 30 days Active amLODIPine Besylate-Valsartan 5-160 MG TAKE 1 TABLET ONCE DAILY; Duration: 90 Active Immunizations Vaccine Route Administration Date Status Comme nts COVID 19 Moderna Unknown 11/07/2020 Administered COVID 19 Moderna Unknown 12/05/2020 Administered Fluzone High Dose (65yr and older) IM Intramuscular 07/09/2017 Administered Fluzone High Dose (65yr and older) IM Intramuscular 07/14/2018 Administered Fluzone High Dose (65yr and older) IM Intramuscular 08/29/2019 Administered Fluzone High Dose (65yr and older) IM Intramuscular 07/16/2020 Administered Fluzone High Dose (65yr and older) IM Intramuscular 07/01/2021 Administered Fluzone High Dose (65yr and older) Unknown 06/10/2022 Administered Fluzone High Dose (65yr and older) IM Intramuscular 06/08/2023 Administered Hepatitis B (20 and more) Unknown 01/09/1997 Administer ed Hepatitis B (20 and more) Unknown 07/14/1997 Administer ed PNEUMOVAX 23 VACCINE IM Intramuscular 01/16/2016 Administe red Prevnar (PCV13) IM Intramuscular 09/15/2018 Administered Shingrix IM Intramuscular 09/15/2018 Administered Shingrix IM Intramuscular 01/11/2019 Administered Tetanus Tdap-Adacel (over 7yrs) Unknown 12/18/2006 Administered Tetanus Tdap-Adacel (over 7yrs) IM Intramuscular 07/09/2017 Administered Problems Problem Type SNOMED Code ICD Code Onset Dates Problem Status W/U Status Risk Notes Problem Essential hypertension (12294238) Essential hypertension (I10) Active confirmed Problem Abnormal mammogram (264114712) Abnormal mammogram (R92.8) Active confirmed Problem Solitary nodule of lung (326418044) Lung nodule (R91.1) Active confirmed Problem Osteopenia (661282407) Osteopenia (M85.80) Active confirmed Problem Sebaceous cyst (394660694) Sebaceous cyst (L72.3) Active confirmed Problem Restless legs (00946633) Restless legs (G25.81) Active confirmed Problem Localized edema (8941745) Localized edema (R60.0) Active confirmed Problem Mixed hyperlipidemia (109900609) Mixed hyperlipidemia (E78.2) Active confirmed Problem Primary insomnia (0148086) Primary insomnia (F51.01) Active confirmed Problem Pulmonary nodule (306390961) Pulmonary nodule (R91.1) Active confirmed Problem Acquired hypothyroidism (374640204) Acquired hypothyroidism (E03.9) Active confirmed Problem Pulmonary emphysema (27505817) Pulmonary emphysema, unspecified emphysema type (J43.9) Active confirmed Problem Reactive depression (situational) (39803077) Situational depression (F43.21) Active confirmed Problem Dermatitis (207766588) Dermatitis (L30.9) Active confirmed Problem Osteoarthritis of knee (358774294) Primary osteoarthritis of right knee (M17.11) Active confirmed Problem Osteoarthritis of knee (545797341) Primary osteoarthritis of left knee (M17.12) Active confirmed Problem Artificial knee joint present (477149238097) Status post right knee replacement (Z96.651) Active confirmed Problem Malignant neoplasm of female breast (179015950) 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) Active confirmed Problem Fibrocystic breast changes (95512756) Fibrocystic breast disease (FCBD), unspecified laterality (N60.19) Active confirmed Problem Steatosis of liver (834189750) Steatosis of liver (K76.0) Active confirmed Problem Radicular pain (83346051) Radicular pain (M54.10) Active confirmed Problem Malignant neoplasm of upper lobe, bronchus or lung (146855884) 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) Active confirmed Vital Signs Heart Rate 78 /min 01/20/2025 ZA Blood pressure diastolic 58 mm Hg 01/20/2025 ZA Height 65 in 01/20/2025 ZA Blood pressure systolic 102 mm Hg 01/20/2025 ZA Weight 174.0 lbs 01/20/2025 ZA BMI 28.95 kg/m2 01/20/2025 ZA Encounters [facility]counter [facility] Date [facility] [address] [facility] [address] [facility] [address] [place] [id number] 07/11/2024 Jasen Evans Essential hypertensi on I10 ; Pulmonary emphysema, unspecified emphysema type J43.9 ; Acquired hypothyroidism E03.9 ; Hyperglycemia R73.9 ; Radicular pain M54.10 and Restless leg syndrome G25.81 [facility] [address] [facility] [address] [place] [id number] 09/08/2024 Jasen Evans Localized edema R60. 0 ; Pulmonary emphysema, unspecified emphysema type J43.9 ; Essential hypertension I10 and 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 C34.12 [facility] [address] [place], [place] [id number] 09/15/2024 J Rob Evans 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 C34.12 and Localized edema R60.0 [facility] [address] [facility] [address] [place], [place] [id number] 01/20/2025 J Rob Evasn 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 C34.12 ; Ductal carcinoma of left breast C50.912 ; Acquired hypothyroidism E03.9 ; Pulmonary emphysema, unspecified emphysema type J43.9 ; Essential hypertension I10 and BMI 28.0-28.9,adult Z68.28 [facility] [address] [place], [place] [id number] 06/28/2024 Jasen Evans [facility] [address] [facility] [address] [place], [place] [id number] 07/18/2024 Jasen Evans [facility] [address] [facility] [address] [place] [id number] 10/07/2024 J Rob Evans Restless leg syndrom e G25.81 [facility] [address] [facility] [address] [place] [id number] 12/05/2024 J Rob Evans Restless leg syndrom e G25.81 [facility] [address] [facility] [address] [place] [id number] 01/18/2025 Jasen Evans [facility] [address] [facility] [address] [place] [id number] 01/23/2025 Jasen Evans [facility] [address] [facility] [address] [place], [place] [id number] 01/27/2025 Jasen Evans [facility] [address] [place], [place] [id number] 01/31/2025 Jasen Evans [facility] [address] [facility] [address] [place], [place] [id number] 03/10/2025 Jasen Evans Assessments Encounter Date Diagnosis (ICD Code) Assessment Notes Treatment Notes Treatment Clinical Notes Section Notes 07/11/2024 Essential hypertension (ICD-10 - I10) 07/11/2024 Pulmonary emphysema, unspecified emphysema type (ICD-10 - J43.9) 09/08/2024 Localized edema (ICD-10 - R60.0) 09/08/2024 Pulmonary emphysema, unspecified emphysema type (ICD-10 - J43.9) 09/15/2024 Localized edema (ICD-10 - R60.0) 09/15/2024 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 (ICD-10 - C34.12) continue current therapy 10/07/2024 Restless leg syndrome (ICD-10 - G25.81) 12/05/2024 Restless leg syndrome (ICD-10 - G25.81) 01/20/2025 Ductal carcinoma of left breast (ICD-10 - C50.912) 01/20/2025 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 (ICD-10 - C34.12) 01/20/2025 Acquired hypothyroidism (ICD-10 - E03.9) 07/11/2024 Acquired hypothyroidism (ICD-10 - E03.9) 09/08/2024 Essential hypertension (ICD-10 - I10) 09/08/2024 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 (ICD-10 - C34.12) 07/11/2024 Hyperglycemia (ICD-10 - R73.9) 01/20/2025 Pulmonary emphysema, unspecified emphysema type (ICD-10 - J43.9) 07/11/2024 Radicular pain (ICD-10 - M54.10) 01/20/2025 Essential hypertension (ICD-10 - I10) 07/11/2024 Restless leg syndrome (ICD-10 - G25.81) 01/20/2025 BMI 28.0-28.9,adult (ICD-10 - Z68.28) 01/18/2025 Other CancelRx Response got Denied on 2025-01-25 08:28:56 for 'Synthroid 125 MCG Tablet'Pharma cy Notes: Patient unknown to the Prescriber. Plan Of Treatment Next Appt Details Provider Name:Jasen turner, 04/21/2025 10:30:00 AM, [address], [address], [place], [id number], Insurance Providers Payer Name Payer Address Payer Phone Subscriber Number Group Number Insured Name Patient Relationship to Insured Coverage Start Date Coverage End Date AEV[place]IA HERNANDEZ [id number] [place] [place] [phone] [id number] JAMMIE NOVA Self - patient is the insured Medical (General) History Medical History History ICD Code Hypertension Arthritis 03/2013 biopsy suggestive of Lupus Eryth ematosis 2014 Cardiolyte GXT neg, 62% EF Shingix #1, 09/15/2018 Surgical History Surgery Date(Month/Year) lumpectomy R breast 02/2008 cholecystectomy 08/2009 rt knee replacement 06/07/2018 left knee replacement 2019 Ductal cacinoma of left breast 06/2020 lumpectomy of left breast, Dr. Riley Hospitalization History Reason Date(Month/Year) see above 06/07-06/10/2018 [facility] ER SOA 2017 [facility] -Pneumonia 12/29-
== END ==
LOC: SL 10:32
PROVIDERS: PCP Family Medicine; Visit Provider Internal Medicine Pulmonary Disease
DX: J43.9 Emphysema, unspecified (principal)
CPT/HCPCS: 94762

== ENCOUNTER 2025-04-20 14:34 | Outpatient (CLI) | payer MEDICARE, SELFPAY ==
--- OUTSIDE RECORDS SUMMARY | 2024-07-11 05:30 | XMS_ITS ---
Author Organization [facility] Address [address] [place] [id number] Care Team Providers Care Block Layer Name Role Phone Jasen Evans Primary Care Provider [phone] Allergies No Known Allergies Results Component Value Reference Range Notes Glycohemoglobin A1c (in hous e) Reviewed date:07/18/2024 01:07:28 PM Interpretation:5.9 Performing Lab: Notes/Report: 5.9 glycohemoglobin 5.9% 5 - 6.5 % P-Basic Metabolic Panel (BMP ) Reviewed date:07/18/2024 01:07:27 PM Interpretation:Na 133, cl 96, gluc 108 Performing Lab: Notes/Report: Test performed by [facility] [address] [place] [address] , [place] [address] Mohsen Puckett MD, Php Consultant CLIA: [id number] Sodium 133 135-145 mmol/L Potassium 3.8 3.5-5.3 mmol/L Chloride 96 97-108 mmol/L CO2 26 22-32 mmol/L Glucose 108 65-99 mg/dL BUN 17 8-23 mg/dL Creatinine 0.70 0.50-1.00 mg/dL Calcium 9.5 8.6-10.4 mg/dL eGFR by Creatinine 92 >59 mL/min/1.73m2 P-TSH Reviewed date:07/18/2024 01:07:28 PM Interpretation:0.41 Performing Lab: Notes/Report: Test performed by [facility] [address] [place] [address] , [address], [place] [address] Mohsen Puckett MD, Php Consultant CLIA: [id number] TSH 0.41 0.43-5.25 mU/L CT Scan : [...] W/U Status Risk Notes Problem Radicular pain (51239261) Radicular pain (M54.10) Active confirmed Vital Signs Blood pressure systolic 126 mm Hg 07/11/20 24 Blood pressure diastolic 72 mm Hg 024 Heart Rate 84 /min 07/11/2024 Height 65 in 07/11/2024 Weight 177.2 lbs 07/11/2024 BMI 29.48 kg/m2 07/11/2024 Encounters Encounter Location Date Provider Diagnosis [facility] [address] [place] [id number] 07/11/2024 Jasen Evans Essential hypertensi on I10 [...] 4 Weeks, Reason: Provider Name:Jasen Foster er, 05/01/2025 11:45:00 AM, [address], [address], [place], [id number], Progress Notes * MYKEL NOVA:1950 (74 yo F)Acc No.[id number]:07/11/2024 Progress Notes Patient: JAMMIE REEDER Provider: Jasen Evans M.D. :1950 A ge:74 Y S ex:Female Date:07/11/2024 Address:[address], [place], [id number] Subjective: * Chief Complaints: * 1 . [...] sister(s) . 1 daughter(s) - healthy. . brother-[place]. Daughter of recurrent breast Ca 2016. * [...] > precert is not required according to [facility] hotline; CPT code 58058; faxed to [facility] Clementina Sosa 07/26/2024 10:29:10 AM > , See phone encounter 5.?Restless leg syndrome? Start Pramipexole Dihydrochloride Tablet, 0.5 MG, 1 tablet, Orally, Once a day, 30 day(s), 30, Refills 4;?Start clonazePAM Tablet, 0.5 MG, 1 tablet, Orally, At Bed Time, 30, Refills 2.? * Procedure Codes: [address] [place], [address] CAPILLARY BLOOD DRAW, [address] GLYCATED HEMOGLOBIN TEST, Modifiers: QW * Follow Up: 4 Weeks * Images: Billing Information: * Visit Code: 05846 Office Visit, Est Pt., Level 4. * Procedure Codes: [address] [place]. [address] CAPILLARY BLOOD DRAW. [address] GLYCATED HEMOGLOBIN TEST. Modifiers: QW * Electronic signature of Jasen Evans MD on 04/20/2025 at 02:57 PM EDT Sign off status: Pending * Provider: Jasen Evans M.D. Date: 09/11/2023 Generated for Malia peters/Ti/Genesisitting on: 0 04/20/2025 02:57 PM EDT History and Physical Notes * HPI [...]
--- OUTSIDE RECORDS SUMMARY | 2024-08-15 07:15 | XMS_ITS ---
Author Organization [facility] Address [address] [facility] [address] [place] [id number] Care Team Providers Care Supervisor Opening And Picking Name Role Phone Jasen Evans Primary Care Provider [phone] REASON FOR VISIT 1 month ckup Encounters Encounter Location Date Provider Diagnosis [facility] [address] [facility] [address] [place] [id number] 08/15/2024 Jasen Evans Plan Of Treatment Next Appt Details Provider Name:Jasen Foster er, 05/01/2025 11:45:00 AM, [address] [facility], [address], [place], [id number], Progress Notes * MEGAN NOVAKEATONOB:1950 (74 yo F)Acc No.[id number]:08/15/2024 Progress Notes Patient: JAMMIE REEDER Provider: Jasen Evans M.D. :1950 A ge:74 Y S ex:Female Date:08/15/2024 Address:[id number] Subjective: * Chief Complaints: * 1 . 1 month ckup. * Medical History: Objective: * Vitals: Assessment: Plan: * Treatment: * Images: Billing Information: * Visit Code: * Procedure Codes: * Electronic signature of Jasen Evans MD on 04/20/2025 at 02:57 PM EDT Sign off status: Pending * Provider: Jasen Evans M.D. Date: 0 08/15/2024 Generated for Malia peters/Ti/Fang on: 0 04/20/2025 02:57 PM EDT
--- OUTSIDE RECORDS SUMMARY | 2024-09-08 11:45 | XMS_ITS ---
Author Organization [facility] Address [address] [facility] [address] [place] [id number] Care Team Providers Care Sample Checker Name Role Phone Jasen Evans Primary Care Provider Allergies No Known Allergies Results Component Value Reference Range Notes P-Basic Metabolic Panel (BMP ) Reviewed date:09/14/2024 01:09:49 PM Interpretation:satisfactory Performing Lab: Notes/Report: Test performed by [facility] [address] [place] [address] , [address], [place] [address] Mohsen Puckett MD, Operators Teacher CLIA: [id number] Sodium 138 135-145 mmol/L Potassium 4.5 3.5-5.3 [...] W/U Status Risk Notes Problem Localized edema (5901346) Localized edema (R60.0) Active confirmed Problem Malignant neoplasm of upper lobe, bronchus or lung (324671443) 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 0 [...] 1 Week, Reason: Provider Name:Jasen Foster er, 05/01/2025 11:45:00 AM, [address], [address], [place], [phone], Progress Notes * MAILE NOVAOB:1950 (74 yo F)Acc No.[id number]:09/08/2024 Progress Notes Patient: JAMMIE REEDER Provider: Jasen Evans M.D. :1950 A ge:74 Y S ex:Female Date:09/08/2024 Address:[address] [place] [address] [place], [id number] Subjective: * Chief Complaints: * 1 . [...] sister(s) . 1 daughter(s) - healthy. . brother-[place]. Daughter of recurrent breast Ca 2016. * [...] G 2211 Complex e/[place], [address] PULSE OX * Follow Up: 1 Week * Images: Billing Information: * Visit Code: 36951 Office Visit, Est Pt., Level 3. * Procedure Codes: G2211 Complex e/[place]. [address] PULSE OX. * Electronic signature of J Gilberto Evans MD on 04/20/2025 at 02:58 PM EDT Sign off status: Pending * Provider: Jasen Evans M.D. Date: 0 09/08/2024 Generated for Malia peters/Ti/Genesisitting on: 0 04/20/2025 02:58 PM EDT History and Physical Notes * [...]
--- OUTSIDE RECORDS SUMMARY | 2024-09-15 12:15 | XMS_ITS ---
Author Organization [facility] Address [address] [place] [phone] Care Team Providers Care Business Continuity Planner Name Role Phone Jasen Evans Primary Care Provider Allergies No Known Allergies REASON FOR VISIT [...] day; Duration: 90 days Active Vital Signs Blood pressure systolic 104 mm Hg 09/15/19 25 Blood pressure diastolic 62 mm Hg 025 Heart Rate 87 /min 09/15/2024 Height 65 in 09/15/2024 Weight 171.4 lbs 09/15/2024 BMI 28.52 kg/m2 09/15/2024 Encounters Encounter Location Date Provider Diagnosis [facility] [address] [place] [phone] 09/15/2024 Jasen Evans Small cell carcinoma of [address], [place], [phone], Progress Notes * AVTAR MAILEOB:1950 (74 yo F)Acc No.[id number]:09/15/2024 Progress Notes Patient: JAMMIE REEDER Provider: Jasen Evans M.D. :1950 A ge:74 Y S ex:Female Date:09/15/2024 Address:[place], [id number] Subjective: * Chief Complaints: * 1 . [...] * Images: Billing Information: * Visit Code: 97089 Office Visit, Est Pt., Level 3. * Procedure Codes: 61114 PULSE OX. * Electronic signature of Jasen Evans MD on 04/20/2025 at 02:56 PM EDT Sign off status: Pending * Provider: Jasen Evans M.D. Date: 0 09/15/2024 Generated for Malia peters/Ti/Genesisitting on: 0 04/20/2025 02:56 PM EDT History and Physical Notes * [...]
--- OUTSIDE RECORDS SUMMARY | 2025-01-20 05:45 | XMS_ITS ---
Author Organization [facility] Address [address] [place] [id number] Care Team Providers Care Edge Trimming Machine Operator Name Role Phone Jasen Evans [...] 122 Performing Lab: Notes/Report: Test performed by [employer] [facility]0 [facility] , [address], [place] [address] Mohsen Puckett MD, Gas Tester CLIA: [id number] Sodium 134 135-145 mmol/L Potassium 4.2 3.5-5.3 [...] Interpretation:Normal Performing Lab: Notes/Report: Test performed by [facility], [address] , [facility], [place] [address] Mohsen Puckett MD, Gas Tester CLIA: [id number] TSH 2.54 0.43-5.25 mU/L REASON FOR VISIT [...] Provider Diagnosis [facility] [address] [facility] [address] [place] [id number] 01/20/2025 Jasen Evans Small cell carcinoma of [...] Up: 3 Months, Reason: Provider Name:Jasen Foster , 05/01/2025 11:45:00 AM, [address] [facility], [address], [place], [id number], Progress Notes * MAILE NOVAOB:1950 (74 yo F)Acc No.[id number]:01/20/2025 Progress Notes Patient: JAMMIE REEDER Provider: Jasen Evans M.D. :1950 A ge:74 Y S ex:Female Date:01/20/2025 Address:[place], [id number] Subjective: * Chief Complaints: * 1 . [...] sister(s) . 1 daughter(s) - healthy. . brother-[place]. Daughter of recurrent breast Ca 2016. * [...] Essential hypertension - I10 6 . B [place] 28.0-28.9,adult - Z68.28 ? Plan: * Treatment: [...] G 2211 Complex e/[place], [address] CBC WITH AUTO DIFF, 84504 VENIPUNCT, ROUTINE*, G8420 BMI<30 AND >=22 CALC & DOCU, G8950 PREHTN/HTN BP DOC INDCD F/U DOC, G8752 MOST RECENT SYSTOLIC BP < 140MM HG, G8754 MOST RECENT DIASTOLIC BP < 90MM HG * Follow Up: 3 Months * Images: Billing Information: * Visit Code: 15672 Office Visit, Est Pt., Level 4. * Procedure Codes: G2211 Complex e/[place]. [address] CBC WITH AUTO DIFF. 87129 VENIPUNCT, ROUTINE*. G8420 BMI<30 AND >=22 CALC & DOCU. G8950 PREHTN/HTN BP DOC INDCD F/U DOC. G8752 MOST RECENT SYSTOLIC BP < 140MM HG. G8754 MOST RECENT DIASTOLIC BP < 90MM HG. * Electronic signature of Jasen Evans MD on 04/20/2025 at 02:58 PM EDT Sign off status: Pending * Provider: Jasen Evans M.D. Date: 0 01/20/2025 Generated for Malia lorraine/Ti/eTransmitting on: 0 04/20/2025 02:58 PM EDT History [...]
--- NOTE | 2025-04-20 14:38 | CT_ITS ---
FINAL REPORT TECHNIQUE: Axial CT of the brain with contrast. Coronal and sagittal there is good in the reformatted images were obtained. This study was performed with techniques to keep radiation doses as low as reasonably achievable, (ALARA). Individualized dose reduction techniques using automated exposure control or adjustment of mA and/or kV according to the patient's size were employed. CLINICAL HISTORY: SOLITARY PULMONARRY NODULE COMPARISON: None FINDINGS: There are no precontrast enhanced images, which somewhat limits the evaluation of intracranial hemorrhage. There is no mass effect or midline shift. There is no hydrocephalus. The ventricles are symmetric in size and configuration. There is a peripherally enhancing lesion in the right parietal vertex adjacent to the falx, which measures 13 mm in size with mild surrounding edema. There is a second, larger, lesion in the right cerebellum, peripherally enhancing, measuring 19 mm in size, also with surrounding edema. The posterior fossa is without acute abnormality. The basilar cisterns are preserved. There is an air-fluid level present in the left maxillary sinus. No acute osseous abnormality is identified. No abnormal contrast enhancement. IMPRESSION: There are 2 peripherally enhancing lesions, 1 in the right parietal vertex adjacent to the falx, the larger lesion in the right cerebellum. Both lesions have surrounding edema. The overall appearance is worrisome for metastatic disease. Correlation with MRI pre and postcontrast would be helpful for further evaluation. Reviewed, Interpreted and Dictated by Nuris Fournier MD Transcribed by Ana Sequeira Authenticated and [facility]
--- NOTE | 2025-04-20 14:38 | CT_ITS ---
FINAL REPORT TECHNIQUE: Thin section axial images were obtained from the thoracic inlet through the upper abdomen after intravenous contrast injection. Reconstruction images were obtained from the axial data. Exam was performed using dose reduction technique. This study was performed with techniques to keep radiation doses as low as reasonably achievable (ALARA). Individualized dose reduction techniques using automated exposure control or adjustment of mA and/or kV according to the patient's size were employed. CLINICAL HISTORY: SOLITARY PULMONARY NODULE COMPARISON: 12/06/2024 FINDINGS: There is a new 9 mm right axillary node present. There is also a small nodule in the lateral right breast, which measures 7 mm in size on the current examination, was previously 4 mm in size. There is skin thickening and abnormal attenuation in the left breast, similar to the prior exam. Right paratracheal adenopathy is present, borderline in size but stable in appearance. No hilar adenopathy is present. No pleural or pericardial effusion is noted. Changes of emphysema are once again identified. The left upper lobe nodule seen on the prior examination appears smaller, measuring 8 mm in size, best seen on image #17 of series 4. There is a nodule in the anterior right upper lobe seen on image #42 which is also stable. There is a new hypodense lesion in the left lobe of the liver which measures 5.3 cm in size. No other new lesions are noted in the included portion of the liver. A left adrenal nodule is stable. No acute osseous abnormality. IMPRESSION: New 9 mm right axillary nodule. There is a small nodule in the lateral right breast which was previously 4 mm in size, currently 7 mm in size. There is a new hypodense lesion in the left lobe of the liver, measuring 5.3 cm in size. Stable left adrenal nodule when compared to the prior exam. Reviewed, Interpreted and Dictated by Nuris Fournier MD Transcribed by Ana Sequeira Authenticated and [facility]
--- OUTSIDE RECORDS SUMMARY | 2025-04-20 14:56 | XMS_ITS ---
Author Organization Unknown Vital Signs BpStanding BpSitting BpSupine Date Temperature HeartRate Weight Hei ght Spo2 Respiration Bmi HeadCircumference FieldCount TimeRecorded NeckCircumferen ce WaistCircumference Pulse 102/58 01/20 00:00 :00 97.7 78 174,0 5,5 28.9 5 6 03/01/2025 09:45:00 104/62 09/15 00:00 :00 98.0 87 171,6.4 0 5,5 28.5 2 6 03/01/2025 16:15:00 130/84 09/08 00:00 :00 98.0 111 171,0 5,5 28.4 5 6 03/01/2025 15:45:00 126/72 07/11 00:00 :00 97.9 84 177,3.2 0 5,5 29.4 8 6 03/01/2025 09:30:00 120/70 01/10 00:00 :00 97.8 81 191,12. 80 5,5 31.9 1 6 03/01/2025 10:00:00 114/72 06/08 00:00 :00 97.8 74 194,0 5,5 32.2 8 6 03/01/2025 09:30:00 114/80 03/09 00:00 :00 98.2 88 192,3.2 0 5,5 31.9 8 6 03/01/2025 11:45:00 120/70 03/05 00:00 :00 98.0 72 192,3.2 0 5,5 31.9 8 6 03/01/2025 08:00:00 110/70 02/23 00:00 :00 97.5 83 193,9.6 0 5,5 32.2 1 6 03/01/2025 13:45:00 108/68 07/15 00:00 :00 97.7 84 190,9.6 0 5,5 31.7 1 6 03/01/2025 16:10:00
--- OUTSIDE RECORDS SUMMARY | 2025-04-20 14:57 | XMS_ITS | Clinical Summary ---
Author Organization Healthcare Address [address] [place] [address] Care Team Providers Care I&C Tech Name Role Phone System, Provider Not In [...] Date Smoking Tobacco: Every Day Cigarettes 1 52.7 Started: 1970 Smokeless Tobacco: Never Tobacco Cessation:Ready [...] Vaccine: 50+ Years (2 of 2 - PPSV23, PCV20, or PCV21) 11/10/2018 09/15/2018 [id number] Vaccine (3 - Moderna risk series) 01/02/2021 [...] Health Maintenance Insurance [employer] MED[employer] Care Teams I&C Tech Relationship Specialty Start Date End Date System, Provider Not In, [facility] [place] [address] PCP - General Family Medicine 07/18/24
--- OUTSIDE RECORDS SUMMARY | 2025-04-20 14:57 | XMS_ITS | CCD ---
Author Name Interface, [email or web address] lity Address [address] [facility] Address [address] [place], [place] [id number] Reason for Visit Social History Date Name Value 05/11/2020 Sex Female
--- OUTSIDE RECORDS SUMMARY | 2025-04-20 14:58 | XMS_ITS | Encounter Summary ---
Author Organization Healthcare Address [address] [place] [address] Care Team Providers Care Supply Chain Intern Name Role Phone System, Provider Not In MD Primary Care Provider Unavailable Encounter Details Date Type Department Care Team (Late st Contact Info) Description 01/19/2024 Orders Only External Location [address] [place] [address] Provider, External Social History Tobacco Use Types [...] on filedocumented in this encounter Care Teams Supply Chain Intern Relationship Specialty Start Date End Date System, Provider Not In, [address] [place] [address] PCP - General Family Medicine 07/18/24 documented as of this encounter
--- OUTSIDE RECORDS SUMMARY | 2025-04-20 14:58 | XMS_ITS | Encounter Summary ---
Author Organization Healthcare Address [address] [place] [address] Care Team Providers Care Pulp Drier Firer Name Role Phone System, Provider Not In MD Primary Care Provider Unavailable Encounter Details Date Type Department Care Team ([facility] st Contact Info) Description 06/27/2024 Orders Only External Location [address] [place] [phone] Provider, External Social History Tobacco Use Types [...] on filedocumented in this encounter Care Teams Pulp Drier Firer Relationship Specialty Start Date End Date System, Provider Not In, [address] [place] [address] PCP - General Family Medicine 07/18/24 documented as of this encounter
--- OUTSIDE RECORDS SUMMARY | 2025-04-20 14:58 | XMS_ITS | Patient Health Record ---
Author Organization [facility] Address [address] [facility] [address] [place] [id number] Care Team Providers Care Director Physical Name Role Phone Jasen Evans Primary Care Provider [phone] Allergies No Known Allergies Results Component Value Reference Range Notes P-Basic Metabolic Panel (BMP ) Reviewed date:09/14/2024 01:09:49 PM Interpretation:satisfactory Performing Lab: Notes/Report: Test performed by [facility] [address] [place], [place] [address] [address] , [address], [place] [address] Mohsen Puckett MD, Commercial Artist CLIA: [id number] Sodium 138 135-145 mmol/L Potassium 4.5 3.5-5.3 [...] 108 Performing Lab: Notes/Report: Test performed by [facility] [address] [place], [place] [address] [address] , [address], [place] [address] Mohsen Puckett MD, Commercial Artist CLIA: [id number] Sodium 133 135-145 mmol/L Potassium 3.8 3.5-5.3 mmol/L Chloride 96 97-108 mmol/L CO2 26 22-32 mmol/L Glucose 108 65-99 mg/dL BUN 17 8-23 mg/dL Creatinine 0.70 0.50-1.00 mg/dL Calcium 9.5 8.6-10.4 mg/dL eGFR by Creatinine 92 >59 mL/min/1.73m2 P-TSH Reviewed date:07/18/2024 01:07:28 PM Interpretation:0.41 Performing Lab: Notes/Report: Test performed by [facility] [address] [place] [address] , [address], [place] [address] Mohsen Puckett MD, Commercial Artist CLIA: [id number] TSH 0.41 0.43-5.25 mU/L CT Scan : [...] 122 Performing Lab: Notes/Report: Test performed by [facility] [address] [place] [address] , [address], [place] [address] Mohsen Puckett MD, Commercial Artist CLIA: [id number] Sodium 134 135-145 mmol/L Potassium 4.2 3.5-5.3 [...] Interpretation:Normal Performing Lab: Notes/Report: Test performed by [facility], [address] , [address] , [place] [address] Mohsen Puckett MD, Commercial Artist CLIA: [id number] TSH 2.54 0.43-5.25 mU/L Medications Medication SIG (Take, Route, Frequency, Duration) Notes Start Date End Date Status Pramipexole Dihydrochloride 0.5 MG 1 tablet Orally Once a day; Duration: 30 days 07/11/2024 Active Triamterene-HCTZ 75-50 MG 1/2 tab Orally Once a day; Duration: 90 days Active traMADol HCl 50 MG 1 tablet as needed Orally three times a day as needed 07/11/2024 Not-Taking Potassium Chloride ER 10 MEQ 1 tablet Orally Once a day; Duration: 90 days Active GNP Magnesium Oxide 250 mg TAKE ONE TABL ET BY MOUTH EVERY DAY AT BEDTIME; Duration: 30 Active Anoro Ellipta 62.5-25 MCG/ACT 1 puff(s) inhaled once a day; Duration: 30 day(s) Active Synthroid 100 MCG 1 tablet in the morning on an empty stomach Orally Once a day; Duration: 30 days Active Furosemide 20 mg TAKE ONE TABLET BY MOUTH EVERY DAY; Duration: 30 Active amLODIPine Besylate-Valsartan 5-160 MG TAKE 1 TABLET ONCE DAILY; Duration: 90 Active Immunizations Vaccine Route Administration Date Status Comme nts Tetanus Tdap-Adacel (over 7yrs) IM Intramuscular 07/09/2017 Administered Shingrix IM Intramuscular 09/15/2018 Administered Prevnar (PCV13) IM Intramuscular 09/15/2018 Administered PNEUMOVAX 23 VACCINE IM Intramuscular 01/16/2016 Administe red Fluzone High Dose (65yr and older) IM Intramuscular 07/09/2017 Administered Fluzone High Dose (65yr and older) IM Intramuscular 08/29/2019 Administered Fluzone High Dose (65yr and older) IM Intramuscular 07/16/2020 Administered Fluzone High Dose (65yr and older) IM Intramuscular 07/01/2021 Administered Fluzone High Dose (65yr and older) IM Intramuscular 06/08/2023 Administered COVID 19 Moderna Unknown 11/07/2020 Administered COVID 19 Moderna Unknown 12/05/2020 Administered Fluzone High Dose (65yr and older) Unknown 06/10/2022 Administered Fluzone High Dose (65yr and older) IM Intramuscular 07/14/2018 Administered Hepatitis B (20 and more) Unknown 07/14/1997 Administer ed Hepatitis B (20 and more) Unknown 01/09/1997 Administer ed Shingrix IM Intramuscular 01/11/2019 Administered Tetanus Tdap-Adacel (over 7yrs) Unknown 12/18/2006 Administered Problems Problem Type SNOMED Code ICD Code Onset Dates Problem Status W/U Status Risk Notes Problem Essential hypertension (38186771) Essential hypertension (I10) Active confirmed Problem Abnormal mammogram (758440555) Abnormal mammogram (R92.8) Active confirmed Problem Solitary nodule of lung (744978757) Lung nodule (R91.1) Active confirmed Problem Osteopenia (694278889) Osteopenia (M85.80) Active confirmed Problem Sebaceous cyst (914711744) Sebaceous cyst (L72.3) Active confirmed Problem Restless legs (14511916) Restless legs (G25.81) Active confirmed Problem Localized edema (6267595) Localized edema (R60.0) Active confirmed Problem Mixed hyperlipidemia (545024388) Mixed hyperlipidemia (E78.2) Active confirmed Problem Primary insomnia (1103864) Primary insomnia (F51.01) Active confirmed Problem Pulmonary nodule (360448143) Pulmonary nodule (R91.1) Active confirmed Problem Acquired hypothyroidism (944668994) Acquired hypothyroidism (E03.9) Active confirmed Problem Pulmonary emphysema (88592233) Pulmonary emphysema, unspecified emphysema type (J43.9) Active confirmed Problem Reactive depression (situational) (99618566) Situational depression (F43.21) Active confirmed Problem Dermatitis (695929584) Dermatitis (L30.9) Active confirmed Problem Osteoarthritis of knee (953299831) Primary osteoarthritis of right knee (M17.11) Active confirmed Problem Osteoarthritis of knee (664521459) Primary osteoarthritis of left knee (M17.12) Active confirmed Problem Artificial knee joint present (300853515789) Status post right knee replacement (Z96.651) Active confirmed Problem Malignant neoplasm of female breast (842264537) 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) Active confirmed Problem Fibrocystic breast changes (77632059) Fibrocystic breast disease (FCBD), unspecified laterality (N60.19) Active confirmed Problem Steatosis of liver (018278471) Steatosis of liver (K76.0) Active confirmed Problem Radicular pain (23073395) Radicular pain (M54.10) Active confirmed Problem Malignant neoplasm of upper lobe, bronchus or lung (624946740) 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) Active confirmed Vital Signs Heart Rate 78 /min 01/20/2025 ZA Blood pressure diastolic 58 mm Hg 01/20/2025 ZA Height 65 in 01/20/2025 ZA Blood pressure systolic 102 mm Hg 01/20/2025 ZA Weight 174.0 lbs 01/20/2025 ZA BMI 28.95 kg/m2 01/20/2025 ZA Encounters Encounter Location Date Provider Diagnosis [facility] [address] [facility] [address] [facility] [address] [place] [id number] 07/11/2024 Jasen Evans Essential hypertensi on I10 ; Pulmonary emphysema, unspecified emphysema type J43.9 ; Acquired hypothyroidism E03.9 ; Hyperglycemia R73.9 ; Radicular pain M54.10 and Restless leg syndrome G25.81 [facility] [address] [facility] [address] [facility] [address] [place], [place] [id number] 09/08/2024 Jasen Evans Localized edema R60. 0 ; Pulmonary emphysema, unspecified emphysema type J43.9 ; Essential hypertension I10 and 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 C34.12 [facility] [address] [place], [place] [id number] 09/15/2024 J Rob Evans 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 C34.12 and Localized edema R60.0 [facility] [address] [place], [place] [id number] 01/20/2025 J Rob Evans 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 C34.12 ; Ductal carcinoma of left breast C50.912 ; Acquired hypothyroidism E03.9 ; Pulmonary emphysema, unspecified emphysema type J43.9 ; Essential hypertension I10 and BMI 28.0-28.9,adult Z68.28 [facility] [address] [place], [place] [id number] 06/28/2024 Jasen Evans [facility] [address] [place], [place] [id number] 07/18/2024 Jasen Evans [facility] [address] [place], [place] [id number] 10/07/2024 J Rob Evans Restless leg syndrom e G25.81 [facility] [address] [place], [place] [id number] 12/05/2024 J Rob Evans Restless leg syndrom e G25.81 [facility] [address] [facility] [address] [place], [place] [id number] 01/18/2025 Jasen Evans [facility] [address] [place], [place] [id number] 01/23/2025 Jasen Evans [facility] [address] [place], [place] [id number] 01/27/2025 Jasen Evans [facility] [address] [place], [place] [id number] 01/31/2025 Jasen Evans [facility] [address] [place], [place] [id number] 03/10/2025 Jasen Evans Assessments Encounter Date Diagnosis (ICD Code) Assessment Notes Treatment Notes Treatment Clinical Notes Section Notes 09/08/2024 Localized edema (ICD-10 - R60.0) 09/08/2024 Pulmonary emphysema, unspecified emphysema type (ICD-10 - J43.9) 07/11/2024 Essential hypertension (ICD-10 - I10) 09/15/2024 Localized edema (ICD-10 - R60.0) 09/15/2024 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 (ICD-10 - C34.12) continue current therapy 10/07/2024 Restless leg syndrome (ICD-10 - G25.81) 12/05/2024 Restless leg syndrome (ICD-10 - G25.81) 07/11/2024 Pulmonary emphysema, unspecified emphysema type (ICD-10 - J43.9) 01/20/2025 Ductal carcinoma of left breast (ICD-10 - C50.912) 01/20/2025 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 (ICD-10 - C34.12) 07/11/2024 Acquired hypothyroidism (ICD-10 - E03.9) 01/20/2025 Acquired hypothyroidism (ICD-10 - E03.9) 09/08/2024 Essential [...] Treatment Next Appt Details Provider Name:Jasen turner, 05/01/2025 11:45:00 AM, [address], [address], [place], [id number], Insurance Providers Payer Name Payer Address Payer Phone Subscriber Number Group Number Insured Name Patient Relationship to Insured Coverage Start Date Coverage End Date AETJOSELYN HERNANDEZ [id number] [place]DA[place] [phone] [id number] JAMMIE NOVA Self - patient is the [...] Hospitalization History Reason Date(Month/Year) see above 06/07-06/10/2018 [facility] ER [facility] 2017 [facility] -Pneumonia 12/29-
--- OUTSIDE RECORDS SUMMARY | 2025-04-20 14:58 | XMS_ITS | Encounter Summary ---
Author Organization Healthcare Address [address] [place] [address] Care Team Providers Care Flat Sorter Processor Name Role Phone System, Provider Not In MD Primary Care Provider Unavailable Encounter Details Date Type Department Care Team (Late st Contact Info) Description 06/27/2024 Orders Only External Location [address] [place] [address] Provider, External Social History Tobacco Use Types [...] on filedocumented in this encounter Care Teams Flat Sorter Processor Relationship Specialty Start Date End Date System, Provider Not In, [address] [place] [address] PCP - General Family Medicine 07/18/24 documented as of this encounter
[2025-04-20 15:11] LABS: Blood Urea Nitrogen 16 mg/dl (7-17); Creatinine,Serum 0.80 mg/dl (0.52-1.04); Estimated Glomerular Filt Rate 71 ml/min (>60); GFR (African American) 85 ML/MIN (>60)
[2025-04-20] MEDS: SODIUM CHLORIDE 0.9% 10ML SYR (RAD ONLY) 10 ML IV (15:43)
[2025-04-20] MEDS: IOPAMIDOL-370 (76%);100ML BOTTLE 75 ML IV (15:43)
== END 2025-04-20 23:59 | disposition home or self-care (01) ==
LOC: RAD 14:35
PROVIDERS: PCP Family Medicine; Visit Provider Internal Medicine
DX: G93.89 Other specified disorders of brain (principal); G93.6 Cerebral edema; N63.10 Unspecified lump in the right breast, unspecified quadrant; K76.89 Other specified diseases of liver; E27.8 Other specified disorders of adrenal gland; R93.89 Abnormal findings on diagnostic imaging of other specified body structures; R91.1 Solitary pulmonary nodule
CPT/HCPCS: 36415; 70460; 71260; 82565; 84520; Q9967

== ENCOUNTER 2025-05-25 14:21 | Outpatient (CLI) | payer MEDICARE, SELFPAY ==
--- OUTSIDE RECORDS SUMMARY | 2024-08-15 07:15 | XMS_ITS ---
Author Organization [facility] Address [address] [facility] [address] [facility] [address] [place] [id number] Care Team Providers Care Professional Programmer Analyst Name Role Phone Jasen Evans Primary Care Provider REASON FOR VISIT 1 month ckup Encounters Encounter Location Date Provider Diagnosis [facility] [address] [facility] [address] [place] [id number] 08/15/2024 Jasen Evans Plan Of Treatment Next Appt Details Provider Name:Jasen Foster er, 07/31/2025 11:00:00 AM, [address] [facility], [address], [place], [id number], Progress Notes * Nj GRIDERWeiOB:1950 (74 yo F)Acc No.[id number]:08/15/2024 Progress Notes Patient: Gabriella REEDER Provider: Jasen Evans M.D. :1950 A ge:74 Y S ex:Female Date:08/15/2024 Address:[id number] Subjective: * Chief Complaints: * 1 . 1 month ckup. * Medical History: Objective: * Vitals: Assessment: Plan: * Treatment: * Images: Billing Information: * Visit Code: * Procedure Codes: * Electronic signature of Jasen Evans MD on 05/25/2025 at 02:36 PM EDT Sign off status: Pending * Provider: Jasen Evans M.D. Date: 0 08/15/2024 Generated for Malia peters/Ti/Fang on: 1 02:36 PM EDT
--- OUTSIDE RECORDS SUMMARY | 2024-09-08 11:45 | XMS_ITS ---
Author Organization [facility] Address [address] [facility] [address] [place] [phone] Care Team Providers Care Marketing Business Analyst Name Role Phone Jasen Evans Primary Care Provider Allergies No Known Allergies Results Component Value Reference Range Notes P-Basic Metabolic Panel (BMP ) Reviewed date:09/14/2024 01:09:49 PM Interpretation:satisfactory Performing Lab: Notes/Report: Test performed by [facility] [address] [place] [address] , [address], [place] [address] Mohsen Puckett MD, Roofer Gypsum CLIA: [id number] Sodium 138 135-145 mmol/L Potassium 4.5 3.5-5.3 [...] W/U Status Risk Notes Problem Localized edema (6692070) Localized edema (R60.0) Active confirmed Problem Malignant neoplasm of upper lobe, bronchus or lung (656673812) 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) Active confirmed Vital Signs Weight 171 lbs 09/08/2024 Blood pressure systolic 130 mm Hg 09/08/19 25 Blood pressure diastolic 84 mm Hg 025 Heart Rate 111 /min 09/08/2024 Height 65 in 09/08/2024 BMI 28.45 kg/m2 09/08/2024 Encounters Encounter Location Date Provider Diagnosis [facility] [address] [facility] [address] [place] [address], [place] [phone] 09/08/2024 Jasen Evans Localized edema R60. 0 [...] Details Follow Up: 1 Week, Reason: Provider Name:aJsen Foster er, 07/31/2025 11:00:00 AM, [address], [address], [place], [phone], Progress Notes * Gertrudis NOVAOB:1950 (74 yo F)Acc No.[id number]:09/08/2024 Progress Notes Patient: Gabriella REEDER Provider: Jasen Evans M.D. :1950 A ge:74 Y S ex:Female Date:09/08/2024 Address:[address] [place] [address] [place], [id number] Subjective: * Chief Complaints: * 1 . [...] sister(s) . 1 daughter(s) - healthy. . brother-[place]. Daughter of recurrent breast Ca 2016. * [...] G 2211 Complex e/[place], [address] PULSE OX * Follow Up: 1 Week * Images: Billing Information: * Visit Code: 20679 Office Visit, Est Pt., Level 3. * Procedure Codes: G2211 Complex e/[place]. [address] PULSE OX. * Electronic signature of J Gilberto Evans MD on 05/25/2025 at 02:37 PM EDT Sign off status: Pending * Provider: Jasen Evans M.D. Date: 0 09/08/2024 Generated for Malia peters/Ti/Genesisitting on: 1 02:37 PM EDT History and Physical Notes * [...]
--- OUTSIDE RECORDS SUMMARY | 2024-09-15 12:15 | XMS_ITS ---
[facility] Address [address] [place] [phone] Care Team Providers Care Garage Hand Name Role Phone Jasen Evans Primary Care [address] [place] [phone] 09/15/2024 Jasen Evans Small cell carcinoma of [address], [place], [phone], Progress Notes * AVTAR GertrudisOB:1950 (74 yo F)Acc No.[id number]:09/15/2024 Progress Notes Patient: Gabriella REEDER Provider: Jasen Evans M.D. :1950 A ge:74 Y S ex:Female Date:09/15/2024 Address:[place], [id number] Subjective: * Chief Complaints: * 1 . [...] sister(s) . 1 daughter(s) - healthy. . brother-[place]. Daughter of recurrent breast Ca 2016. * [...] * Images: Billing Information: * Visit Code: 13621 Office Visit, Est Pt., Level 3. * Procedure Codes: 85867 PULSE OX. * Electronic signature of Jasen Evans MD on 05/25/2025 at 02:36 PM EDT Sign off status: Pending * Provider: Jasen Evans M.D. Date: 0 09/15/2024 Generated for Malia peters/Ti/Genesisitting on: 1 02:36 PM EDT History and Physical Notes * [...]
--- OUTSIDE RECORDS SUMMARY | 2025-01-20 05:45 | XMS_ITS ---
Author Organization [facility] Address [address] [place] [id number] Care Team Providers Care Fitter Mechanic Name Role Phone Jasen Evans Primary Care Provider [phone] Allergies No Known Allergies Results Component Value [...] 122 Performing Lab: Notes/Report: Test performed by [employer] [facility]0 [facility] , [address], [place] [address] Mohsen Puckett MD, Handmade Tile Artist CLIA: [id number] Sodium 134 135-145 mmol/L Potassium 4.2 3.5-5.3 [...] Interpretation:Normal Performing Lab: Notes/Report: Test performed by [employer] [facility], [address] , [facility], [place] [address] Mohsen Puckett MD, Handmade Tile Artist CLIA: [id number] TSH 2.54 0.43-5.25 mU/L REASON FOR VISIT [...] ONCE DAILY; Duration: 90 Active Vital Signs Weight 174.0 lbs 01/20/2025 Blood pressure systolic 102 mm Hg 01/21/20 25 Blood pressure diastolic 58 mm Hg 025 Heart Rate 78 /min 01/20/2025 Height 65 in 01/20/2025 BMI 28.95 kg/m2 01/20/2025 ZA Encounters Encounter Location Date Provider Diagnosis [facility] [address] [place] [id number] 01/20/2025 Jasen Evans Small cell carcinoma of [...] 07/31/2025 11:00:00 AM, [address] [facility], [address], [place], [id number], Progress Notes * Gertrudis NOVAOB:1950 (74 yo F)Acc No.[id number]:01/20/2025 Progress Notes Patient: Gabriella REEDER Provider: aJsen Evans M.D. :1950 A ge:74 Y S ex:Female Date:01/20/2025 Address:[place], [id number] Subjective: * Chief Complaints: * 1 . [...] Diagno stic Procedure: H MH -Pneumonia 12/29-, [facility] ER SOA 2017, see above 06/07-06/10/2018. * Family History: F ather: , heart disease. M other: , CHF. P aternal Grand Father: HTN.?Paternal Grand Mother: HTN. M aternal Grand Father: HTN. M aternal Grand Mother: HTN.?1 brother(s) , 1 sister(s) . 1 daughter(s) - healthy. . brother-[place]. Daughter of recurrent breast Ca 2016. * [...] Essential hypertension - I10 6 . B [place] 28.0-28.9,adult - Z68.28 ? Plan: * Treatment: [...] G 2211 Complex e/[place], [address] CBC WITH AUTO DIFF, 99244 VENIPUNCT, ROUTINE*, G8420 BMI<30 AND >=22 CALC & DOCU, G8950 PREHTN/HTN BP DOC INDCD F/U DOC, G8752 MOST RECENT SYSTOLIC BP < 140MM HG, G8754 MOST RECENT DIASTOLIC BP < 90MM HG * Follow Up: 3 Months * Images: Billing Information: * Visit Code: 74990 Office Visit, Est Pt., Level 4. * Procedure Codes: G2211 Complex e/[place]. [address] CBC WITH AUTO DIFF. 66049 VENIPUNCT, ROUTINE*. G8420 BMI<30 AND >=22 CALC & DOCU. G8950 PREHTN/HTN BP DOC INDCD F/U DOC. G8752 MOST RECENT SYSTOLIC BP < 140MM HG. G8754 MOST RECENT DIASTOLIC BP < 90MM HG. * Electronic signature of Jasen Evans MD on 05/25/2025 at 02:37 PM EDT Sign off status: Pending * Provider: Jasen Evans M.D. Date: 0 01/20/2025 Generated for Malia lorraine/Ti/eTransmitting on: 1 02:37 PM EDT History and [...]
--- OUTSIDE RECORDS SUMMARY | 2025-05-01 07:45 | XMS_ITS ---
Author Organization [facility] Address [address] [facility] [address] [phone] Care Team Providers Care Junior Programmer Analyst Name Role Phone Jasen Evans [...] Problem Body mass index 30+ - obesity ([id number]) BMI 30.0-30.9,a dult (Z68.30) Active confirmed Vital Signs Weight 181.4 lbs 05/01/2025 Blood pressure systolic 110 mm Hg 05/01/20 25 Blood pressure diastolic 64 mm Hg 025 Heart Rate 94 /min 05/01/2025 Height 65 in 05/01/2025 BMI 30.18 kg/m2 05/01/2025 Encounters Encounter Location Date Provider Diagnosis [facility] [address] [facility] 36 [facility] [address] [place] [id number] 05/01/2025 Jasen Evans Small cell carcinoma of [...] Name:Jasen Foster er, 07/31/2025 11:00:00 AM, [address] [facility] 36 [facility], [address], [place], [phone], Progress Notes * Gertrudis NOVAOB:1950 (74 yo F)Acc No.[id number]:05/01/2025 Progress Notes Patient: Gabriella REEDER Provider: Jasen Evans M.D. :1950 A ge:74 Y S ex:Female Date:05/01/2025 Address:[address] [place] [address] [id number] Subjective: * Chief Complaints: * [...] Diagno stic Procedure: H MH -Pneumonia 12/29-, [facility] ER SOA 2017, see above 06/07-06/10/2018. * Family History: F ather: , heart disease. M other: , CHF. P aternal Grand Father: HTN.?Paternal Grand Mother: HTN. M aternal Grand Father: HTN. M aternal Grand Mother: HTN.?1 brother(s) , 1 sister(s) . 1 daughter(s) - healthy. . brother-[place]. Daughter of recurrent breast Ca 2016. * [...] estless legs - G25.81 5 . B [place] 30.0-30.9,adult - Z68.30 ? Plan: * Treatment: * Procedure Codes: G 2211 Complex e/m visit add on, G8783 BP SCR PRFRM RCMDD DEFIND SCR INTVL, 3074F SYST BP LT 130 MM HG, 3078F DIAST BP < 80 MM HG * Follow Up: 2 Months * Images: Drawin05/01/25 [facility] [place] [facility] Billing Information: * Visit Code: 38921 Office Visit, Est Pt., Level 3. * [...] 05/01/2025 Generated for Malia peters/Ti/eTransmitting on: 1 02:37 PM EDT History and [...]
--- OUTSIDE RECORDS SUMMARY | 2025-05-11 11:10 | XMS_ITS | Continuity of Care Document ---
Author Organization [facility] Phone Care Team Providers Care Resourcing Advisor Name Role Phone SABRINA CALDERON Unavailable FARNAZ CAIN Admitting FARNAZ CAIN Primary Attending ELSY KEYS Primary Care MEDICATIONS HOME MEDICATIONS Status RXNORM NDC Medication Dose Route Frequency Dates Comments Reported By Updated By Drug Treatment Unknown DISCHARGE MEDICATIONS Status RXNORM NDC Medication Dose Route Frequency Dates Dis pense Data Comments Physician Updated By No Discharge Medication Info rmation Available INPATIENT MEDICATIONS Status RXNORM NDC Medication Dose Route Frequency Rat e Quantity Dates Indication Dispense Data Comments Physician Updated By No Inpatient Medication Info rmation Available SOCIAL HISTORY SOCIAL HISTORY - Smoking Status SNOMED-CT Social History Element Description Effective Dates Offered Cessation Comment Updated By [id number] Smoking Status Unknown If Ever Smoked SOCIAL HISTORY - Gender Sex: Female SOCIAL HISTORY - Status : status i nformation is not available Intention in Next Year: intention information is not available SOCIAL HISTORY - Assessments Code System Description Status Date Value of Assessment Updated By Comment Assessment Information is no t available SOCIAL HISTORY - [place] Affiliation [place] information is not av ailable SOCIAL HISTORY - Legal Sex Legal Sex information is not available SOCIAL HISTORY - Sexual Behavior Sexual Orientation Gender Identity SNOMED-CT Description SNO MED -CT Description Activity Level No of Partners Partner Type UpdatedBy Information is not available SOCIAL HISTORY - Occupation Occupation information is no t available HEALTH CONCERNS Problems Concern Status Health Concern problem infor mation not available. Smoking Status Status Years Used Consumed packs p er day Health Concern smoking histo ry information not available. Family History Concern Status Health Concern family histor y information not available. ENCOUNTERS ENCOUNTER INFORMATION Reason for Visit RADIATION Admission May 03, 2025 5:09:00 PM [place] [facility] [address] [facility] [id number] Discharge May 10, 2025 3:59:00 AM UTC D ISCHARGED TO HOME OR SELF CARE ENCOUNTER DIAGNOSES Notes information is not isaiah ilable. Code System Diagnosis Onset Date Diagnosis information is not available. 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 [id number] on May 11, 2025 3:09:50 PM [place] CARE TEAM Care Resourcing Advisor Role SABRINA CALDERON Referring FARNAZ CAIN Admitting FARNAZ CAIN Primary Attending ELSY KEYS Primary Care CARE TEAM CARE piano mechanic apprentice Role on Team Location Telecom Status Start Date End Florencio e Updated By LUDMILA JONES PCP normal April 26, 2025 4:56:23 PM UT May 10, 2025 3:59:00 AM [place] [id number] on April 26, 2025 4:56:23 PM UT KVNG Mijares Referring normal April 26, 2025 4:56:23 PM UT May 10, 2025 3:59:00 AM UT [id number] on April 26, 2025 4:56:23 PM UT ANT JONES Attending normal April 26, 2025 4:56:23 PM UT May 10, 2025 3:59:00 AM UT [id number] on April 26, 2025 4:56:23 PM UT ANT JONES Admitting normal April 26, 2025 4:56:23 PM UT May 10, 2025 3:59:00 AM UT [id number] on April 26, 2025 4:56:23 PM UT
--- OUTSIDE RECORDS SUMMARY | 2025-05-25 14:36 | XMS_ITS | Clinical Summary ---
Author Organization Healthcare Address [address] [place] [address] Care Team Providers Care Manager Hardware Name Role Phone System, Provider Not In [...] Date Smoking Tobacco: Every Day Cigarettes 1 52.8 Started: 1972 Smokeless Tobacco: Never Tobacco Cessation:Ready [...] Screening 1950 [facility]-Medicare Annual Wellness (AWV) 1950 [facility]-/Child/Adol SDOH Screenings 1950 [facility]- SDOH Screenings 1970 [...] - PPSV23, PCV20, or PCV21) 11/10/2018 09/15/2018 [id number] Vaccine (3 - Moderna risk series) 01/02/2021 [...] the final edited report. Drafted by Power Nergon MD on 08/12/2024 9:03 AM Final report [...] Maintenance Insurance [employer] MEDICARE Care Teams Manager Hardware Relationship Specialty Start Date End Date System, Provider Not In, [facility] [place] [address] PCP - General Family Medicine 07/18/24
--- OUTSIDE RECORDS SUMMARY | 2025-05-25 14:36 | XMS_ITS | CCD ---
Author Name Interface, [facility] [facility] Address [address] [facility] Address [address] [place], [place] [id number] Reason for Visit Social History Date Name Value 05/11/2020 Sex Female
--- OUTSIDE RECORDS SUMMARY | 2025-05-25 14:37 | XMS_ITS | Patient Health Record ---
Author Organization [facility] Address [address] [facility] [address] [place] [id number] Care Team Providers Care Accounts Manager Name Role Phone Jasen Evans Primary Care Provider Allergies No Known Allergies Results Component Value Reference Range Notes P-Basic Metabolic Panel (BMP ) Reviewed date:09/14/2024 01:09:49 PM Interpretation:satisfactory Performing Lab: Notes/Report: Test performed by [facility] [address] [place], [place] [address] , [address], [place] [address] Mohsen Pukcett MD, Grade Recorder CLIA: [id number] Sodium 138 135-145 mmol/L Potassium 4.5 3.5-5.3 [...] 108 Performing Lab: Notes/Report: Test performed by [facility] [address] [place], [place] [address] , [address], [place] [address] Mohsen Puckett MD, Grade Recorder CLIA: [id number] Sodium 133 135-145 mmol/L Potassium 3.8 3.5-5.3 mmol/L Chloride 96 97-108 mmol/L CO2 26 22-32 mmol/L Glucose 108 65-99 mg/dL BUN 17 8-23 mg/dL Creatinine 0.70 0.50-1.00 mg/dL Calcium 9.5 8.6-10.4 mg/dL eGFR by Creatinine 92 >59 mL/min/1.73m2 P-TSH Reviewed date:07/18/2024 01:07:28 PM Interpretation:0.41 Performing Lab: Notes/Report: Test performed by [facility] [address] [place] [address] , [address], [place] [address] Mohsen Puckett MD, Grade Recorder CLIA: [id number] TSH 0.41 0.43-5.25 mU/L CT Scan : [...] 122 Performing Lab: Notes/Report: Test performed by [facility] [address] [place] [address] , [address], [place] [address] Mohsen Puckett MD, Grade Recorder CLIA: [id number] Sodium 134 135-145 mmol/L Potassium 4.2 3.5-5.3 [...] Interpretation:Normal Performing Lab: Notes/Report: Test performed by [facility], [address] , [address], [place] [address] Mohsen Puckett MD, Grade Recorder CLIA: [id number] TSH 2.54 0.43-5.25 mU/L Medications Medication SIG (Take, Route, Frequency, Duration) Notes Start Date End Date Status GNP Magnesium Oxide 250 mg 1 tablet at b edtime orally daily; Duration: 30 days Active Pramipexole Dihydrochloride 0.5 MG 1 tablet Orally Once a day; Duration: 30 days 07/11/2024 Active traMADol HCl 50 MG 1 tablet as needed Orally three times a day as needed 07/11/2024 Not-Taking Furosemide 20 mg TAKE ONE TABLET BY MOUTH EVERY DAY; Duration: 30 Active Synthroid 100 MCG 1 tablet in the morning on an empty stomach Orally Once a day; Duration: 30 days Active Potassium Chloride ER 10 MEQ 1 tablet Orally Once a day; Duration: 90 days Active amLODIPine Besylate-Valsartan 5-160 MG TAKE 1 TABLET ONCE DAILY; Duration: 90 Active Triamterene-HCTZ 75-50 MG 1/2 tab Orally Once a day; Duration: 90 days Active Anoro Ellipta 62.5-25 MCG/ACT 1 puff(s) inhaled once a day; Duration: 30 day(s) Active Immunizations Vaccine Route Administration Date Status Comme nts Tetanus Tdap-Adacel (over 7yrs) Unknown 12/18/2006 Administered Tetanus Tdap-Adacel (over 7yrs) IM Intramuscular 07/09/2017 Administered Shingrix IM Intramuscular 09/15/2018 Administered Shingrix IM Intramuscular 01/11/2019 Administered Prevnar (PCV13) IM Intramuscular 09/15/2018 Administered PNEUMOVAX 23 VACCINE IM Intramuscular 01/16/2016 Administe red Hepatitis B (20 and more) Unknown 01/09/1997 Administer ed Hepatitis B (20 and more) Unknown 07/14/1997 Administer ed Fluzone High Dose (65yr and older) IM [...] Administered COVID 19 Moderna Unknown 12/05/2020 Administered Problems Problem Type SNOMED Code ICD Code Onset Dates Problem Status W/U Status Risk Notes Problem Essential hypertension (02905912) Essential hypertension (I10) Active confirmed Problem Abnormal mammogram (042052019) Abnormal mammogram (R92.8) Active confirmed Problem Solitary nodule of lung (983369565) Lung nodule (R91.1) Active confirmed Problem Osteopenia (140142884) Osteopenia (M85.80) Active confirmed Problem Sebaceous cyst (679521184) Sebaceous cyst (L72.3) Active confirmed Problem Body mass index 30+ - obesity (674904683) BMI 30.0-30.9,adult (Z68.30) Active confirmed Problem Restless legs (45953192) Restless legs (G25.81) Active confirmed Problem Localized edema (3002834) Localized edema (R60.0) Active confirmed Problem Mixed hyperlipidemia (969818541) Mixed hyperlipidemia (E78.2) Active confirmed Problem Primary insomnia (6798904) Primary insomnia (F51.01) Active confirmed Problem Pulmonary nodule (304898239) Pulmonary nodule (R91.1) Active confirmed Problem Acquired hypothyroidism (308738207) Acquired hypothyroidism (E03.9) Active confirmed Problem Pulmonary emphysema (79466594) Pulmonary emphysema, unspecified emphysema type (J43.9) Active confirmed Problem Reactive depression (situational) (77711232) Situational depression (F43.21) Active confirmed Problem Dermatitis (967317287) Dermatitis (L30.9) Active confirmed Problem Osteoarthritis of knee (638168451) Primary osteoarthritis of right knee (M17.11) Active confirmed Problem Osteoarthritis of knee (683815394) Primary osteoarthritis of left knee (M17.12) Active confirmed Problem Artificial knee joint present (305418025379) Status post right knee replacement (Z96.651) Active confirmed Problem Malignant neoplasm of female breast (765693379) 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) Active confirmed Problem Fibrocystic breast changes (88051222) Fibrocystic breast disease (FCBD), unspecified laterality (N60.19) Active confirmed Problem Steatosis of liver (766695747) Steatosis of liver (K76.0) Active confirmed Problem Radicular pain (76758843) Radicular pain (M54.10) Active confirmed Problem Malignant neoplasm of upper lobe, bronchus or lung (763675025) 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) Active confirmed Vital Signs Heart Rate 94 /min 05/01/2025 Blood pressure diastolic 64 mm Hg 05/01/2025 Height 65 in 05/01/2025 Blood pressure systolic 110 mm Hg 05/01/2025 Weight 181.4 lbs 05/01/2025 BMI 30.18 kg/m2 05/01/2025 Encounters Encounter Location Date Provider Diagnosis [facility] [address] [facility] [address] [place] [id number] 07/11/2024 Jasen Evans Essential hypertensi on I10 ; Pulmonary emphysema, unspecified emphysema type J43.9 ; Acquired hypothyroidism E03.9 ; Hyperglycemia R73.9 ; Radicular pain M54.10 and Restless leg syndrome G25.81 [facility] [address] [facility] [address] [place] [id number] 09/08/2024 Jasen Evans Localized edema R60. 0 ; Pulmonary emphysema, unspecified emphysema type J43.9 ; Essential hypertension I10 and 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 C34.12 [facility] [address] [place], [place] [id number] 09/15/2024 J Rob Evans 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 C34.12 and Localized edema R60.0 [facility] [address] [place], [place] [id number] 01/20/2025 J Rob Evans 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 C34.12 ; Ductal carcinoma of left breast C50.912 ; Acquired hypothyroidism E03.9 ; Pulmonary emphysema, unspecified emphysema type J43.9 ; Essential hypertension I10 and BMI 28.0-28.9,adult Z68.28 [facility] [address] [place], [place] [id number] 05/01/2025 J Rob Evans 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 C34.12 ; Osteopenia M85.80 ; Status post right knee replacement Z96.651 ; Restless legs G25.81 and BMI 30.0-30.9,adult Z68.30 [facility] [address] [place], [place] [id number] 06/28/2024 Jasen Evans [facility] [address] [place], [place] [id number] 07/18/2024 Jasen Evans [facility] [address] [place], [place] [id number] 10/07/2024 Jasen 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 [facility] [address] [place], [place] [id number] 12/05/2024 Jasen 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 [facility] [address] [place], [place] [id number] 01/18/2025 Jasen Evans [facility] [address] [place], [place] [id number] 01/23/2025 Jasen Evans [facility] [address] [place], [place] [id number] 01/27/2025 Jasen Evans [facility] [address] [place], [place] [id number] 01/31/2025 Jasen Evans [facility] [address] [place], [place] [id number] 03/10/2025 Jasen Evans Assessments Encounter Date Diagnosis [...] 12/05/2024 Restless leg syndrome (ICD-10 - G25.81) 09/08/2024 Localized edema (ICD-10 - R60.0) 09/08/2024 Pulmonary emphysema, unspecified emphysema type (ICD-10 - J43.9) 01/20/2025 Ductal carcinoma of left breast (ICD-10 - C50.912) 01/20/2025 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 (ICD-10 - C34.12) 05/01/2025 Osteopenia (ICD-10 - M85.80) 05/01/2025 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 (ICD-10 - C34.12) 05/01/2025 Status post right knee replacement (ICD-10 - Z96.651) 09/08/2024 Essential hypertension (ICD-10 - I10) 01/20/2025 Acquired hypothyroidism (ICD-10 - E03.9) 07/11/2024 Acquired hypothyroidism (ICD-10 - E03.9) 07/11/2024 Hyperglycemia (ICD-10 - R73.9) 01/20/2025 Pulmonary emphysema, unspecified emphysema type (ICD-10 - J43.9) 09/08/2024 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 (ICD-10 - C34.12) 05/01/2025 Restless legs (ICD-10 - G25.81) 05/01/2025 BMI 30.0-30.9,adult (ICD-10 - Z68.30) 07/11/2024 Radicular pain (ICD-10 - M54.10) 01/20/2025 Essential hypertension (ICD-10 - I10) 07/11/2024 Restless leg syndrome (ICD-10 - G25.81) 01/20/2025 BMI 28.0-28.9,adult (ICD-10 - Z68.28) 01/18/2025 Other [facility]Rx Response got Denied on 2025-01-25 08:28:56 for 'Synthroid 125 MCG Tablet'[facility] [facility] Notes: Patient unknown to the Prescriber. Plan Of Treatment Pending Test Test Name Order Date Mammogram 04/24/2025 Next Appt Details Provider Name:Jasen Foster er, 07/31/2025 11:00:00 AM, [address], [address], [place], [place], [id number], Insurance Providers Payer Name Payer Address Payer Phone Subscriber Number Group Number Insured Name Patient Relationship to Insured Coverage Start Date Coverage End Date [employer] [id number] [place] [address] [id number] Gabriella Grider Self - patient is the insured Medical (General) History Medical History History ICD Code Hypertension Arthritis 03/2013 biopsy suggestive of Lupus Eryth ematosis 2015 Cardiolyte GXT neg, 62% EF Shingix #1, 09/15/2018 Surgical History Surgery Date(Month/Year) lumpectomy R breast 02/2008 cholecystectomy 08/2009 rt knee replacement 06/07/2018 left knee replacement 2019 Ductal cacinoma of left breast 06/2020 lumpectomy of left breast, Dr. Riley Hospitalization History Reason Date(Month/Year) see above 06/07-06/10/2018 [facility] ER SOA 2017 HM -Pneumonia 12/29-
--- OUTSIDE RECORDS SUMMARY | 2025-05-25 14:37 | XMS_ITS | Encounter Summary ---
Author Organization Healthcare Address [address] [place] [address] Care Team Providers Care Security Installer Name Role Phone System, Provider Not In MD Primary Care Provider Unavailable Encounter Details Date Type Department Care Team (Late st Contact Info) Description 06/27/2024 Orders Only External Location [address] [place] [phone] Provider, External Social History Tobacco Use Types [...] on filedocumented in this encounter Care Teams Security Installer Relationship Specialty Start Date End Date System, Provider Not In, [address] [place] [address] PCP - General Family Medicine 07/18/24 documented as of this encounter
--- OUTSIDE RECORDS SUMMARY | 2025-05-25 14:37 | XMS_ITS | Encounter Summary ---
Author Organization Healthcare Address [address] [place] [address] Care Team Providers Care Retail Interior Designer Name Role Phone System, Provider Not In MD Primary Care Provider Unavailable Encounter Details Date Type Department Care Team (Late st Contact Info) Description 06/27/2024 Orders Only External Location [address] [place] [address] Provider, External Social History Tobacco Use Types [...] on filedocumented in this encounter Care Teams Retail Interior Designer Relationship Specialty Start Date End Date System, Provider Not In, [address] [place] [address] PCP - General Family Medicine 07/18/24 documented as of this encounter
--- OUTSIDE RECORDS SUMMARY | 2025-05-25 14:37 | XMS_ITS | Encounter Summary ---
Author Organization Healthcare Address [address] [place] [address] Care Team Providers Care Medical Research Scientist Name Role Phone System, Provider Not In MD Primary Care Provider Unavailable Encounter Details Date Type Department Care Team (Late st Contact Info) Description 01/19/2024 Orders Only External Location [address] [place] [address] Provider, External Social History Tobacco Use Types [...] on filedocumented in this encounter Care Teams Medical Research Scientist Relationship Specialty Start Date End Date System, Provider Not In, [address] [place] [address] PCP - General Family Medicine 07/18/24 documented as of this encounter
[2025-05-29 09:38] LABS: Blood Urea Nitrogen 20 mg/dl (7-17); Creatinine,Serum 0.80 mg/dl (0.52-1.04); Estimated Glomerular Filt Rate 71 ml/min (>60); GFR (African American) 85 ML/MIN (>60)
== END 2025-05-25 23:59 | disposition home or self-care (01) ==
LOC: LAB 14:23
PROVIDERS: PCP Family Medicine; Visit Provider Internal Medicine
DX: Z01.89 Encounter for other specified special examinations (principal)
CPT/HCPCS: 36415; 80053; 82565; 84520; 85025; 86850

== ENCOUNTER 2025-05-29 09:06 | Outpatient (CLI) | payer MEDICARE, SELFPAY ==
--- OUTSIDE RECORDS SUMMARY | 2024-07-11 05:30 | XMS_ITS ---
Author Organization [facility] Address [address] [place] [id number] Care Team Providers Care Hand Inspector Name Role Phone Jasen Evans Primary Care Provider Allergies No Known Allergies Results Component Value Reference Range Notes Glycohemoglobin A1c (in hous e) Reviewed date:07/18/2024 01:07:28 PM Interpretation:5.9 Performing Lab: Notes/Report: 5.9 glycohemoglobin 5.9% 5 - 6.5 % P-Basic Metabolic Panel (BMP ) Reviewed date:07/18/2024 01:07:27 PM Interpretation:Na 133, cl 96, gluc 108 Performing Lab: Notes/Report: Test performed by [facility] [address] [place] [address] , [place] [address] Mohsen Puckett MD, Coke Burner CLIA: [id number] Sodium 133 135-145 mmol/L Potassium 3.8 3.5-5.3 mmol/L Chloride 96 97-108 mmol/L CO2 26 22-32 mmol/L Glucose 108 65-99 mg/dL BUN 17 8-23 mg/dL Creatinine 0.70 0.50-1.00 mg/dL Calcium 9.5 8.6-10.4 mg/dL eGFR by Creatinine 92 >59 mL/min/1.73m2 P-TSH Reviewed date:07/18/2024 01:07:28 PM Interpretation:0.41 Performing Lab: Notes/Report: Test performed by [facility] [address] [place] [address] , [address], [place] [address] Mohsen Puckett MD, Coke Burner CLIA: [id number] TSH 0.41 0.43-5.25 mU/L CT Scan : Spine, Thoracic, w ithout contrast Reviewed date:07/26/2024 10:29:09 AM Interpretation:negative t-spine, left upper lobe lung nodule Performing Lab: Notes/Report: negative t-spine, left upper lobe lung nodule REASON FOR VISIT 6 months, Needs labs & flu vaccine Medications Medication SIG (Take, Route, Frequency, Duration) Notes Start Date End Date Status Ventolin HFA 108 (90 Base) MCG/ACT 2 puff(s) inhaled tid PRN; Duration: 30 day(s) 07/09/2020 Not-Taking Pramipexole Dihydrochloride 0.125 MG 1 tab(s) orally bedtime Not-Taking Fenofibrate 160 MG 1 tab(s) orally once a day Not-Taking Doxepin HCl 10 MG 1 cap(s) orally once daily at bedtime Not-Taking Temazepam 15 MG 1 cap(s) orally at bedtime as needed 12/17/2022 Not-Taking Breztri Aerosphere 160-9-4.8 MCG/ACT 2 puff(s) inhaled 2 times a day 07/09/2020 Not-Taking Spironolactone 25 MG 1 tab(s) orally onc e a day Not-Taking Levothyroxine Sodium 125 mcg one tablet Orally once daily; Duration: 90 days Active Triamterene-HCTZ 75-50 MG TAKE 1 TABLET ONCE DAILY; Duration: 90 Active Evista 60 MG 1 tablet Orally Once a day; Duration: 30 day(s) 07/13/2023 Not-Taking Pramipexole Dihydrochloride 0.5 MG 1 tablet Orally Once a day; Duration: 30 day(s) 07/11/2024 Active clonazePAM 0.5 MG 1 tablet Orally At Bed Time 07/11/2024 Active Anoro Ellipta 62.5-25 MCG/ACT 1 puff(s) inhaled once a day; Duration: 30 day(s) Active Exforge 5-160 MG 1 tab(s) orally once a day; Duration: 90 days Active Potassium Chloride ER 10 MEQ 1 tablet Orally Once a day; Duration: 90 days Active traMADol HCl 50 MG 1 tablet as needed Orally three times a day as needed 07/11/2024 Active Problems Problem Type SNOMED Code ICD Code Onset Dates Problem Status W/U Status Risk Notes Problem Radicular pain (27058039) Radicular pain (M54.10) Active confirmed Vital Signs Weight 177.2 lbs 07/11/2024 Blood pressure systolic 126 mm Hg 07/11/20 24 Blood pressure diastolic 72 mm Hg 024 Heart Rate 84 /min 07/11/2024 Height 65 in 07/11/2024 BMI 29.48 kg/m2 07/11/2024 Encounters Encounter Location Date Provider Diagnosis [facility] [address] [place] [id number] 07/11/2024 Jasen Evans Essential hypertensi on I10 ; Pulmonary emphysema, unspecified emphysema type J43.9 ; Acquired hypothyroidism E03.9 ; Hyperglycemia R73.9 ; Radicular pain M54.10 and Restless leg syndrome G25.81 Assessments Encounter Date Diagnosis (ICD Code) Assessment Notes Treatment Notes Treatment Clinical Notes Section Notes 07/11/2024 Essential hypertension (ICD-10 - I10) 07/11/2024 Pulmonary emphysema, unspecified emphysema type (ICD-10 - J43.9) 07/11/2024 Acquired hypothyroidism (ICD-10 - E03.9) 07/11/2024 Hyperglycemia (ICD-10 - R73.9) 07/11/2024 Radicular pain (ICD-10 - M54.10) 07/11/2024 Restless leg syndrome (ICD-10 - G25.81) Plan Of Treatment Medication Medication Name Sig Start Date Stop Date Notes Pramipexole Dihydrochloride 0.5 MG 1 tab let Orally Once a day; Duration: 30 day(s) 07/11/2024 clonazePAM 0.5 MG 1 tablet Orally At B ed Time 07/11/2024 traMADol HCl 50 MG 1 tablet as needed Orally three times a day as needed 07/11/2024 Next Appt Details Follow Up: 4 Weeks, Reason: Provider Name:Jasen Foster er, 07/31/2025 11:00:00 AM, [address], [address], [place], [id number], Progress Notes * Magdalena NOVA:1950 (74 yo F)Acc No.[id number]:07/11/2024 Progress Notes Patient: Gabriella REEDER Provider: Jasen Evans M.D. :1950 A ge:74 Y S ex:Female Date:07/11/2024 Address:[address], [place], [id number] Subjective: * Chief Complaints: * 1 . 6 months. 2. Needs labs & flu vaccine. * HPI: C ardiology: The patient is here for a check up on Hypertension and Hyperlipidemia. Pt states she is doing good and denies any new concerns. Pt she is still having some pain in the right side. Pt states she is not fasting today. 74 year old female presents with c/o Short of Breath. Denies : Chest Pain. D enies : Dizziness. D enies : Palpitations. E NT/respiratory: Main c/o is bilateral lower ribs. CT was abnormal on 06/[address] Holt. 14mm apical lesion on the left highly suspicious. PET scan was done last week. She follows up with Dr. Holt this week regarding that scan. * ROS: D ERMATOLOGY: no R tootie. n o H carmelita. G ASTROENTEROLOGY: no N ausea. n o V omiting. n o D iarrhea.? U ROLOGY: no D ifficulty urinating. n o B lood in urine. * Medical History: H ypertension, Arthritis, 03/2013 biopsy suggestive of Lupus Erythematosis, 2014 Cardiolyte GXT neg, 62% EF, Shingix #1, 09/15/2018, Covid vaccine x2 Moderna - 11/07 & 12/05/20. 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 Riley 06/15/2020. * Hospitalization/Major Diagno stic Procedure: H MH -Pneumonia 12/29/14 - 12/31/14, H ER SOA 06/24/17, see above 06/07-06/10/18. * Family History: F ather: , heart disease. M other: , CHF. P aternal Grand Father: HTN.?Paternal Grand Mother: HTN. M aternal Grand Father: HTN. M aternal Grand Mother: HTN.?1 brother(s) , 1 sister(s) . 1 daughter(s) - healthy. . brother-[place]. Daughter of recurrent breast Ca 2016. * Social History: C URRENT TOBACCO USE S moking Status: Patient does smoke, packs per day: 1, number of cigarettes per day: 20, Since age of: 22, Smoking preference: cigarettes. C affeine: yes, frequency:daily. Exercise: yes. Home smoke detector use: yes. Marital Status: Single. New since last visit: none. Past smoking status: yes, PPD: 1, years: 30. Occup. exposure: none. Recreational drug use: no. Alcohol: no. Travel ouside [place]: no. * Medications: T aking Anoro Ellipta 62.5-25 MCG/ACT Aerosol Powder Breath Activated 1 puff(s) inhaled once a day , Taking Potassium Chloride ER 10 MEQ Tablet Extended Release 1 tablet Orally Once a day , Taking Exforge 5-160 MG Tablet 1 tab(s) orally once a day , Taking Triamterene-HCTZ 75-50 MG Tablet TAKE 1 TABLET ONCE DAILY , Taking Levothyroxine Sodium 125 mcg Tablet one tablet Orally once daily , Taking traMADol HCl 50 MG Tablet 1 tablet as needed Orally Three times a day , Not-Taking Evista 60 MG Tablet 1 tablet Orally Once a day , Not-Taking Spironolactone 25 MG Tablet 1 tab(s) orally once a day , Not-Taking Breztri Aerosphere 160-9-4.8 MCG/ACT Aerosol 2 puff(s) inhaled 2 times a day , Not-Taking Ventolin HFA 108 (90 Base) MCG/ACT Aerosol Solution 2 puff(s) inhaled tid PRN , Not-Taking Fenofibrate 160 MG Tablet 1 tab(s) orally once a day , Not-Taking Pramipexole Dihydrochloride 0.125 MG Tablet 1 tab(s) orally bedtime , Not-Taking Temazepam 15 MG Capsule 1 cap(s) orally at bedtime as needed , Not-Taking Doxepin HCl 10 MG Capsule 1 cap(s) orally once daily at bedtime , Medication List reviewed and reconciled with the patient * Allergies: N .K.D.A. Objective: * Vitals: W t:177.2, Temp:97.9, BP:126/72, HR:84, O2 Sat:98% on 2 LPM, Nurse:LEIGH, Ht: 65, BMI:29.48. * Examination: G eneral Examination: General Appearance: N AD, wearing nasal O2. H EENT:?unremarkable. O ral cavity: n o lesions, mucosa moist and WNL, no erythema. N damian: ?supple, no lymphadenopathy. C hest: n ormal shape and expansion. H eart: R SR. Lungs: d ecreased breath sounds. A bdomen: s oft and nontender, no organomegaly or masses, obese. N eurologic Exam: I ntact, gait normal. S kin: n ormal, no rash. . P eripheral pulses: n ormal . B ack: mild dorsal kyphosis. E xtremities: n o leg edema. Assessment: * Assessment: 1. E ssential hypertension - I10 (Primary) 2 . P ulmonary emphysema, unspecified emphysema type - J43.9 3 . A cquired hypothyroidism - E03.9 ?4. H yperglycemia - R73.9 5 . R adicular pain - M54.10 6 . R estless leg syndrome - G25.81 Plan: * Treatment: Value Reference Range B UN 17 8-23 - mg/dL * C alcium 9.5 8.6-10.4 - mg/dL * C hloride 96 L 97-108 - mmol/L * C O2 26 22-32 - mmol/L * C reatinine 0.70 0.50-1.00 - mg/dL * G lucose 108 H 65-99 - mg/dL * P otassium 3.8 3.5-5.3 - mmol/L * S odium 133 L 135-145 - mmol/L * e GFR by Creatinine 92 >59 - mL/min/1.73m2 * Leena Martin 4 1:07:19 PM >See phone encounter 2.?Acquired hypothyroidism?LAB: P-TSH (Collection Date & Time - 07/11/2024 09:25 AM)?0.41* Value Reference Range T SH 0.41 L 0.43-5.25 - mU/L * Leena Martin 1:07:19 PM >See phone encounter 3.?Hyperglycemia?LAB: Glycohemoglobin A1c (in house) (Collection Date & Time - 07/11/2024)? 5.9* Value Reference Range g lycohemoglobin 5.9% 5 - 6.5 % * Kelly Meeks 07/11/2024 10: 52:53 AM > Leena Martin 07/18/2024 1:07:19 PM >See phone encounter 4.?Radicular pain? Refill traMADol HCl Tablet, 50 MG, 1 tablet as needed, Orally, three times a day as needed, 90, Refills 1.?Imaging: CT Scan : Spine, Thoracic, without contrast (Performed Date - 07/25/2024)?negative t-spine, left upper lobe lung nodule* Lisa Graham 07/11/2024 10:41 :38 AM > precert is not required according to [facility] hotline; CPT code 28311; faxed to [facility] Clementina Sosa 07/26/2024 10:29:10 AM > , See phone encounter 5.?Restless leg syndrome? Start Pramipexole Dihydrochloride Tablet, 0.5 MG, 1 tablet, Orally, Once a day, 30 day(s), 30, Refills 4;?Start clonazePAM Tablet, 0.5 MG, 1 tablet, Orally, At Bed Time, 30, Refills 2.? * Procedure Codes: [address] [place], [address] CAPILLARY BLOOD DRAW, [address] GLYCATED HEMOGLOBIN TEST, Modifiers: QW * Follow Up: 4 Weeks * Images: Billing Information: * Visit Code: 17025 Office Visit, Est Pt., Level 4. * Procedure Codes: [address] [place]. [address] CAPILLARY BLOOD DRAW. [address] GLYCATED HEMOGLOBIN TEST. Modifiers: QW * Electronic signature of Jasen Evans MD on 05/29/2025 at 09:28 AM EDT Sign off status: Pending * Provider: Jasen Evans M.D. Date: 09/11/2023 Generated for Malia peters/Ti/Fang on: 09:28 AM EDT History and Physical Notes * HPI (History of Present Illness) Category Sub-Category Detail Notes Category Not es Cardiology Short of Breath Chest Pain Palpitations Dizziness Examination Category Sub-Category Detail Notes Category Not es General Examination HEENT: unremarkable Heart: RSR Lungs: decreased breath rosaura nds Abdomen: soft and nontender, no organomegaly or masses, obese Extremities: no leg edema General Appearance: NAD, wearing nasal O 2 Skin: normal, no rash. Neurologic Exam: Intact, gait normal Neck: supple, no lymphaden opathy Oral cavity: no lesions, mucosa m oist and WNL, no erythema Peripheral pulses: normal Back: mild dorsal kyphosis Chest: normal shape and exp ansion
--- OUTSIDE RECORDS SUMMARY | 2024-08-15 07:15 | XMS_ITS ---
Author Organization [facility] Address [address] [facility] [address] [place] [id number] Care Team Providers Care Cms Expert Name Role Phone Jasen Evans Primary Care Provider REASON FOR VISIT 1 month ckup Encounters Encounter Location Date Provider Diagnosis [facility] [address] [facility] [address] [place] [id number] 08/15/2024 Jasen Evans Plan Of Treatment Next Appt Details Provider Name:Jasen Foster er, 07/31/2025 11:00:00 AM, [address] [facility], [address], [place], [phone], Progress Notes * Nj GRIDERWeiOB:1950 (74 yo F)Acc No.[id number]:08/15/2024 Progress Notes Patient: Gabriella REEDER Provider: Jasen Evans M.D. :1950 A ge:74 Y S ex:Female Date:08/15/2024 Address:[id number] Subjective: * Chief Complaints: * 1 . 1 month ckup. * Medical History: Objective: * Vitals: Assessment: Plan: * Treatment: * Images: Billing Information: * Visit Code: * Procedure Codes: * Electronic signature of Jasen Evans MD on 05/29/2025 at 09:27 AM EDT Sign off status: Pending * Provider: Jasen Evans M.D. Date: 0 08/15/2024 Generated for Malia peters/Ti/Fang on: 1 09:27 AM EDT
--- OUTSIDE RECORDS SUMMARY | 2024-09-08 11:45 | XMS_ITS ---
Author Organization [facility] Address [address] [facility] [address] [place] [id number] Care Team Providers Care Emergency Detail Driver Name Role Phone Jasen Evans Primary Care Provider Allergies No Known Allergies Results Component Value Reference Range Notes P-Basic Metabolic Panel (BMP ) Reviewed date:09/14/2024 01:09:49 PM Interpretation:satisfactory Performing Lab: Notes/Report: Test performed by [facility] [address] [place] [address] , [address], [place] [address] Mohsen Puckett MD, Framer CLIA: [id number] Sodium 138 135-145 mmol/L Potassium 4.5 3.5-5.3 [...] W/U Status Risk Notes Problem Localized edema (2537673) Localized edema (R60.0) Active confirmed Problem Malignant neoplasm of upper lobe, bronchus or lung (171006752) 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 0 [...] 1 Week, Reason: Provider Name:Jasen Foster er, 07/31/2025 11:00:00 AM, [address], [address], [place], [phone], Progress Notes * Gertrudis NOVAOB:1950 (74 yo F)Acc No.[id number]:09/08/2024 Progress Notes Patient: Gabriella REEDER Provider: Jasen Evans M.D. :1950 A ge:74 Y S ex:Female Date:09/08/2024 Address:[address] [place] [address] [place], [id number] Subjective: * Chief Complaints: * 1 . [...] sister(s) . 1 daughter(s) - healthy. . brother-[place]. Daughter of recurrent breast Ca 2016. * [...] G 2211 Complex e/[place], [address] PULSE OX * Follow Up: 1 Week * Images: Billing Information: * Visit Code: 81406 Office Visit, Est Pt., Level 3. * Procedure Codes: G2211 Complex e/[place]. [address] PULSE OX. * Electronic signature of J Gilberto Evans MD on 05/29/2025 at 09:29 AM EDT Sign off status: Pending * Provider: Jasen Evans M.D. Date: 0 09/08/2024 Generated for Malia peters/Ti/Genesisitting on: 09:29 AM EDT History and Physical Notes * [...]
--- OUTSIDE RECORDS SUMMARY | 2024-09-15 12:15 | XMS_ITS ---
[facility] Address [address] [place] [phone] Care Team Providers Care Rock Picker Name Role Phone Jasen Evans Primary Care Provider [phone] Allergies No Known Allergies REASON FOR VISIT 1 wk f/u Medications Medication SIG (Take, Route, Frequency, Duration) Notes Start Date End Date Status Triamterene-HCTZ 75-50 MG TAKE 1 TABLET ONCE DAILY; Duration: 90 Active Synthroid 125 MCG TAKE 1 TABLET ONCE DAILY; Duration: 90 Active amLODIPine Besylate-Valsartan 5-160 MG TAKE 1 TABLET ONCE DAILY; Duration: 90 Active Furosemide 20 MG 1 tablet Orally Once a day; Duration: 30 day(s) 09/08/2024 Active traMADol HCl 50 MG 1 tablet as needed Orally three times a day as needed 07/11/2024 Not-Taking clonazePAM 0.5 MG 1 tablet Orally At Bed Time 07/11/2024 Active Pramipexole Dihydrochloride 0.5 MG 1 tablet Orally Once a day; Duration: 30 day(s) 07/11/2024 Active Anoro Ellipta 62.5-25 MCG/ACT 1 puff(s) inhaled once a day; Duration: 30 day(s) Active Potassium Chloride ER 10 MEQ 1 tablet Orally Once a day; Duration: 90 days Active Vital Signs Weight 171.4 lbs 09/15/2024 Blood pressure systolic 104 mm Hg 09/15/19 25 Blood pressure diastolic 62 mm Hg 025 Heart Rate 87 /min 09/15/2024 Height 65 in 09/15/2024 BMI 28.52 kg/m2 09/15/2024 Encounters Encounter Location Date Provider Diagnosis [facility] [address] [place] [phone] 09/15/2024 Jasen Evans 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 C34.12 and Localized edema R60.0 Assessments Encounter Date Diagnosis (ICD Code) Assessment Notes Treatment Notes Treatment Clinical Notes Section Notes 09/15/2024 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 (ICD-10 - C34.12) continue current therapy 09/15/2024 Localized edema (ICD-10 - R60.0) Plan Of Treatment Treatment Notes Assessment Notes Small cell carcinoma of upper lobe of le ft lung continue current therapy Next Appt Details Follow Up: 4 Weeks, Reason: Provider Name:Jasen Foster er, 07/31/2025 11:00:00 AM, [address], [address], [place], [phone], Progress Notes * AVTAR GertrudisOB:1950 (74 yo F)Acc No.[id number]:09/15/2024 Progress Notes Patient: Gabriella REEDER Provider: Jasen Evans M.D. :1950 A ge:74 Y S ex:Female Date:09/15/2024 Address:[place], [id number] Subjective: * Chief Complaints: * 1 . 1 wk f/u. * HPI: C ardiology: The pt is here for a follow up on lower extremity edema. Pt states she is taking the Furosemide as directed and has noticed less swelling in the right leg but the left is about. 74 year old female presents with c/o Short of Breath. c/o Leg Edema. Denies : Chest Pain. D enies : Dizziness. D enies : Palpitations. * ROS: D ERMATOLOGY: no R tootie. [...] sister(s) . 1 daughter(s) - healthy. . brother-[place]. Daughter of recurrent breast Ca 2016. * [...] TAKE 1 TABLET ONCE DAILY , Taking Furosemide 20 MG Tablet 1 tablet Orally Once a day , Not-Taking traMADol HCl 50 MG Tablet 1 tablet as needed Orally three times a day as needed , Medication List reviewed and reconciled with the patient * Allergies: N .K.D.A. Objective: * Vitals: W t:171.4, Temp:98.0, BP:104/62, HR:87, O2 Sat:95% on RA, Nurse:LEIGH, Ht: 65, BMI:28.52. * Examination: G eneral Examination: General Appearance: N AD, wearing nasal O2, note weight.?HEENT: u nremarkable. O ral cavity: n o lesions, mucosa moist and WNL, no erythema.?Neck: s upple, no lymphadenopathy. C hest: n ormal shape and expansion. H eart: RSR. L ungs: d ecreased breath sounds. A bdomen: s oft and nontender, no organomegaly or masses, obese. N eurologic Exam: I ntact, gait normal. S kin: n ormal, no rash. . P eripheral pulses: n ormal . B ack: mild dorsal kyphosis. E xtremities: 1 + leg edema. Assessment: * Assessment: 1. S mall cell carcinoma of upper lobe of left lung - C34.12 (Primary) 2 . L ocalized edema - R60.0 Plan: * Treatment: * Procedure Codes: 9 4760 PULSE OX * Follow Up: 4 Weeks * Images: Billing Information: * Visit Code: 00407 Office Visit, Est Pt., Level 3. * Procedure Codes: 92834 PULSE OX. * Electronic signature of Jasen Evans MD on 05/29/2025 at 09:27 AM EDT Sign off status: Pending * Provider: Jasen Evans M.D. Date: 0 09/15/2024 Generated for Malia peters/Ti/Luizasmitting on: 09:27 AM EDT History and Physical Notes * HPI (History of Present Illness) Category Sub-Category Detail Notes Category Not es Cardiology Short of Breath Chest Pain Palpitations Dizziness Leg Edema Examination Category Sub-Category Detail Notes Category Not es General Examination HEENT: unremarkable Heart: RSR Lungs: decreased breath rosaura nds Abdomen: soft and nontender, no organomegaly or masses, obese Extremities: 1+ leg edema General Appearance: NAD, wearing nasal O 2, note weight Skin: normal, no rash. Neurologic Exam: Intact, gait normal Neck: supple, no lymphaden opathy Oral cavity: no lesions, mucosa m oist and WNL, no erythema Peripheral pulses: normal Back: mild dorsal kyphosis Chest: normal shape and exp ansion
--- OUTSIDE RECORDS SUMMARY | 2025-01-20 05:45 | XMS_ITS ---
Author Organization [facility] Address [address] [place] [id number] Care Team Providers Care Gasoline Catalyst Operator Name Role Phone Jasen Evans Primary [...] 122 Performing Lab: Notes/Report: Test performed by [facility]0 [facility] , [address], [place] [address] Mohsen Puckett MD, Event Lighting Specialist CLIA: [id number] Sodium 134 135-145 mmol/L Potassium 4.2 3.5-5.3 [...] Interpretation:Normal Performing Lab: Notes/Report: Test performed by [employer], [address] , [facility], [place] [address] Mohsen Puckett MD, Event Lighting Specialist CLIA: [id number] TSH 2.54 0.43-5.25 mU/L REASON FOR VISIT [...] [address] [place] [id number] 01/20/2025 Jasen Evans Small cell carcinoma of [...] 11:00:00 AM, [address] [facility], [address], [place], [id number], Progress Notes * Gertrudis NOVAOB:1950 (74 yo F)Acc No.[id number]:01/20/2025 Progress Notes Patient: Gabriella REEDER Provider: Jasen Evans M.D. :1950 A ge:74 Y S ex:Female Date:01/20/2025 Address:[place], [id number] Subjective: * Chief Complaints: * 1 . [...] Diagno stic Procedure: H MH -Pneumonia 12/29-, [facility] ER SOA 2017, see above 06/07-06/10/2018. * Family History: F ather: , heart disease. M other: , CHF. P aternal Grand Father: HTN.?Paternal Grand Mother: HTN. M aternal Grand Father: HTN. M aternal Grand Mother: HTN.?1 brother(s) , 1 sister(s) . 1 daughter(s) - healthy. . brother-[place]. Daughter of recurrent breast Ca 2016. * [...] Essential hypertension - I10 6 . B [place] 28.0-28.9,adult - Z68.28 ? Plan: * Treatment: [...] G 2211 Complex e/[place], [address] CBC WITH AUTO DIFF, 11527 VENIPUNCT, ROUTINE*, G8420 BMI<30 AND >=22 CALC & DOCU, G8950 PREHTN/HTN BP DOC INDCD F/U DOC, G8752 MOST RECENT SYSTOLIC BP < 140MM HG, G8754 MOST RECENT DIASTOLIC BP < 90MM HG * Follow Up: 3 Months * Images: Billing Information: * Visit Code: 41231 Office Visit, Est Pt., Level 4. * Procedure Codes: G2211 Complex e/[place]. [address] CBC WITH AUTO DIFF. 77533 VENIPUNCT, ROUTINE*. G8420 BMI<30 AND >=22 CALC & DOCU. G8950 PREHTN/HTN BP DOC INDCD F/U DOC. G8752 MOST RECENT SYSTOLIC BP < 140MM HG. G8754 MOST RECENT DIASTOLIC BP < 90MM HG. * Electronic signature of Jasen Evans MD on 05/29/2025 at 09:29 AM EDT Sign off status: Pending * Provider: Jasen Evans M.D. Date: 0 01/20/2025 Generated for Malia lorraine/Ti/eTransmitting on: 1 09:29 AM EDT History and Physical Notes [...]
--- OUTSIDE RECORDS SUMMARY | 2025-05-01 07:45 | XMS_ITS ---
Author Organization [facility] Address [address] [facility] [address] [place] [id number] Care Team Providers Care Wood Router Hand Name Role Phone Jasen Evans Primary Care Provider [phone] Allergies No Known Allergies REASON FOR VISIT 3 month f/u, Needs labs, mammogram, bone density screening, & low dose chest CT Medications Medication SIG (Take, Route, Frequency, Duration) Notes Start Date End Date Status Synthroid 100 MCG 1 tablet in the morning on an empty stomach Orally Once a day; Duration: 30 days Active GNP Magnesium Oxide 250 mg TAKE ONE TABL ET BY MOUTH EVERY DAY AT BEDTIME; Duration: 30 Active traMADol HCl 50 MG 1 tablet as needed Orally three times a day as needed 07/11/2024 Not-Taking Furosemide 20 mg TAKE ONE TABLET BY MOUTH EVERY DAY; Duration: 30 Active Potassium Chloride ER 10 MEQ 1 tablet Orally Once a day; Duration: 90 days Active Pramipexole Dihydrochloride 0.5 MG 1 tablet Orally Once a day; Duration: 30 days 07/11/2024 Active amLODIPine Besylate-Valsartan 5-160 MG TAKE 1 TABLET ONCE DAILY; Duration: 90 Active Triamterene-HCTZ 75-50 MG 1/2 tab Orally Once a day; Duration: 90 days Active Anoro Ellipta 62.5-25 MCG/ACT 1 puff(s) inhaled once a day; Duration: 30 day(s) Active Problems Problem Type SNOMED Code ICD Code Onset Dates Problem Status W/U Status Risk Notes Problem Body mass index 30+ - obesity (041436686) BMI 30.0-30.9,a dult (Z68.30) Active confirmed Vital Signs Weight 181.4 lbs 05/01/2025 Blood pressure systolic 110 mm Hg 05/01/20 25 Blood pressure diastolic 64 mm Hg 025 Heart Rate 94 /min 05/01/2025 Height 65 in 05/01/2025 BMI 30.18 kg/m2 05/01/2025 Encounters Encounter Location Date Provider Diagnosis [facility] [address] [facility] [address] [facility] [address] [place] [id number] 05/01/2025 Jasen Evans 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 C34.12 ; Osteopenia M85.80 ; Status post right knee replacement Z96.651 ; Restless legs G25.81 and BMI 30.0-30.9,adult Z68.30 Assessments Encounter Date Diagnosis (ICD Code) Assessment Notes Treatment Notes Treatment Clinical Notes Section Notes 05/01/2025 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 (ICD-10 - C34.12) 05/01/2025 Osteopenia (ICD-10 - M85.80) 05/01/2025 Status post right knee replacement (ICD-10 - Z96.651) 05/01/2025 Restless legs (ICD-10 - G25.81) 05/01/2025 BMI 30.0-30.9,adult (ICD-10 - Z68.30) Plan Of Treatment Next Appt Details Follow Up: 2 Months, Reason: Provider Name:Jasen Foster er, 07/31/2025 11:00:00 AM, [address] [facility] [address] [facility], [address], [place], [phone], Progress Notes * Gertrudis NOVAOB:1950 (74 yo F)Acc No.[id number]:05/01/2025 Progress Notes Patient: Gabriella REEDER Provider: Jasen Evans M.D. :1950 A ge:74 Y S ex:Female Date:05/01/2025 Address:[address] [place] [address] [id number] Subjective: * Chief Complaints: * 1 . 3 month f/u. 2. Needs labs, mammogram, bone density screening, & low dose chest CT. * HPI: C ardiology: 74 year old female presents with c/o Blood Pressure Elevated?Pt is here today for a 3 month check up on hypertension and hyperlipidemia. Pt sts she is doing well and has no concerns at this time. c/o Hyperlipidemia. E NT/respiratory: Saw Yanet last week. Has been back on Anoro which really helps. C onstitutional: See recent CT studies. Evidence of brain lesion. Radiation is planned, Saw Dr Sawant a week ago to review these worrisome findings. * ROS: D ERMATOLOGY: no R tootie. [...] Diagno stic Procedure: H MH -Pneumonia 12/29-, [facility] ER SOA 2017, see above 06/07-06/10/2018. * Family History: F ather: , heart disease. M other: , CHF. P aternal Grand Father: HTN.?Paternal Grand Mother: HTN. M aternal Grand Father: HTN. M aternal Grand Mother: HTN.?1 brother(s) , 1 sister(s) . 1 daughter(s) - healthy. . brother-[place]. Daughter of recurrent breast Ca 2016. * [...] puff(s) inhaled once a day , Taking amLODIPine Besylate-Valsartan 5-160 MG Tablet TAKE 1 TABLET ONCE DAILY , Taking Triamterene-HCTZ 75-50 MG Tablet 1/2 tab Orally Once a day , Taking Pramipexole Dihydrochloride 0.5 MG Tablet 1 tablet Orally Once a day , Taking Synthroid 100 MCG Tablet 1 tablet in the morning on an empty stomach Orally Once a day , Taking GNP Magnesium Oxide 250 mg Tablet TAKE ONE TABLET BY MOUTH EVERY DAY AT BEDTIME , Taking Furosemide 20 mg Tablet TAKE ONE TABLET BY MOUTH EVERY DAY , Taking Potassium Chloride ER 10 MEQ Tablet Extended Release 1 tablet Orally Once a day , Not-Taking traMADol HCl 50 MG Tablet 1 tablet as needed Orally three times a day as needed , Medication List reviewed and reconciled with the patient * Allergies: N .K.D.A. Objective: * Vitals: W t: 181.4, Temp: 97.9, BP: 110/64, HR: 94, O2 Sat: 94% on 3L, Nurse: anthony, Ht: 65, BMI:30.18. * Examination: G eneral Examination: General Appearance: [...] left lung - C34.12 (Primary) 2 . O steopenia - M85.80 3 . S tatus post right knee replacement - Z96.651 ? 4 . R estless legs - G25.81 5 . B [place] 30.0-30.9,adult - Z68.30 ? Plan: * Treatment: * Procedure Codes: G 2211 Complex e/m visit add on, G8783 BP SCR PRFRM RCMDD DEFIND SCR INTVL, 3074F SYST BP LT 130 MM HG, 3078F DIAST BP < 80 MM HG * Follow Up: 2 Months * Images: Drawin05/01/25 [facility] Billing Information: * Visit Code: 45027 Office Visit, Est Pt., Level 3. * Procedure Codes: G2211 Complex e/m visit add on. G8783 BP SCR PRFRM RCMDD DEFIND SCR INTVL. 3074F SYST BP LT 130 MM HG. 3078F DIAST BP < 80 MM HG. * Electronic signature of Jasen Evans MD on 05/29/2025 at 09:30 AM EDT Sign off status: Pending * Provider: Jasen Evans M.D. Date: 0 05/01/2025 Generated for Frankii lorraine/Ti/eTransmitting on: 1 09:30 AM EDT History and Physical Notes * HPI (History of Present Illness) Category Sub-Category Detail Notes Category Not es Cardiology Blood Pressure Elevated Pt is he re today for a 3 month check up on hypertension and hyperlipidemia. Pt sts she is doing well and has no concerns at this time Hyperlipidemia Examination Category Sub-Category Detail Notes Category Not [...]
--- OUTSIDE RECORDS SUMMARY | 2025-05-29 09:28 | XMS_ITS | Patient Health Record ---
Author Organization [facility] Address [address] [place] [id number] Care Team Providers Care Product Mgmt Dev Manager Name Role Phone Jasen Evans Primary Care Provider Allergies No Known Allergies Results Component Value Reference Range Notes P-Basic Metabolic Panel (BMP ) Reviewed date:09/14/2024 01:09:49 PM Interpretation:satisfactory Performing Lab: Notes/Report: Test performed by [facility] [address] [place], [place] [address] , [address], [place] [address] Mohsen Puckett MD, Utility Worker [place] CLIA: [id number] Sodium 138 135-145 mmol/L Potassium 4.5 3.5-5.3 mmol/L Chloride 96 97-108 mmol/L CO2 29 22-32 mmol/L Glucose 88 65-99 mg/dL BUN 15 8-23 mg/dL Creatinine 1.00 0.50-1.00 mg/dL Calcium 9.6 8.6-10.4 mg/dL eGFR by Creatinine 60 >59 mL/min/1.73m2 CT Scan : Spine, Thoracic, w ithout contrast Reviewed date:07/26/2024 10:29:09 AM Interpretation:negative t-spine, left upper lobe lung nodule Performing Lab: Notes/Report: negative t-spine, left upper lobe lung nodule P-TSH Reviewed date:07/18/2024 01:07:28 PM Interpretation:0.41 Performing Lab: Notes/Report: Test performed by [facility] [address] [place], [place] [address] [place] , [address], [place] [address] Mohsen Puckett MD, Utility Worker [place] CLIA: [id number] TSH 0.41 0.43-5.25 mU/L P-Basic Metabolic Panel (BMP ) Reviewed date:07/18/2024 01:07:27 PM Interpretation:Na 133, cl 96, gluc 108 Performing Lab: Notes/Report: Test performed by [facility] [address] [facility] , [place] [address] Mohsen Puckett MD, Utility Worker [place] CLIA: [id number] Sodium 133 135-145 mmol/L Potassium 3.8 3.5-5.3 mmol/L Chloride 96 97-108 mmol/L CO2 26 22-32 mmol/L Glucose 108 65-99 mg/dL BUN 17 8-23 mg/dL Creatinine 0.70 0.50-1.00 mg/dL Calcium 9.5 8.6-10.4 mg/dL eGFR by Creatinine 92 >59 mL/min/1.73m2 Glycohemoglobin A1c (in hous e) Reviewed date:07/18/2024 01:07:28 PM Interpretation:5.9 Performing Lab: Notes/Report: 5.9 glycohemoglobin 5.9% 5 - 6.5 % CBC Venipuncture (in house) Reviewed date:02/03/2025 03:44:58 [...] 103, alk phos 122 Performing Lab: Notes/Report: CLIA: [id number] Mohsen Puckett MD, Utility Worker [place] [address] [facility] , [place] [address] Test performed by [facility] Sodium 134 135-145 mmol/L Potassium 4.2 3.5-5.3 [...] Interpretation:Normal Performing Lab: Notes/Report: Test performed by [facility], [address] , [address], [place] [address] Mohsen Puckett MD, Utility Worker [place] CLIA: [id number] TSH 2.54 0.43-5.25 mU/L Medications Medication SIG [...] W/U Status Risk Notes Problem Essential hypertension (87692213) Essential hypertension (I10) Active confirmed Problem Abnormal mammogram (471606375) Abnormal mammogram (R92.8) Active confirmed Problem Solitary nodule of lung (606613011) Lung nodule (R91.1) Active confirmed Problem Osteopenia (577036707) Osteopenia (M85.80) Active confirmed Problem Sebaceous cyst (071645611) Sebaceous cyst (L72.3) Active confirmed Problem Body mass index 30+ - obesity (400050615) BMI 30.0-30.9,adult (Z68.30) Active confirmed Problem Restless legs (19731142) Restless legs (G25.81) Active confirmed Problem Localized edema (5501851) Localized edema (R60.0) Active confirmed Problem Mixed hyperlipidemia (253949796) Mixed hyperlipidemia (E78.2) Active confirmed Problem Primary insomnia (5436671) Primary insomnia (F51.01) Active confirmed Problem Pulmonary nodule (453106754) Pulmonary nodule (R91.1) Active confirmed Problem Acquired hypothyroidism (689714143) Acquired hypothyroidism (E03.9) Active confirmed Problem Pulmonary emphysema (72933769) Pulmonary emphysema, unspecified emphysema type (J43.9) Active confirmed Problem Reactive depression (situational) (01858322) Situational depression (F43.21) Active confirmed Problem Dermatitis (056566122) Dermatitis (L30.9) Active confirmed Problem Osteoarthritis of knee (508767341) Primary osteoarthritis of right knee (M17.11) Active confirmed Problem Osteoarthritis of knee (377478896) Primary osteoarthritis of left knee (M17.12) Active confirmed Problem Artificial knee joint present (580680504728) Status post right knee replacement (Z96.651) Active confirmed Problem Malignant neoplasm of female breast (534103231) 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) Active confirmed Problem Fibrocystic breast changes (58932277) Fibrocystic breast disease (FCBD), unspecified laterality (N60.19) Active confirmed Problem Steatosis of liver (335502716) Steatosis of liver (K76.0) Active confirmed Problem Radicular pain (37686108) Radicular pain (M54.10) Active confirmed Problem Malignant neoplasm of upper lobe, bronchus or lung (979017800) 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) Active confirmed Vital Signs Heart Rate 94 /min 05/01/2025 Blood pressure diastolic 64 mm Hg 05/01/2025 Height 65 in 05/01/2025 Blood pressure systolic 110 mm Hg 05/01/2025 Weight 181.4 lbs 05/01/2025 BMI 30.18 kg/m2 05/01/2025 Encounters Encounter Location Date Provider Diagnosis [facility] [address] [facility] [address] [place] [id number] 07/11/2024 Jasen Evans Essential hypertensi on I10 ; Pulmonary emphysema, unspecified emphysema type J43.9 ; Acquired hypothyroidism E03.9 ; Hyperglycemia R73.9 ; Radicular pain M54.10 and Restless leg syndrome G25.81 [facility] [address] [facility] [address] [place] [id number] 09/08/2024 Jasen Evans Localized edema R60. 0 ; Pulmonary emphysema, unspecified emphysema type J43.9 ; Essential hypertension I10 and 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 C34.12 [facility] [address] [place], [place] [id number] 09/15/2024 J Rob Evans 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 C34.12 and Localized edema R60.0 [facility] [address] [place], [place] [id number] 01/20/2025 J Rob Evans 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 C34.12 ; Ductal carcinoma of left breast C50.912 ; Acquired hypothyroidism E03.9 ; Pulmonary emphysema, unspecified emphysema type J43.9 ; Essential hypertension I10 and BMI 28.0-28.9,adult Z68.28 [facility] [address] [place], [place] [id number] 05/01/2025 J Rob Evans 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 C34.12 ; Osteopenia M85.80 ; Status post right knee replacement Z96.651 ; Restless legs G25.81 and BMI 30.0-30.9,adult Z68.30 [facility] [address] [place], [place] [id number] 06/28/2024 Jasen Evans [facility] [address] [place], [place] [id number] 07/18/2024 Jasen Evans [facility] [address] [place], [place] [id number] 10/07/2024 Jasen 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 [facility] [address] [place], [place] [id number] 12/05/2024 Jasen 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 [facility] [address] [place], [place] [id number] 01/18/2025 Jasen Evans [facility] [address] [place], [place] [id number] 01/23/2025 Jasen Evans [facility] [address] [place], [place] [id number] 01/27/2025 Jasen Evans [facility] [address] [place], [place] [id number] 01/31/2025 Jasen Evans [facility] [address] [place], [place] [id number] 03/10/2025 Jasen Evans Assessments Encounter Date Diagnosis (ICD Code) Assessment Notes Treatment Notes Treatment Clinical Notes Section Notes 09/15/2024 Localized edema (ICD-10 - R60.0) 09/15/2024 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 (ICD-10 - C34.12) continue current therapy 10/07/2024 Restless leg syndrome (ICD-10 - G25.81) 01/20/2025 Ductal carcinoma of left breast (ICD-10 - C50.912) 01/20/2025 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 (ICD-10 - C34.12) 05/01/2025 Osteopenia (ICD-10 - M85.80) 05/01/2025 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 (ICD-10 - C34.12) 12/05/2024 Restless leg syndrome (ICD-10 - G25.81) 09/08/2024 Localized edema (ICD-10 - R60.0) 09/08/2024 Pulmonary emphysema, unspecified emphysema type (ICD-10 - J43.9) 07/11/2024 Essential hypertension (ICD-10 - I10) 07/11/2024 Pulmonary emphysema, unspecified emphysema type (ICD-10 - J43.9) 07/11/2024 Acquired hypothyroidism (ICD-10 - E03.9) 05/01/2025 Status post right knee replacement (ICD-10 - Z96.651) 09/08/2024 Essential hypertension (ICD-10 - I10) 01/20/2025 Acquired hypothyroidism (ICD-10 - E03.9) 01/20/2025 Pulmonary emphysema, unspecified emphysema type (ICD-10 - J43.9) 05/01/2025 Restless legs (ICD-10 - G25.81) 09/08/2024 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 (ICD-10 - C34.12) 07/11/2024 Hyperglycemia (ICD-10 - R73.9) 07/11/2024 Radicular pain (ICD-10 - M54.10) 05/01/2025 BMI 30.0-30.9,adult (ICD-10 - Z68.30) 01/20/2025 Essential hypertension (ICD-10 - I10) 01/20/2025 BMI 28.0-28.9,adult (ICD-10 - Z68.28) 07/11/2024 Restless leg syndrome (ICD-10 - G25.81) 01/18/2025 Other CancelRx Response got Denied on 2025-01-25 08:28:56 for 'Synthroid 125 MCG Tablet'[employer] [facility] Notes: Patient unknown to the Prescriber. Plan Of Treatment Pending Test Test Name Order Date Mammogram 04/24/2025 Next Appt Details Provider Name:Jasen Foster er, 07/31/2025 11:00:00 AM, [address], [address], [place], [place], [id number], Insurance Providers Payer Name Payer Address Payer Phone Subscriber Number Group Number Insured Name Patient Relationship to Insured Coverage Start Date Coverage End Date [employer] [address] [place] [phone] [id number] Gabriella Grider Self - patient is the [...] Hospitalization History Reason Date(Month/Year) see above 06/07-06/10/2018 [facility] ER SOA 2017 HM -Pneumonia 12/29-
--- OUTSIDE RECORDS SUMMARY | 2025-05-29 09:28 | XMS_ITS | Clinical Summary ---
Author Organization Healthcare Address [address] [place] [address] Care Team Providers Care Bus Assistant Name Role Phone System, Provider Not In [...] - PPSV23, PCV20, or PCV21) 11/10/2018 09/15/2018 [id number] Vaccine (3 - Moderna risk series) 01/02/2021 [...] Health Maintenance Insurance [employer] MED[employer]ARE Care Teams Bus Assistant Relationship Specialty Start Date End Date System, Provider Not In, [facility] [place] [address] PCP - General Family Medicine 07/18/24
--- OUTSIDE RECORDS SUMMARY | 2025-05-29 09:29 | XMS_ITS | Encounter Summary ---
Author Organization Healthcare Address [address] [place] [address] Care Team Providers Care Independent Distributor Name Role Phone System, Provider Not In MD Primary Care Provider Unavailable Encounter Details Date Type Department Care Team ([facility] st Contact Info) Description 06/27/2024 Orders Only External Location [address] [place] [phone] Provider, External Social History Tobacco Use Types [...] on filedocumented in this encounter Care Teams Independent Distributor Relationship Specialty Start Date End Date System, Provider Not In, [address] [place] [address] PCP - General Family Medicine 07/18/24 documented as of this encounter
--- OUTSIDE RECORDS SUMMARY | 2025-05-29 09:29 | XMS_ITS | Encounter Summary ---
Author Organization Healthcare Address [address] [place] [address] Care Team Providers Care Fitting Room Attendant Name Role Phone System, Provider Not In MD Primary Care Provider Unavailable Encounter Details Date Type Department Care Team (Late st Contact Info) Description 06/27/2024 Orders Only External Location [address] [place] [address] Provider, External Social History Tobacco Use Types [...] on filedocumented in this encounter Care Teams Fitting Room Attendant Relationship Specialty Start Date End Date System, Provider Not In, [address] [place] [address] PCP - General Family Medicine 07/18/24 documented as of this encounter
--- OUTSIDE RECORDS SUMMARY | 2025-05-29 09:29 | XMS_ITS | Encounter Summary ---
Author Organization Healthcare Address [address] [place] [address] Care Team Providers Care Mold Changer Name Role Phone System, Provider Not In MD Primary Care Provider Unavailable Encounter Details Date Type Department Care Team (Late st Contact Info) Description 01/19/2024 Orders Only External Location [address] [place] [address] Provider, External Social History Tobacco Use Types [...] on filedocumented in this encounter Care Teams Mold Changer Relationship Specialty Start Date End Date System, Provider Not In, [address] [place] [address] PCP - General Family Medicine 07/18/24 documented as of this encounter
--- OUTSIDE RECORDS SUMMARY | 2025-05-29 09:31 | XMS_ITS | CCD ---
Author Name Interface, [id number] lity Address [address] [facility] Address [address] [place], [place] [id number] Reason for Visit Social History Date Name Value 05/11/2020 Sex Female
--- NOTE | 2025-05-29 10:37 | MR_ITS ---
FINAL REPORT TECHNIQUE: Multiplanar MR, without and with gadolinium enhancement CLINICAL HISTORY: SECONDARY MALIGANT NEOPLASM OF BRAIN radiation on brain x 6 days ago f/u brain tumors COMPARISON: Report from 04/20/2025, images from 09/06/2024 FINDINGS: There is no acute infarct. Mild edema is seen in the right frontal vertex and right lateral cerebellar hemisphere corresponding to enhancing lesions on prior exam. There are a few other scattered white matter signal changes likely related to mild chronic microvascular disease. Ventricles are normal in size. Postcontrast imaging demonstrates an enhancing lesion in the medial right frontal lobe measuring 13 x 11 x 13 mm without significant mass effect. There is a bilobed lesion of the right lateral cerebellar hemisphere measuring 15 x 11 x 11 mm with a second enhancing lesion in the right cerebellar hemisphere more inferiorly measuring at 9 mm. There is a fourth enhancing lesion measuring 5 mm in the left frontal lobe. IMPRESSION: Enhancing lesions as above most suspicious for metastasis. No hemorrhage or significant mass effect. Reviewed, Interpreted and Dictated by Trey Davidson MD Transcribed by Madisyn Bauer Authenticated and [facility]
[2025-05-29] MEDS: SODIUM CHLORIDE 0.9% 10ML SYR (RAD ONLY) 10 ML IV (11:27)
[2025-05-29] MEDS: GADOTERIDOL INJ 20ML SYRINGE 16 ML IV (11:27)
== END 2025-05-29 23:59 | disposition home or self-care (01) ==
LOC: RAD 09:07
PROVIDERS: PCP Family Medicine; Visit Provider Internal Medicine
DX: C79.31 Secondary malignant neoplasm of brain (principal); R90.89 Other abnormal findings on diagnostic imaging of central nervous system
CPT/HCPCS: 70553; A9576

== ENCOUNTER 2025-06-01 10:42 | Outpatient (CLI) | payer MEDICARE, SELFPAY ==
[2025-06-01 11:03] LABS: Hematocrit 39.6 % (37.0-47.0); Hemoglobin 12.5 g/dL (12.2-16.2); Immature Granulocytes % 0.4 %; Mean Corpuscular HGB Conc 31.6 g/dL (31.8-35.4); Mean Corpuscular Hemoglobin 27.4 pg (27.0-31.2); Mean Corpuscular Volume 86.8 fl (81-99); Nucleated Red Blood Cells % 0 %; Platelet Count 255 K/mm3 (142-424); Red Blood Count 4.56 M/mm3 (4.20-5.40); Red Cell Distribution Width-SD 47.6 fL; White Blood Count 7.3 K/mm3 (4.8-10.8)
--- OUTSIDE RECORDS SUMMARY | 2025-06-01 11:03 | XMS_ITS | Clinical Summary ---
Author Organization Healthcare Address [address] [place] [address] Care Team Providers Care Tierce Filler Name Role Phone System, Provider Not In [...] - PPSV23, PCV20, or PCV21) 11/10/2018 09/15/2018 RAR-KALPX-05 Vaccine (3 - Moderna risk series) 01/02/2021 12/05/2020, 11/07/2020 [facility]-Influenza Vaccine (#1) 04/10/202506/10, 07/01/2021, 07/16/2020, Additional history exists [facility]-DTaP,Tdap,and Td Vaccines (3 - Td or Tdap) 07/09/2027 07/09/2017, 12/18/2006 UKY-Obesity Intervention Completed 07/18/2024 UKY-Lung Cancer Screening Discontinued 08/12/2024, 10/2024 HPV Vaccines Aged Out No longer eligi [...] Fredi Melgar MD on 08/12/2024 9:40 AM us Higinio Amaya MD IMG CT PROCEDURES Final Resul t from Last 3 Months or Most Recently Relevant to Health Maintenance Insurance [employer] MED[employer]ARE Care Teams Tierce Filler Relationship Specialty Start Date End Date System, Provider Not In, [place] [address] PCP - General Family Medicine 07/18/24
--- OUTSIDE RECORDS SUMMARY | 2025-06-01 11:04 | XMS_ITS | Encounter Summary ---
Author Organization Healthcare Address [address] [place] [address] Care Team Providers Care Stock Raiser Name Role Phone System, Provider Not In MD Primary Care Provider Unavailable Encounter Details Date Type Department Care Team (Late st Contact Info) Description 06/27/2024 Orders Only External Location [address] [place] [address] Provider, External Social History Tobacco Use Types [...] on filedocumented in this encounter Care Teams Stock Raiser Relationship Specialty Start Date End Date System, Provider Not In, [address] [place] [address] PCP - General Family Medicine 07/18/24 documented as of this encounter
--- OUTSIDE RECORDS SUMMARY | 2025-06-01 11:04 | XMS_ITS | CCD ---
Author Name Interface, [id number] lity Address [address] [facility] Address [address] [place], [place] [id number] Reason for Visit Social History Date Name Value 05/11/2020 Sex Female
--- OUTSIDE RECORDS SUMMARY | 2025-06-01 11:04 | XMS_ITS | Encounter Summary ---
Author Organization Healthcare Address [address] [place] [address] Care Team Providers Care School Guidance Counselor Name Role Phone System, Provider Not In MD Primary Care Provider Unavailable Encounter Details Date Type Department Care Team (Late st Contact Info) Description 01/19/2024 Orders Only External Location [address] [place] [address] Provider, External Social History Tobacco Use Types [...] on filedocumented in this encounter Care Teams School Guidance Counselor Relationship Specialty Start Date End Date System, Provider Not In, [address] [place] [address] PCP - General Family Medicine 07/18/24 documented as of this encounter
--- OUTSIDE RECORDS SUMMARY | 2025-06-01 11:04 | XMS_ITS | Encounter Summary ---
Author Organization Healthcare Address [address] [place] [address] Care Team Providers Care Insurance Verification Rep Name Role Phone System, Provider Not In MD Primary Care Provider Unavailable Encounter Details Date Type Department Care Team ([facility] [place] [facility] st Contact Info) Description 06/27/2024 Orders Only External Location [address] [place] [phone] Provider, External Social History Tobacco Use Types [...] on filedocumented in this encounter Care Teams Insurance Verification Rep Relationship Specialty Start Date End Date System, Provider Not In, [address] [place] [address] PCP - General Family Medicine 07/18/24 documented as of this encounter
[2025-06-01 12:17] LABS: Albumin Level 3.8 g/dl (3.5-5.0); Chloride 84 mmol/L (98-107)
[2025-06-01 12:18] LABS: Potassium 3.8 mmoL/L (3.5-5.1); Sodium 130 mmol/L (136-145)
[2025-06-01 12:20] LABS: Alanine Aminotransferase 17 U/L (12-78); Albumin/Globulin Ratio 1.5 (1.1-1.8); Alkaline Phosphatase 125 U/L (38-126); Aspartate Amino Transferase 30 U/L (14-36); Bilirubin,Total 0.4 mg/dl (0.2-1.3); Blood Urea Nitrogen 20 mg/dl (7-17); Creatinine,Serum 0.90 mg/dl (0.52-1.04); Estimated Glomerular Filt Rate 62 ml/min (>60); GFR (African American) 74 ML/MIN (>60); Globulin 2.5 g/dL (1.3-3.2); Total Protein,Serum 6.3 g/dl (6.3-8.2)
[2025-06-01 12:21] LABS: Calcium 9.1 mg/dl (8.4-10.2); Glucose 102 mg/dl (74-100)
[2025-06-01 12:41] LABS: Anion Gap 8.8 mEq/L (5-15); Carbon Dioxide 41 mmol/L (22.0-30.0)
== END 2025-06-01 23:59 | disposition home or self-care (01) ==
LOC: LAB 10:43
PROVIDERS: PCP Family Medicine; Visit Provider Internal Medicine Medical Oncology
DX: C34.12 Malignant neoplasm of upper lobe, left bronchus or lung (principal)
CPT/HCPCS: 36415; 80053; 85025

== ENCOUNTER 2025-06-08 11:09 | Outpatient (CLI) | payer MEDICARE, SELFPAY ==
--- OUTSIDE RECORDS SUMMARY | 2024-07-11 05:30 | XMS_ITS ---
Author Organization [facility] Address [address] [place] [id number] Care Team Providers Care Multimedia Teacher Name Role Phone Jasen Evans Primary Care Provider [phone] Allergies No Known Allergies Results Component Value Reference Range Notes Glycohemoglobin A1c (in hous e) Reviewed date:07/18/2024 01:07:28 PM Interpretation:5.9 Performing Lab: Notes/Report: 5.9 glycohemoglobin 5.9% 5 - 6.5 % P-Basic Metabolic Panel (BMP ) Reviewed date:07/18/2024 01:07:27 PM Interpretation:Na 133, cl 96, gluc 108 Performing Lab: Notes/Report: Test performed by [facility] [address] [place] [address] , [place] [address] Mohsen Puckett MD, Shuttle Van Driver CLIA: [id number] Sodium 133 135-145 mmol/L Potassium 3.8 3.5-5.3 mmol/L Chloride 96 97-108 mmol/L CO2 26 22-32 mmol/L Glucose 108 65-99 mg/dL BUN 17 8-23 mg/dL Creatinine 0.70 0.50-1.00 mg/dL Calcium 9.5 8.6-10.4 mg/dL eGFR by Creatinine 92 >59 mL/min/1.73m2 P-TSH Reviewed date:07/18/2024 01:07:28 PM Interpretation:0.41 Performing Lab: Notes/Report: Test performed by [facility] [address] [place] [address] , [address], [place] [address] Mohsen Puckett MD, Shuttle Van Driver CLIA: [id number] TSH 0.41 0.43-5.25 mU/L CT Scan : [...] W/U Status Risk Notes Problem Radicular pain (37923372) Radicular pain (M54.10) Active confirmed Vital Signs Blood pressure systolic 126 mm Hg 07/11/20 24 Blood pressure diastolic 72 mm Hg 024 Heart Rate 84 /min 07/11/2024 Height 65 in 07/11/2024 Weight 177.2 lbs 07/11/2024 BMI 29.48 kg/m2 07/11/2024 Encounters Encounter Location Date Provider Diagnosis [facility] [address] [place] [id number] 07/11/2024 Jasen Evans Essential hypertensi on I10 [address], [place], [id number], Progress Notes * Magdalena NOVA:1950 (74 yo F)Acc No.[id number]:07/11/2024 Progress Notes Patient: Gabriella REEDER Provider: Jasen Evans M.D. :1950 A ge:74 Y S ex:Female Date:07/11/2024 Address:[address], [place], [id number] Subjective: * Chief Complaints: * 1 . [...] sister(s) . 1 daughter(s) - healthy. . brother-[place]. Daughter of recurrent breast Ca 2016. * [...] > precert is not required according to [facility] hotline; CPT code 06700; faxed to [facility] Clementina Sosa 07/26/2024 10:29:10 AM > , See phone encounter 5.?Restless leg syndrome? Start Pramipexole Dihydrochloride Tablet, 0.5 MG, 1 tablet, Orally, Once a day, 30 day(s), 30, Refills 4;?Start clonazePAM Tablet, 0.5 MG, 1 tablet, Orally, At Bed Time, 30, Refills 2.? * Procedure Codes: [address] [place], [address] CAPILLARY BLOOD DRAW, [address] GLYCATED HEMOGLOBIN TEST, Modifiers: QW * Follow Up: 4 Weeks * Images: Billing Information: * Visit Code: 93318 Office Visit, Est Pt., Level 4. * Procedure Codes: [address] [place]. [address] CAPILLARY BLOOD DRAW. 129[address] GLYCATED HEMOGLOBIN TEST. Modifiers: QW * Electronic signature of Jasen Evans MD on 06/08/2025 at 11:21 AM EDT Sign off status: Pending * Provider: Jasen Evans M.D. Date: 09/11/2023 Generated for Malia peters/Ti/Fang on: 11:21 AM EDT History and Physical Notes * [...]
--- OUTSIDE RECORDS SUMMARY | 2024-08-15 07:15 | XMS_ITS ---
Author Organization [facility] Address [address] [facility] [address] [facility] [address] [place] [phone] Care Team Providers Care Die Sinking Machine Operator Name Role Phone Jasen Evans Primary Care Provider REASON FOR VISIT 1 month ckup Encounters Encounter Location Date Provider Diagnosis [facility] [address] [facility] [address] [place] [phone] 08/15/2024 Jasen Evans Plan Of Treatment Next Appt Details Provider Name:Jasen Foster er, 07/31/2025 11:00:00 AM, [address] [facility], [address], [place], [phone], Progress Notes * Nj GRIDERWeiOB:1950 (74 yo F)Acc No.[id number]:08/15/2024 Progress Notes Patient: Gabriella REEDER Provider: Jasen Evans M.D. :1950 A ge:74 Y S ex:Female Date:08/15/2024 Address:[id number] Subjective: * Chief Complaints: * 1 . 1 month ckup. * Medical History: Objective: * Vitals: Assessment: Plan: * Treatment: * Images: Billing Information: * Visit Code: * Procedure Codes: * Electronic signature of Jasen Evans MD on 06/08/2025 at 11:20 AM EDT Sign off status: Pending * Provider: Jasen Evans M.D. Date: 0 08/15/2024 Generated for Malia peters/Ti/Fang on: 1 11:20 AM EDT
--- OUTSIDE RECORDS SUMMARY | 2024-09-08 11:45 | XMS_ITS ---
Author Organization [facility] Address [address] [facility] [address] [place] [phone] Care Team Providers Care Academic Vice President Name Role Phone Jasen Evans Primary Care Provider Allergies No Known Allergies Results Component Value Reference Range Notes P-Basic Metabolic Panel (BMP ) Reviewed date:09/14/2024 01:09:49 PM Interpretation:satisfactory Performing Lab: Notes/Report: Test performed by [facility] [address] [place] [address] , [address], [place] [address] Mohsen Puckett MD, Machine Scallop Cutter CLIA: [id number] Sodium 138 135-145 mmol/L Potassium 4.5 3.5-5.3 [...] W/U Status Risk Notes Problem Localized edema (4910023) Localized edema (R60.0) Active confirmed Problem Malignant neoplasm of upper lobe, bronchus or lung (003030980) 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) Active confirmed Vital Signs Blood pressure systolic 130 mm Hg 09/08/19 25 Blood pressure diastolic 84 mm Hg 025 Heart Rate 111 /min 09/08/2024 Height 65 in 09/08/2024 Weight 171 lbs 09/08/2024 BMI 28.45 kg/m2 09/08/2024 Encounters Encounter Location Date Provider Diagnosis [facility] [address] [facility] [address] [place] [address], [place] [phone] 09/08/2024 Jasen Evans Localized edema R60. 0 [address], [place], [phone], Progress Notes * Gertrudis NOVAOB:1950 (74 yo F)Acc No.[id number]:09/08/2024 Progress Notes Patient: Gabriella REEDER Provider: Jasen Evans M.D. :1950 A ge:74 Y S ex:Female Date:09/08/2024 Address:[address] [place] [address] [place], [id number] Subjective: * Chief Complaints: * 1 . [...] sister(s) . 1 daughter(s) - healthy. . brother-[place]. Daughter of recurrent breast Ca 2016. * [...] G 2211 Complex e/[place], [address] PULSE OX * Follow Up: 1 Week * Images: Billing Information: * Visit Code: 51251 Office Visit, Est Pt., Level 3. * Procedure Codes: G2211 Complex e/[place]. [address] PULSE OX. * Electronic signature of J Gilberto Evans MD on 06/08/2025 at 11:21 AM EDT Sign off status: Pending * Provider: Jasen Evans M.D. Date: 0 09/08/2024 Generated for Malia peters/Ti/Genesisitting on: 11:21 AM EDT History and Physical [...]
--- OUTSIDE RECORDS SUMMARY | 2024-09-15 12:15 | XMS_ITS ---
Author Organization [facility] Address [address] [place] [phone] Care Team Providers Care Mft Name Role Phone Jasen Evans Primary Care [...] [address] [place] [phone] 09/15/2024 Jasen Eavns Small cell carcinoma of upper lobe of [...] [address], [place], [phone], Progress Notes * AVTAR GertrudisOB:1950 (74 yo F)Acc No.[id number]:09/15/2024 Progress Notes Patient: Gabriella REEDER Provider: Jasen Evans M.D. :1950 A ge:74 Y S ex:Female Date:09/15/2024 Address:[place], [id number] Subjective: * Chief Complaints: * 1 . [...] sister(s) . 1 daughter(s) - healthy. . brother-[place]. Daughter of recurrent breast Ca 2016. * [...] * Images: Billing Information: * Visit Code: 40796 Office Visit, Est Pt., Level 3. * Procedure Codes: 34517 PULSE OX. * Electronic signature of Jasen Evans MD on 06/08/2025 at 11:20 AM EDT Sign off status: Pending * Provider: Jasen Evans M.D. Date: 0 09/15/2024 Generated for Malia peters/Ti/Luizasmitting on: 11:20 AM EDT History and Physical Notes * [...]
--- OUTSIDE RECORDS SUMMARY | 2025-01-20 05:45 | XMS_ITS ---
Author Organization [facility] Address [address] [place] [id number] Care Team Providers Care Director Software Name Role Phone Jasen Evans Primary Care Provider Allergies No Known Allergies Results Component Value Reference Range Notes CBC Venipuncture (in house) Reviewed date:02/03/2025 03:44:58 PM Interpretation: Performing Lab: Notes/Report: wbc 9.9 3.5 - 10 lymph 13.7% 15 - 50 mid 4.6% 2 - 15 gran 81.7% 35 - 80 rbc 4.44 3.5 - 5.5 hgb 12.2 11.5 - 16.5 hct 37.9 35 - 55 mcv 85.5 75 - 100 mch 27.5 25 - 35 mchc 32.1 31 - 38 platlet 381 100 - 400 P-Comprehensive Metabolic Pa sha (CMP) Reviewed date:03/10/2025 09:52:44 AM Interpretation:Na 134, chlor 89, gluc 103, alk phos 122 Performing Lab: Notes/Report: Test performed by [facility]0 [facility] , [address], [place] [address] Mohsen Puckett MD, Electric Organ Inspector And Repairer CLIA: [id number] Sodium 134 135-145 mmol/L Potassium 4.2 3.5-5.3 mmol/L Chloride 89 97-108 mmol/L CO2 30 22-32 mmol/L Glucose 103 65-99 mg/dL BUN 17 8-23 mg/dL Creatinine 0.82 0.50-1.00 mg/dL Calcium 9.4 8.6-10.4 mg/dL eGFR by Creatinine 76 >59 mL/min/1.73m2 Protein 6.7 6.0-8.3 g/dL Albumin 4.4 3.5-5.3 g/dL Alkaline Phosphatase 122 35-121 IU/L ALT (SGPT) 14 <5-47 IU/L AST (SGOT) 16 <5-40 IU/L Bilirubin, Total 0.2 <0.2-1.2 mg/dL A/G Ratio 1.9 1.1-2.5 P-TSH Reviewed date:03/10/2025 09:52:44 AM Interpretation:Normal Performing Lab: Notes/Report: Test performed by [employer], [address] , [facility], [place] [address] Mohsen Puckett MD, Electric Organ Inspector And Repairer CLIA: [id number] TSH 2.54 0.43-5.25 mU/L REASON FOR VISIT med check Medications Medication SIG (Take, Route, Frequency, Duration) Notes Start Date End Date Status Pramipexole Dihydrochloride 0.5 MG 1 tablet Orally Once a day; Duration: 30 days 07/11/2024 Active Furosemide 20 mg TAKE ONE TABLET BY MOUTH EVERY DAY; Duration: 30 Active Triamterene-HCTZ 75-50 MG 1/2 tab Orally Once a day; Duration: 90 days Active traMADol HCl 50 MG 1 tablet as needed Orally three times a day as needed 07/11/2024 Not-Taking Synthroid 100 MCG 1 tablet in the morning on an empty stomach Orally Once a day; Duration: 30 days patient needs appt Active Potassium Chloride ER 10 MEQ 1 tablet Orally Once a day; Duration: 90 days Active Anoro Ellipta 62.5-25 MCG/ACT 1 puff(s) inhaled once a day; Duration: 30 day(s) Active amLODIPine Besylate-Valsartan 5-160 MG TAKE 1 TABLET ONCE DAILY; Duration: 90 Active Vital Signs Blood pressure systolic 102 mm Hg 01/21/20 25 Blood pressure diastolic 58 mm Hg 025 Heart Rate 78 /min 01/20/2025 Height 65 in 01/20/2025 Weight 174.0 lbs 01/20/2025 BMI 28.95 kg/m2 01/20/2025 ZA Encounters Encounter Location Date Provider Diagnosis [facility] [address] [place] [id number] 01/20/2025 Jasen Evans 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 C34.12 ; Ductal carcinoma of left breast C50.912 ; Acquired hypothyroidism E03.9 ; Pulmonary emphysema, unspecified emphysema type J43.9 ; Essential hypertension I10 and BMI 28.0-28.9,adult Z68.28 Assessments Encounter Date Diagnosis (ICD Code) Assessment Notes Treatment Notes Treatment Clinical Notes Section Notes 01/20/2025 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 (ICD-10 - C34.12) 01/20/2025 Ductal carcinoma of left breast (ICD-10 - C50.912) 01/20/2025 Acquired hypothyroidism (ICD-10 - E03.9) 01/20/2025 Pulmonary emphysema, unspecified emphysema type (ICD-10 - J43.9) 01/20/2025 Essential hypertension (ICD-10 - I10) 01/20/2025 BMI 28.0-28.9,adult (ICD-10 - Z68.28) Plan Of Treatment Medication Medication Name Sig Start Date Stop Date Notes Pramipexole Dihydrochloride 0.5 MG 1 tab let Orally Once a day; Duration: 30 days 07/11/2024 Furosemide 20 mg TAKE ONE TABLET BY M OUTH EVERY DAY; Duration: 30 Triamterene-HCTZ 75-50 MG 1/2 tab Orally Once a day; Duration: 90 days clonazePAM 0.5 MG 1 tablet Orally At B ed Time 10/07/2024 Next Appt Details Follow Up: 3 Months, Reason: Provider Name:Jasen Foster er, 07/31/2025 11:00:00 AM, [address] [facility], [address], [place], [id number], Progress Notes * Gertrudis NOVAOB:1950 (74 yo F)Acc No.[id number]:01/20/2025 Progress Notes Patient: Gabriella REEDER Provider: Jasen Evans M.D. :1950 A ge:74 Y S ex:Female Date:01/20/2025 Address:[place], [id number] Subjective: * Chief Complaints: * 1 . Med check. * HPI: C ardiology: The patient is here for a check-up on Hypertension, Hyperlipidemia and Hypothyroidism. Pt states she is doing good and denies any new concerns. Pt states she is fasting. Pt states she is needing a refill for Furosemide and Pramipexole sent to clinic pharmacy. 74 year old female presents with c/o Short of Breath w ith exertion. Denies : Chest Pain. D enies : Dizziness. D enies : Palpitations. E NT/respiratory: Lung cancer. Followed by Dr. Holt, Dr. Lee, Dr. Campo. MRI of brain 09/06/24 reviewed today. Chest scan in November showed decrease in size of the lung lesion. Sees Dr. Campo in March. Sees Dr. Holt next week. * ROS: D ERMATOLOGY: no R tootie. [...] Diagno stic Procedure: H MH -Pneumonia 12/29-, [facility] ER SOA 2017, see above 06/07-06/10/2018. * Family History: F ather: , heart disease. M other: , CHF. P aternal Grand Father: HTN.?Paternal Grand Mother: HTN. M aternal Grand Father: HTN. M aternal Grand Mother: HTN.?1 brother(s) , 1 sister(s) . 1 daughter(s) - healthy. . brother-[place]. Daughter of recurrent breast Ca 2016. * [...] tablet Orally Once a day , Taking amLODIPine Besylate-Valsartan 5-160 MG Tablet TAKE 1 TABLET ONCE DAILY , Taking Triamterene-HCTZ 75-50 MG Tablet TAKE 1 TABLET ONCE DAILY , Taking clonazePAM 0.5 MG Tablet 1 tablet Orally At Bed Time , Taking Pramipexole Dihydrochloride 0.5 MG Tablet 1 tablet Orally Once a day , Taking Synthroid 100 MCG Tablet 1 tablet in the morning on an empty stomach Orally Once a day , Notes to Pharmacist: patient needs appt, Taking Furosemide 20 mg Tablet TAKE ONE TABLET BY MOUTH EVERY DAY , Not-Taking traMADol HCl 50 MG Tablet 1 tablet as needed Orally three times a day as needed , Medication List reviewed and reconciled with the patient * Allergies: N .K.D.A. Objective: * Vitals: W t: 174.0, Temp: 97.7, BP: 102/58, HR: 78, O2 Sat: 97% ON 4 lmp, Nurse: LEIGH, Ht: 65, BMI:28.95. ZA. * Examination: G eneral Examination: General Appearance: [...] B ack: mild dorsal kyphosis. E xtremities: t race leg edema. Assessment: * Assessment: 1. S mall cell carcinoma of upper lobe of left lung - C34.12 (Primary) 2 . D uctal carcinoma of left breast - C50.912 3 . A cquired hypothyroidism - E03.9? 4. P ulmonary emphysema, unspecified emphysema type - J43.9 5 . Essential hypertension - I10 6 . B [place] 28.0-28.9,adult - Z68.28 ? Plan: * Treatment: Value Reference Range A /G Ratio 1.9 1.1-2.5 - * A lbumin 4.4 3.5-5.3 - g/dL * A lkaline Phosphatase 122 H 35-121 - IU/L * A LT (SGPT) 14 <5-47 - IU/L * A ST (SGOT) 16 <5-40 - IU/L * B ilirubin, Total 0.2 <0.2-1.2 - mg/dL * B UN 17 8-23 - mg/dL * C alcium 9.4 8.6-10.4 - mg/dL * C hloride 89 L 97-108 - mmol/L * C O2 30 22-32 - mmol/L * C reatinine 0.82 0.50-1.00 - mg/dL * G lucose 103 H 65-99 - mg/dL * P otassium 4.2 3.5-5.3 - mmol/L * S odium 134 L 135-145 - mmol/L * P rotein 6.7 6.0-8.3 - g/dL * e GFR by Creatinine 76 >59 - mL/min/1.73m2 * Clementina Dacosta 03/10/2025 09:52 :36 AM EDT > See phone encounter ?LAB: CBC Venipuncture (in house) (Collection Date & Time - 01/20/2025)* Value Reference Range w bc 9.9 3.5 - 10 * l ymph 13.7% 15 - 50 * m id 4.6% 2 - 15 * g ran 81.7% 35 - 80 * r bc 4.44 3.5 - 5.5 * h gb 12.2 11.5 - 16.5 * h ct 37.9 35 - 55 * m cv 85.5 75 - 100 * m ch 27.5 25 - 35 * m chc 32.1 31 - 38 * p latyumiko 381 100 - 400 * Lucina Gill 01/20/2025 12:03: 22 PM EDT > 2.?Acquired hypothyroidism?LAB: P-TSH (Collection Date & Time - 01/20/2025 10:35 AM)?Normal* Value Reference Range T SH 2.54 0.43-5.25 - mU/L * Clementina Dacosta 03/10/2025 09:52 :36 AM EDT > See phone encounter 3.?Essential hypertension? Decrease Triamterene-HCTZ Tablet, 75-50 MG, 1/2 tab, Orally, Once a day, 90 days, Refills 0;?Refill Furosemide Tablet, 20 mg, TAKE ONE TABLET BY MOUTH EVERY DAY, 30, 30 Tablet, Refills 3;?Refill Pramipexole Dihydrochloride Tablet, 0.5 MG, 1 tablet, Orally, Once a day, 30 days, 30, Refills2;?Stop clonazePAM Tablet, 0.5 MG, 1 tablet, Orally, At Bed Time.?? * Procedure Codes: G 2211 Complex e/[place], [address] CBC WITH AUTO DIFF, 81702 VENIPUNCT, ROUTINE*, G8420 BMI<30 AND >=22 CALC & DOCU, G8950 PREHTN/HTN BP DOC INDCD F/U DOC, G8752 MOST RECENT SYSTOLIC BP < 140MM HG, G8754 MOST RECENT DIASTOLIC BP < 90MM HG * Follow Up: 3 Months * Images: Billing Information: * Visit Code: 15223 Office Visit, Est Pt., Level 4. * Procedure Codes: G2211 Complex e/[place]. [address] CBC WITH AUTO DIFF. 62594 VENIPUNCT, ROUTINE*. G8420 BMI<30 AND >=22 CALC & DOCU. G8950 PREHTN/HTN BP DOC INDCD F/U DOC. G8752 MOST RECENT SYSTOLIC BP < 140MM HG. G8754 MOST RECENT DIASTOLIC BP < 90MM HG. * Electronic signature of Jasen Evans MD on 06/08/2025 at 11:21 AM EDT Sign off status: Pending * Provider: Jasen Evans M.D. Date: 0 01/20/2025 Generated for Malia lorraine/Ti/eTransmitting on: 1 11:21 AM EDT History and Physical Notes * HPI (History of Present Illness) Category Sub-Category Detail Notes Category Not es ENT/respiratory Lung cancer. Followed by Dr. Holt, Dr. Lee, Dr. Campo. MRI of brain 09/06/24 reviewed today. Chest scan in November showed decrease in size of the lung lesion. Sees Dr. Campo in March. Sees Dr. Holt next week. Cardiology Short of Breath with exertion Chest Pain Palpitations Dizziness Examination Category Sub-Category Detail Notes Category Not es General Examination HEENT: unremarkable Heart: RSR Lungs: decreased breath rosaura nds Abdomen: soft and nontender, no organomegaly or masses, obese Extremities: trace leg edema General Appearance: NAD, wearing nasal O 2, note weight Skin: normal, no rash. Neurologic Exam: Intact, gait normal Neck: supple, no lymphaden opathy Oral cavity: no lesions, mucosa m oist and WNL, no erythema Peripheral pulses: normal Back: mild dorsal kyphosis Chest: normal shape and exp ansion
--- OUTSIDE RECORDS SUMMARY | 2025-05-01 07:45 | XMS_ITS ---
Author Organization [facility] Address [address] [facility] [address] [phone] Care Team Providers Care Back Feeder Plywood Layup Line Name Role Phone Jasen Evans Primary Care Provider [phone] Allergies No Known Allergies REASON FOR VISIT [...] Problem Body mass index 30+ - obesity ([id number]) BMI 30.0-30.9,a dult (Z68.30) Active confirmed Vital Signs Blood pressure systolic 110 mm Hg 05/01/20 25 Blood pressure diastolic 64 mm Hg 025 Heart Rate 94 /min 05/01/2025 Height 65 in 05/01/2025 Weight 181.4 lbs 05/01/2025 BMI 30.18 kg/m2 05/01/2025 Encounters Encounter Location Date Provider Diagnosis [facility] [address] [facility] 36 [facility] [address] [place] [id number] 05/01/2025 Jasen Evans Small cell carcinoma of [...] Name:Jasen Foster er, 07/31/2025 11:00:00 AM, [address] [facility] 36 [facility], [address], [place], [phone], Progress Notes * Gertrudis NOVAOB:1950 (74 yo F)Acc No.[id number]:05/01/2025 Progress Notes Patient: Gabriella REEDER Provider: Jasen Evans M.D. :1950 A ge:74 Y S ex:Female Date:05/01/2025 Address:[address] [place] [address] [place]-[id number] Subjective: * Chief Complaints: * [...] stic Procedure: H MH -Pneumonia 12/29-, [facility] ER SOA 2017, see above 06/07-06/10/2018. [...] estless legs - G25.81 5 . B NE 30.0-30.9,adult - Z68.30 ? Plan: * Treatment: * Procedure Codes: G 2211 Complex e/m visit add on, G8783 BP SCR PRFRM RCMDD DEFIND SCR INTVL, 3074F SYST BP LT 130 MM HG, 3078F DIAST BP < 80 MM HG * Follow Up: 2 Months * Images: Drawin05/01/25 [facility] [place] [facility] Billing Information: * Visit Code: 59933 Office Visit, Est Pt., Level 3. * [...] Evans M.D. Date: 0 05/01/2025 Generated for Malia peters/Ti/eTransmitting on: 1 11:21 AM EDT History and [...]
--- NOTE | 2025-06-08 11:00 | CT_ITS ---
FINAL REPORT TECHNIQUE: Routine axial images were obtained from the lung apices to below the diaphragm following IV contrast administration. Individualized dose reduction techniques using automated exposure control or adjustment of the mA and/or kV according to the patient size were employed. CLINICAL HISTORY: Breast cancer, restaging COMPARISON: 04/20/2025 FINDINGS: Mediastinal vasculature is well-opacified. There is no mediastinal mass or adenopathy. There are moderate coronary artery calcifications. The heart size is normal. There is prominent, asymmetric skin thickening of the left breast measuring 1.5 cm. There is underlying stranding. Surgical clips are seen in the left breast. There is no pleural or pericardial effusion. There is a calcified granuloma in the left lower lobe. The lungs are otherwise clear. IMPRESSION: Skin thickening and stranding in the left breast could be related to a combination of known neoplasm and posttreatment change. Reviewed, Interpreted and Dictated by Jimi Martinez MD Transcribed by Salima Blanhcard Authenticated and [facility]
--- NOTE | 2025-06-08 11:00 | CT_ITS ---
FINAL REPORT TECHNIQUE: After the administration of oral and intravenous contrast, axial images were obtained through the abdomen and pelvis by computed tomography. The study was performed with techniques to keep radiation dose as low as reasonably achievable, (ALARA). Individual dose reduction techniques using automated exposure control or adjustment of mA and/or kV according to the patient's size were employed. CLINICAL HISTORY: Breast cancer, restaging COMPARISON: CT chest dated 04/20/2025 FINDINGS: Abdomen: There is a large mass in the left lobe of the liver measuring 6.2 cm in diameter. This is larger than was previously seen on CT chest dated 04/20/2025. Findings are highly concerning for metastasis. There may be a small, satellite lesion measuring 7 mm in diameter. The gallbladder is absent. The spleen, pancreas, and adrenal glands are unremarkable there are tiny benign-appearing cysts in the right kidney. There is a benign cyst of the left kidney measuring 5.7 x 5.7 cm in diameter. Pelvis: There is stool throughout the redundant colon. There is moderate diverticulosis with no evidence of diverticulitis. The appendix is not identified. The urinary bladder is unremarkable. There is no free fluid or adenopathy. Advanced changes of degenerative disc disease are seen at L3-4, L4-5, and L5-S1. IMPRESSION: Large mass in the left lobe of the liver has increased from the previous exam and is likely due to progressive metastasis. PET/CT may be of benefit to better evaluate for more extensive disease. Reviewed, Interpreted and Dictated by Jimi Martinez MD Transcribed by Salima Blanchard Authenticated and [facility]
--- OUTSIDE RECORDS SUMMARY | 2025-06-08 11:20 | XMS_ITS | Clinical Summary ---
Author Organization Healthcare Address [address] [place] [address] Care Team Providers Care Securities Clerk Name Role Phone System, Provider Not In [...] - PPSV23, PCV20, or PCV21) 11/10/2018 09/15/2018 [id number] Vaccine (3 - Moderna risk series) 01/02/2021 [...] Health Maintenance Insurance [employer] MED[employer]ARE Care Teams Securities Clerk Relationship Specialty Start Date End Date System, Provider Not In, [place] [address] PCP - General Family Medicine 07/18/24
--- OUTSIDE RECORDS SUMMARY | 2025-06-08 11:20 | XMS_ITS | CCD ---
Author Name Interface, [id number] lity Address [address] [facility] Address [address] [place], [place] [id number] Reason for Visit Social History Date Name Value 05/11/2020 Sex Female
--- OUTSIDE RECORDS SUMMARY | 2025-06-08 11:21 | XMS_ITS | Encounter Summary ---
Author Organization Healthcare Address [address] [place] [address] Care Team Providers Care Leveler Name Role Phone System, Provider Not In MD Primary Care Provider Unavailable Encounter Details Date Type Department Care Team (Late st Contact Info) Description 06/27/2024 Orders Only External Location [address] [place] [address] Provider, External Social History Tobacco Use Types [...] on filedocumented in this encounter Care Teams Leveler Relationship Specialty Start Date End Date System, Provider Not In, [address] [place] [address] PCP - General Family Medicine 07/18/24 documented as of this encounter
--- OUTSIDE RECORDS SUMMARY | 2025-06-08 11:21 | XMS_ITS | Encounter Summary ---
Author Organization Healthcare Address [address] [place] [address] Care Team Providers Care Mobile Application Architect Name Role Phone System, Provider Not In MD Primary Care Provider Unavailable Encounter Details Date Type Department Care Team (Late st Contact Info) Description 01/19/2024 Orders Only External Location [address] [place] [address] Provider, External Social History Tobacco Use Types [...] on filedocumented in this encounter Care Teams Mobile Application Architect Relationship Specialty Start Date End Date System, Provider Not In, [address] [place] [address] PCP - General Family Medicine 07/18/24 documented as of this encounter
--- OUTSIDE RECORDS SUMMARY | 2025-06-08 11:21 | XMS_ITS | Encounter Summary ---
Author Organization Healthcare Address [address] [place] [address] Care Team Providers Care A And P Mechanic Name Role Phone System, Provider Not In MD Primary Care Provider Unavailable Encounter Details Date Type Department Care Team (Late st Contact Info) Description 06/27/2024 Orders Only External Location [address] [place] [phone] Provider, External Social History Tobacco Use Types [...] on filedocumented in this encounter Care Teams A And P Mechanic Relationship Specialty Start Date End Date System, Provider Not In, [address] [place] [address] PCP - General Family Medicine 07/18/24 documented as of this encounter
--- OUTSIDE RECORDS SUMMARY | 2025-06-08 11:21 | XMS_ITS | Patient Health Record ---
Author Organization [facility] Address [address] [facility] [address] [place] [id number] Care Team Providers Care Coremaker Bench Name Role Phone Jasen Evans Primary Care Provider Allergies No Known Allergies Results Component Value Reference Range Notes P-TSH Reviewed date:03/10/2025 09:52:44 AM Interpretation:Normal Performing Lab: Notes/Report: Test performed by [facility] [address] [place] [address] , [address], [place] [address] Mohsen Puckett MD, Casing Worker CLIA: [id number] TSH 2.54 0.43-5.25 mU/L P-Comprehensive Metabolic Pa sha (CMP) Reviewed date:03/10/2025 09:52:44 AM Interpretation:Na 134, chlor 89, gluc 103, alk phos 122 Performing Lab: Notes/Report: Test performed by [facility] [address] [place] [address] , [address], [place] [address] Mohsen Puckett MD, Casing Worker CLIA: [id number] Sodium 134 135-145 mmol/L Potassium 4.2 3.5-5.3 [...] 0.2 <0.2-1.2 mg/dL A/G Ratio 1.9 1.1-2.5 CBC Venipuncture (in house) Reviewed date:02/03/2025 03:44:58 [...] - 38 platlet 381 100 - 400 H-BUN/CREAT Reviewed date:05/31/2025 09:27:42 AM Interpretation: Performing Lab: Notes/Report: BUN 20 7-17 mg/dl CREATT 0.80 0.52-1.04 mg/dl GFRAA 85 >60 ML/MIN EGFR 71 >60 ml/min Glycohemoglobin A1c (in hous e) Reviewed date:07/18/2024 01:07:28 PM Interpretation:5.9 Performing Lab: Notes/Report: 5.9 glycohemoglobin 5.9% 5 - 6.5 % P-Basic Metabolic Panel (BMP ) Reviewed date:07/18/2024 01:07:27 PM Interpretation:Na 133, cl 96, gluc 108 Performing Lab: Notes/Report: Test performed by [facility] [address] [place] [address] , [address], [place] [address] Mohsen Puckett MD, Casing Worker CLIA: [id number] Sodium 133 135-145 mmol/L Potassium 3.8 3.5-5.3 mmol/L Chloride 96 97-108 mmol/L CO2 26 22-32 mmol/L Glucose 108 65-99 mg/dL BUN 17 8-23 mg/dL Creatinine 0.70 0.50-1.00 mg/dL Calcium 9.5 8.6-10.4 mg/dL eGFR by Creatinine 92 >59 mL/min/1.73m2 P-TSH Reviewed date:07/18/2024 01:07:28 PM Interpretation:0.41 Performing Lab: Notes/Report: Test performed by [facility] [address] [place] [address] [address], [place] [address] Mohsen Puckett MD, Casing Worker CLIA: [id number] TSH 0.41 0.43-5.25 mU/L CT Scan : Spine, Thoracic, w ithout contrast Reviewed date:07/26/2024 10:29:09 AM Interpretation:negative t-spine, left upper lobe lung nodule Performing Lab: Notes/Report: negative t-spine, left upper lobe lung nodule P-Basic Metabolic Panel (BMP ) Reviewed date:09/14/2024 01:09:49 PM Interpretation:satisfactory Performing Lab: Notes/Report: Test performed by [facility] [address] [place] [address] [address], [place] [address] Mohsen Puckett MD, Casing Worker CLIA: [id number] Sodium 138 135-145 mmol/L Potassium 4.5 3.5-5.3 mmol/L Chloride 96 97-108 mmol/L CO2 29 22-32 mmol/L Glucose 88 65-99 mg/dL BUN 15 8-23 mg/dL Creatinine 1.00 0.50-1.00 mg/dL Calcium 9.6 8.6-10.4 mg/dL eGFR by Creatinine 60 >59 mL/min/1.73m2 Medications Medication SIG (Take, Route, Frequency, Duration) [...] W/U Status Risk Notes Problem Essential hypertension (70364675) Essential hypertension (I10) Active confirmed Problem Abnormal mammogram (070826851) Abnormal mammogram (R92.8) Active confirmed Problem Solitary nodule of lung (917290962) Lung nodule (R91.1) Active confirmed Problem Osteopenia (981456443) Osteopenia (M85.80) Active confirmed Problem Sebaceous cyst (408266763) Sebaceous cyst (L72.3) Active confirmed Problem Body mass index 30+ - obesity (857686739) BMI 30.0-30.9,adult (Z68.30) Active confirmed Problem Restless legs (51231368) Restless legs (G25.81) Active confirmed Problem Localized edema (5346672) Localized edema (R60.0) Active confirmed Problem Mixed hyperlipidemia (408215729) Mixed hyperlipidemia (E78.2) Active confirmed Problem Primary insomnia (0306928) Primary insomnia (F51.01) Active confirmed Problem Pulmonary nodule (792892058) Pulmonary nodule (R91.1) Active confirmed Problem Acquired hypothyroidism (103322072) Acquired hypothyroidism (E03.9) Active confirmed Problem Pulmonary emphysema (69122092) Pulmonary emphysema, unspecified emphysema type (J43.9) Active confirmed Problem Reactive depression (situational) (26645742) Situational depression (F43.21) Active confirmed Problem Dermatitis (264003065) Dermatitis (L30.9) Active confirmed Problem Osteoarthritis of knee (628948503) Primary osteoarthritis of right knee (M17.11) Active confirmed Problem Osteoarthritis of knee (577061525) Primary osteoarthritis of left knee (M17.12) Active confirmed Problem Artificial knee joint present (142573220198) Status post right knee replacement (Z96.651) Active confirmed Problem Malignant neoplasm of female breast (396209015) 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) Active confirmed Problem Fibrocystic breast changes (07126722) Fibrocystic breast disease (FCBD), unspecified laterality (N60.19) Active confirmed Problem Steatosis of liver (782684223) Steatosis of liver (K76.0) Active confirmed Problem Radicular pain (71239163) Radicular pain (M54.10) Active confirmed Problem Malignant neoplasm of upper lobe, bronchus or lung (520922325) 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) Active confirmed Vital Signs Heart Rate 94 /min 05/01/2025 Blood pressure diastolic 64 mm Hg 05/01/2025 Height 65 in 05/01/2025 Blood pressure systolic 110 mm Hg 05/01/2025 Weight 181.4 lbs 05/01/2025 BMI 30.18 kg/m2 05/01/2025 Encounters Encounter Location Date Provider Diagnosis [facility] [address] [facility] [address] [place], [place] [id number] 07/11/2024 Jasen Evans Essential hypertensi on I10 ; Pulmonary emphysema, unspecified emphysema type J43.9 ; Acquired hypothyroidism E03.9 ; Hyperglycemia R73.9 ; Radicular pain M54.10 and Restless leg syndrome G25.[address] [facility] [address] [place], [place] [id number] 09/08/2024 Jasen Evans Localized edema R60. 0 ; Pulmonary emphysema, unspecified emphysema type J43.9 ; Essential hypertension I10 and 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 C34.[address] [facility] [address] [place], [place] [id number] 09/15/2024 Jasen Evans 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 C34.12 and Localized edema R60.[address] [facility] [address] [place], [place] [id number] 01/20/2025 Jasen Evans 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 C34.12 ; Ductal carcinoma of left breast C50.912 ; Acquired hypothyroidism E03.9 ; Pulmonary emphysema, unspecified emphysema type J43.9 ; Essential hypertension I10 and BMI 28.0-28.9,adult Z68.[address] [facility] [address] [place], [place] [id number] 05/01/2025 Jasen Evans 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 C34.12 ; Osteopenia M85.80 ; Status post right knee replacement Z96.651 ; Restless legs G25.81 and BMI 30.0-30.9,adult Z68.[address] [facility] [address] [place], [place] [id number] 06/28/2024 Jasen Evans [facility] [address] [place], [place] [id number] 07/18/2024 Jasen Evans [facility] [address] [place], [place] [id number] 10/07/2024 Jasen 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 [facility] [address] [place], [place] [id number] 12/05/2024 Jasen Evans Restless leg syndrom e G25.81 [facility] [address] [place], [place] [id number] 01/18/2025 Jasen Evans [facility] [address] [place], [place] [id number] 01/23/2025 Jasen Evans [facility] [address] [place] [id number] 01/27/2025 Jasen Evans [facility] [address] [place] [id number] 01/31/2025 Jasen Evans [facility] [address] [place], [place] [id number] 03/10/2025 Jasen Evans Assessments Encounter Date Diagnosis [...] [address], [address], [place], [place], [id number], Insurance Providers Payer Name Payer Address Payer Phone Subscriber Number Group Number Insured Name Patient Relationship to Insured Coverage Start Date Coverage End Date [employer] [place] [address] [place] [phone] [id number] Gabriella Grider Self - patient is the insured Medical (General) History Medical History History ICD Code Hypertension Arthritis 03/2013 biopsy suggestive of Lupus Eryth ematosis 2014 Cardiolyte GXT neg, 62% EF Shingix #1, 09/15/2018 Surgical History Surgery Date(Month/Year) lumpectomy R breast 02/2008 cholecystectomy 08/2009 rt knee replacement 06/07/2018 left knee replacement 2018 Ductal cacinoma of left breast 06/2020 lumpectomy of left breast, Dr. Riley Hospitalization History Reason Date(Month/Year) see above 06/07-06/10/2018 [facility] 2017 [facility] -Pneumonia 12/29-
[2025-06-08] MEDS: SODIUM CHLORIDE 0.9% 10ML SYR (RAD ONLY) 10 ML IV (12:04)
[2025-06-08] MEDS: IOPAMIDOL-370 (76%);100ML BOTTLE 75 ML IV (12:04)
== END 2025-06-08 23:59 | disposition home or self-care (01) ==
LOC: RAD 11:09
PROVIDERS: PCP Family Medicine; Visit Provider Internal Medicine Medical Oncology
DX: C34.12 Malignant neoplasm of upper lobe, left bronchus or lung (principal); R93.89 Abnormal findings on diagnostic imaging of other specified body structures; R93.2 Abnormal findings on diagnostic imaging of liver and biliary tract
CPT/HCPCS: 71260; 74177; Q9967